=== PATIENT | female | born 1940 | race Caucasian/White ===

== ENCOUNTER → 2017-04-19 15:36 | Outpatient (CLI) | payer MEDICARE, SELFPAY ==
--- NOTE | 2017-04-19 15:46 | CT_ITS ---
STUDY: CTA CHEST REASON FOR EXAM: Female, 76 years old. Shortness of breath. Elevated d-dimer. RADIATION DOSAGE (If Supplied By Facility): CTDIvol = ( 9.40 ) mGy, DLP = ( 391.91 ) mGycm TECHNIQUE: The examination was performed with the intravenous administration of 100ML ml of Isovue 370 contrast material. Post-processing of the angiographic images was performed, with multiplanar reformation and 3D reconstruction. Individualized dose optimization techniques were used for this CT. COMPARISON: None. FINDINGS: Normal enhancement of the main pulmonary artery and right and left pulmonary arteries. Normal enhancement of the bilateral peripheral pulmonary arteries. There is no demonstrated pulmonary embolism. There is atherosclerotic tortuosity of the thoracic aorta without aneurysm. There is no demonstrated aortic dissection. Normal heart and pericardium. Sternal cerclage wires and vascular clips are present from a prior sternotomy and coronary artery bypass graft procedure (CABG). Normal mediastinum. Normal hilar regions. Normal visualized trachea and bronchi. The lungs are well expanded. There is minimal infiltrate versus scarring in the right lung apex. There is a small right pleural effusion and atelectasis. There are bilateral breast implants without evidence of leakage. There is evidence of median sternotomy. There are degenerative changes of thoracic spine. There is a large cyst in the upper pole the left kidney measuring approximately 7.[address]/CTA Chest W/WO Contrast IMPRESSION: 1. No evidence of pulmonary embolus. 2. No aortic dissection or aneurysm. 3. Status post CABG procedure. 4. Right pleural effusion and atelectasis. 5. Bilateral breast implants. 6. Left renal cyst. Electronically Signed: Lul Almanza DO at 17:12 EST Tel [phone], Service support ,
[2017-04-19 16:11] LABS: CREATININE FINGERSTICK 0.7 mg/dL (0.55-1.02)
== END ==
PROVIDERS: Family Provider Internal Medicine; PCP Internal Medicine; Visit Provider Nurse Practitioner
DX: R07.9 Chest pain, unspecified (principal); R06.02 Shortness of breath; R79.89 Other specified abnormal findings of blood chemistry
CPT/HCPCS: 71275; Q9967

== ENCOUNTER → 2017-10-26 17:35 | Outpatient (CLI) | payer MEDICARE, SELFPAY | PROVIDERS: Visit Provider Urology | DX: R82.99 Other abnormal findings in urine (principal) | CPT/HCPCS: 87086; 87088 ==

== ENCOUNTER → 2019-03-29 | Outpatient (CLI) | payer MEDICARE, SELFPAY ==
[2019-03-15 09:02] VITALS: BMI 29.7
== END | disposition home or self-care (01) ==
LOC: CVS 10:50
PROVIDERS: PCP Internal Medicine; Referring Provider Internal Medicine Cardiovascular Disease; Visit Provider Internal Medicine Cardiovascular Disease
DX: I25.10 Atherosclerotic heart disease of native coronary artery without angina pectoris (principal); Z95.2 Presence of prosthetic heart valve
CPT/HCPCS: 93306

== ENCOUNTER → 2019-04-01 | Outpatient (CLI) | payer MEDICARE, SELFPAY ==
[2019-03-15 09:02] VITALS: BMI 29.7
--- NOTE | 2019-04-01 10:33 | RAD_ITS ---
HISTORY: SOB PATIENT STATES STATED HE SAW FLUID IN HER CHEST ON THE ECHO. EXAM: XR Chest 2 Views: COMPARISON: CT scan of the chest from April 19, 2017 FINDINGS: # of images incl. paperwork: 2 Calcific plaque within the aortic arch persists. Sternal wires persists. Hyperdense capsules around the patient's breast implants are again demonstrated. Heart is not enlarged. No acute osseous pathology perceived. Pulmonary vascularity is distinct. No effusions. RAD/Chest PA and Lateral IMPRESSION: No acute cardiopulmonary disease perceived. at 0603 Reported and signed by: Michel Nolasco MD Electronically Signed: Michel Nolasco MD at 6:02 EST Tel , Service support ,
[2019-04-01 11:43] LABS: Anion Gap 3 (5-15); BUN 16 mg/dL (7-18); BUN/Creat Ratio 18.7 RATIO (10-20); Calcium,Total 10.1 mg/dL (8.5-10.1); Chloride 102 mmol/L (98-107); Creatinine, Serum 0.86 mg/dL (0.55-1.02); EST Glomerular Filtration Rate 68 mL/min (>60); Est Glom Filt Rate - Afr Amer 82 mL/min (>60); Glucose 89 mg/dL (74-106); Potassium 4.1 mmol/L (3.5-5.1); Sodium Level 138 mmol/L (136-145)
[2019-04-01 11:52] LABS: BNP,B-Type NATRIURETIC PEPTIDE 262.7 pg/mL (0-100)
== END | disposition home or self-care (01) ==
PROVIDERS: PCP Internal Medicine; Referring Provider Internal Medicine Cardiovascular Disease; Visit Provider Internal Medicine Cardiovascular Disease
DX: I25.10 Atherosclerotic heart disease of native coronary artery without angina pectoris (principal); I35.0 Nonrheumatic aortic (valve) stenosis; I36.1 Nonrheumatic tricuspid (valve) insufficiency; J90 Pleural effusion, not elsewhere classified; Z95.3 Presence of xenogenic heart valve
CPT/HCPCS: 36415; 71046; 80048; 83880

== ENCOUNTER → 2019-09-30 10:46 | Outpatient (CLI) | payer MEDICARE, SELFPAY ==
[2019-03-15 09:02] VITALS: BMI 29.7
[2019-09-30 11:56] LABS: AST(SGOT) 20 U/L (15-37); Alanine Aminotransfer ALT/SGPT 25 U/L (13-56); Albumin, Serum 3.6 g/dL (3.2-5.0); Alkaline Phosphatase 104 U/L (45-117); Bilirubin, Direct 0.21 mg/dL (0.00-0.30); Cholesterol 175 mg/dL (200); Globulin 4.3 g/dL (2.2-4.2); High Density Lipoprotein 61 mg/dL; Protein, Total 7.9 g/dL (6.4-8.2); Triglycerides 95 mg/dL; Very Low Density Lipoprotein 19 mg/dL (5-40)
== END ==
PROVIDERS: PCP Internal Medicine; Referring Provider Nurse Practitioner Family; Visit Provider Nurse Practitioner Family
DX: I25.10 Atherosclerotic heart disease of native coronary artery without angina pectoris (principal); E78.00 Pure hypercholesterolemia, unspecified; I10 Essential (primary) hypertension
CPT/HCPCS: 36415; 80061; 80076

== ENCOUNTER → 2019-11-26 | Outpatient (CLI) | payer MEDICARE, SELFPAY ==
[2019-10-04 11:10] VITALS: BMI 26.9
== END | disposition home or self-care (01) ==
LOC: CVS 10:45
PROVIDERS: PCP Internal Medicine; Referring Provider Internal Medicine Cardiovascular Disease; Visit Provider Internal Medicine Cardiovascular Disease
DX: I25.10 Atherosclerotic heart disease of native coronary artery without angina pectoris (principal)

== ENCOUNTER → 2020-08-14 11:18 | Outpatient (CLI) | payer MEDICARE, SELFPAY ==
[2019-10-04 11:10] VITALS: BMI 26.9
[2020-08-14 13:48] LABS: AST(SGOT) 17 U/L (15-37); Alanine Aminotransfer ALT/SGPT 20 U/L (13-56); Albumin, Serum 3.6 g/dL (3.2-5.0); Alkaline Phosphatase 104 U/L (45-117); Bilirubin, Direct 0.16 mg/dL (0.00-0.30); Cholesterol 170 mg/dL (200); Globulin 4.1 g/dL (2.2-4.2); High Density Lipoprotein 72 mg/dL; Protein, Total 7.7 g/dL (6.4-8.2); Triglycerides 75 mg/dL; Very Low Density Lipoprotein 15 mg/dL (5-40)
== END ==
PROVIDERS: PCP Internal Medicine; Visit Provider Internal Medicine Cardiovascular Disease
DX: E78.00 Pure hypercholesterolemia, unspecified (principal)
CPT/HCPCS: 36415; 80061; 80076

== ENCOUNTER → 2020-09-09 09:46 | Outpatient (CLI) | payer MEDICARE, SELFPAY ==
[2019-10-04 11:10] VITALS: BMI 26.9
[2020-08-21 14:44] VITALS: BMI 26.4
--- NOTE | 2020-09-09 09:50 | ECHOCS_ITS ---
Reason For Study: VALVE REPLACEMENT EVAL Procedure This was a 2D Doppler, Color Flow transthoracic echocardiogram. Strain analysis not performed due to suboptimal images. The study was technically difficult. Contrast injection was performed. Exam performed in department. Left Ventricle Normal LV size. Left ventricular systolic function is normal. The estimated ejection fraction is 65 %. No regional wall motion abnormalities noted. Right Ventricle Normal RV size. Normal systolic function. Atria The left atrium is mildly enlarged. Normal right atrium. No doppler evidence for ASD. Mitral Valve There is severe mitral annular calcification. Extension of the mitral annular calcification onto the mitral valve leaflets. Mild-Moderate mitral valve stenosis. Trivial mitral valve insufficiency. Tricuspid Valve Normal tricuspid valve. Mild tricuspid valve insufficiency. Right ventricular systolic pressure estimated to be 34 mmHg. Aortic Valve Stable appearing bioprosthetic aortic valve apparatus. Trivial transvalvular insufficiency of the aortic valve. Pulmonic Valve Mild (1+) pulmonic valve insufficiency. Great Vessels Normal sized aortic root. Pericardium/Pleural No pericardial effusion. Medication 22 gauge I.V. with prn adaptor inserted into left arm. Diluted definity 3ml given slow IV push to enhance endocardial definition. MMode/2D Measurements & Calculations LVIDd: 3.3 cm IVSd: 1.0 cm LVOT diam: 1.9 cm LVIDs: 2.1 cm LVPWd: 1.00 cm RVDd: 3.1 cm FS: 36.8 % LVOT area: 2.8 cm2 Ao root diam: 3.4 cm LAV(MOD-bp): 42.8 ml LVAd ap4: 22.9 cm2 LAV(MOD-bp) Indexed: 24.2 ml/m2 LVLd ap4: 6.7 cm LAV(MOD-sp2): 40.8 ml EDV(MOD-sp4): 63.0 ml LAV(MOD-sp4): 44.3 ml EDV(sp4-el): 66.5 ml LVAs ap4: 12.8 cm2 LVLs ap4: 5.6 cm ESV(MOD-sp4): 24.1 ml ESV(sp4-el): 24.6 ml EF(MOD-sp4): 61.8 % EF(sp4-el): 63.1 % SV(MOD-sp4): 38.9 ml SV(sp4-el): 42.0 ml LA A4 area: 17.2 cm2 LA dimension(2D): 3.9 cm RA A4 area: 12.9 cm2 Time Measurements MV dec time: 0.38 sec Doppler Measurements & Calculations MV E max lencho: 164.0 cm/sec Lat Peak E' Lencho: 10.3 cm/sec Med Peak E' Lencho: 4.3 cm/sec MV A max lencho: 94.5 cm/sec E/E' lat: 16.0 E/E' med: 38.4 MV E/A: 1.7 MV V2 max: 183.1 cm/sec MV P1/2t max lencho: 187.0 cm/sec Ao V2 max: 189.4 cm/sec MV max P.4 mmHg MV P1/2t: 123.5 msec Ao max P.3 mmHg MV V2 mean: 102.2 cm/sec MV dec slope: 443.4 cm/sec2 Ao V2 mean: 121.0 cm/sec MV mean P.8 mmHg MVA(P1/2t): 1.8 cm2 Ao mean P.0 mmHg MV V2 VTI: 55.3 cm Ao V2 VTI: 43.0 cm MVA(VTI): 1.2 cm2 SOLOMON(I,D): 1.6 cm2 SOLOMON(V,D): 1.4 cm2 LV V1 max: 91.3 cm/sec SV(LVOT): 68.5 ml PA V2 max: 90.9 cm/sec LV V1 max P.3 mmHg LV V1 mean P.9 mmHg LV V1 mean: 66.3 cm/sec LV V1 VTI: 24.4 cm PI end-d lencho: 87.6 cm/sec TR max lencho: 278.7 cm/sec MV P1/2t-pr_phl: 121.8 msec TR max P.1 mmHg ECHO/Echo Complete W/ Contrast Interpretation Summary The study was technically difficult. Contrast injection was performed. Left ventricular systolic function is normal. The estimated ejection fraction is 65 %. The left atrium is mildly enlarged. There is severe mitral annular calcification. Extension of the mitral annular calcification onto the mitral valve leaflets. Mild-Moderate mitral valve stenosis. Trivial mitral valve insufficiency. Mild tricuspid valve insufficiency. Stable appearing bioprosthetic aortic valve apparatus. Trivial transvalvular insufficiency of the aortic valve. Mild (1+) pulmonic valve insufficiency. Right ventricular systolic pressure estimated to be 34 mmHg. Transmitral diastolic flow velocities suggest diastolic dysfunction (pseudonorm al pattern). Ordering Physician: Nixon Waldron Referring Physician: SHARRI RIVERA Performed By: Enedina Onofre RDCS
== END ==
PROVIDERS: PCP Internal Medicine; Referring Provider Internal Medicine Cardiovascular Disease; Visit Provider Internal Medicine Cardiovascular Disease
DX: I25.10 Atherosclerotic heart disease of native coronary artery without angina pectoris (principal)
CPT/HCPCS: 93306; Q9957; A4216; C8929; J3490

== ENCOUNTER 2020-11-29 13:45 | Emergency (ER) | payer MEDICARE, SELFPAY ==
[2020-11-29 13:46] VITALS: BP 130/63; PULSE 75; RESP 18; TEMP 36.6; O2SAT 95; BMI 27.6
--- NOTE | 2020-11-29 15:22 | EDS_ITS ---
HPI History of Present Illness Chief Complaint: Ear Problem Informant: patient Onset/Context/Timing Onset: Yesterday Context: Sudden Onset Timing: Continuous Quality: Essentially total hearing loss left side Location: Left ear Current Severity: Severe Maximum Severity: Severe Worsened by: Nothing Relieved by: Nothing Associated Symptoms Associated Symptoms: Tinnitus Narrative Narrative: Patient is an elderly woman who presents with 24-hour history of abrupt hearing loss left ear. She has history of tenderness, hypothyroidism, hypercholesterolemia, essential hypertension, GERD and rheumatic heart disease. There is no history of diabetes. Patient states she has 2% hearing on the left side. She rubs her fingers by her ear and cannot hear anything. She denies headache. Denies visual symptoms. She denies trouble with speech or swallowing. She denies paresthesia, anesthesia motors. Denies problems with balance. She has no other complaints or symptoms. 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 Breast cancer Endometrial cancer Essential hypertension GERD (gastroesophageal reflux disease) Hypothyroidism Non-rheumatic mitral valve stenosis Nonrheumatic aortic (valve) stenosis Nonrheumatic tricuspid valve regurgitation Pleural effusion Pure hypercholesterolemia Renal cell carcinoma Tachycardia Home Medications multivitamin with iron 1 ea PO DAILY 06/25/16 [History Last Taken 06/25/16 08:00] ascorbic acid (vitamin C) 500 mg tablet 500 mg PO DAILY 10/04/19 [History Last Taken Unknown] atenolol 25 mg tablet 25 mg PO BID #180 tab 08/21/20 [Rx Last Taken Unknown] levothyroxine 75 mcg tablet 75 mcg PO DAILY 08/21/20 [History Last Taken Unknown] methenamine mandelate 1 gram tablet 1 g PO DAILY tab 08/21/20 [History Last Taken Unknown] rosuvastatin 10 mg tablet 10 mg PO DAILY 08/21/20 [History Last Taken Unknown] spironolactone 25 mg tablet 25 mg PO DAILY #90 tab 10/15/20 [Rx Last Taken Unknown] prednisone 10 mg PO UD #60 tab 11/29/20 [Rx Last Taken Unknown] Allergy/AdvReac Type Severity Reaction Status Date / Time adhesive tape Allergy Severe rash Verified 11/29/20 14:31 levofloxacin Allergy Hives Verified 11/29/20 14:31 nitrofurantoin Allergy Hives, Verified 11/29/20 14:31 Fever Sulfa (Sulfonamide Allergy Hives Verified 11/29/20 14:31 Antibiotics) ampicillin AdvReac Diarrhea Verified 11/29/20 14:31 cortisone AdvReac Increased Verified 11/29/20 15:32 BP, Flushed face (From Intraarticular Injection) Family History Father CAD (coronary artery disease) Diabetes Uncle Myocardial infarction CAD (coronary artery disease) Brother Diabetes Brother Cancer Surgical History History of aortic valve replacement with bioprosthetic valve (~12/28/12) History of appendectomy (~06/25/16) History of bilateral mastectomy History of bilateral oophorectomy History of dilatation and curettage (~2012) History of hysterectomy History of left heart catheterization (LHC) (~11/23/12) History of myomectomy (~2012) History of tonsillectomy Status post hysteroscopic polypectomy (~2012) Social History (Updated 11/29/20 @ 15:[address] Jovanny Dao MD) household members: none Smoking Status: Never smoker alcohol intake: current details: Rare substance use type: does not use caffeine: No ROS ROS ED Constitutional Constitutional ED: Denies chills, fever(s), subjective or sweats Eyes Eyes: Denies blurry vision, change in vision or diplopia ENT ENT ED: Reports other Details: Significant loss of hearing left ear. She denies drainage from her ear. She denies rash. Denies numbness of her face. ; Denies ear pain, rhinorrhea or sore throat Cardiovascular Cardiovascular: Denies chest pain or palpitations Respiratory/Chest Respiratory/Chest: Denies dyspnea Gastrointestinal Gastrointestinal: Denies nausea or vomiting Integumentary Denies Abrasions or rash Neurologic Neurologic: Denies headache(s), paresthesias or weakness Allergic/Immunologic Allergic/Immunologic ED: Denies mouth swelling, tongue swelling or urticaria EXAM Physical Exam Const Vital Signs: 11/29/20 13:46 Temperature 98 F Temperature Source Temporal Pulse Rate 75 Respiratory Rate 18 Blood Pressure 130/63 H Blood Pressure Mean 85 Pulse Ox 95 Oxygen Delivery Method Room Air Positive well nourished and well developed General Appearance ED: well developed and NAD; Negative for pallor HEENT Reports TM's clear, moist mucous membranes and dry mucous membranes HEENT Narrative: Macario test lateralizes to the right. Sonja test indicates problems with bone and air conduction. The TM appears normal with normal landma rks. There is no obvious or significant effusion noted. There is no pain with pressure on the tragus plan auricle. There is no lesions in the auditory canal. There is no tenderness over the mastoid region. There is no preauricular lymphadenopathy. Tympanic Membrane ED: Yes TM's clear Mouth ED: Yes dry mucous membranes Mouth: dry mucous membranes Eyes PERRL and EOMs intact bilaterally General Eye ED: Negative for pale conjunctiva or scleral icterus Neck no lymphadenopathy, supple and no JVD General: Negative for tenderness Chest Wall Negative for inspection of chest normal or palpation of chest normal Neuro oriented x3 and CN's II-XII intact bilaterally Sensorium / Orientation: alert Psych mental status grossly normal Skin no rashes or lesions noted and no wounds General Skin Exam: Negative for jaundice or pallor MDM MDM MDM Narrative Medical decision making narrative: Patient has evidence of of hearing loss due to neuro and conduction hearing loss based on patient's answers to the Sonja test. Case discussed with Dr. Robert Graff who is on-call for ENT. He requested high-dose prednisone. Patient is to call the office tomorrow to be seen later this coming week. Patient received 60 mg of prednisone in the department. She was written for 50 mg daily. Discharge Plan Triage Chief Complaint: Ear Problem ED Provider: Jovanny Dao Dx/Rx/DC Orders Clinical Impression: Hearing loss in left ear Instructions: Understanding Hearing Loss Prescriptions: New prednisone 10 mg tablet 10 mg PO UD Qty: 60 RF: 0 No Action ascorbic acid (vitamin C) 500 mg tablet 500 mg PO DAILY RF: 0 levothyroxine 75 mcg tablet 75 mcg PO DAILY RF: 0 rosuvastatin 10 mg tablet 10 mg PO DAILY RF: 0 atenolol 25 mg tablet 25 mg PO BID Qty: 180 RF: 4 methenamine mandelate 1 gram tablet 1 g PO DAILY RF: 0 multivitamin with iron 1 EACH tablet 1 ea PO DAILY RF: 0 spironolactone 25 mg tablet 25 mg PO DAILY Qty: 90 RF: 3 Primary Care Provider: Heaven Nelson Referrals: Heaven Nelson MD [Primary Care Provider] - Robert Graff MD [STAFF PHYSICIAN] - 3-5 Days Activity Restrictions/Additional Instructions: Call Dr. Robert Graff's office tomorrow morning for appointment to be seen later this week Disposition Disposition: Home, Self Care
[2020-11-29] MEDS: predniSONE 20 MG Tablet 60 MG PO (15:34)
[2020-11-29 15:47] VITALS: BP 129/78; PULSE 80; RESP 15; O2SAT 98
== END 2020-11-29 15:50 | disposition home or self-care (01) ==
PROVIDERS: Emergency Provider Emergency Medicine; PCP Internal Medicine
DX: H91.92 Unspecified hearing loss, left ear (principal); E03.9 Hypothyroidism, unspecified; E78.00 Pure hypercholesterolemia, unspecified; I10 Essential (primary) hypertension; K21.9 Gastro-esophageal reflux disease without esophagitis; I25.10 Atherosclerotic heart disease of native coronary artery without angina pectoris; Z79.899 Other long term (current) drug therapy
CPT/HCPCS: 99282

== ENCOUNTER → 2021-01-04 07:12 | Outpatient (CLI) | payer MEDICARE, SELFPAY ==
--- NOTE | 2021-01-04 07:37 | MRI_ITS ---
EXAM: MR HEAD WITHOUT AND WITH INTRAVENOUS CONTRAST, INTERNAL AUDITORY CANAL PROTOCOL : 1940 CLINICAL INDICATION: HEARING LOSS TECHNIQUE: Multiplanar and multisequence MR images of the internal auditory canal were obtained without and with intravenous contrast. This report was created using [employer] report [employer] technology. CONTRAST: IV 15cc dotarem COMPARISON: None. FINDINGS: CRANIAL NERVES: Unremarkable. No mass. No abnormal enhancement. COCHLEA AND SEMICIRCULAR CANALS: Unremarkable. CEREBELLOPONTINE ANGLES: Unremarkable. No mass. BRAIN AND EXTRA-AXIAL SPACES: Multiple foci of increased T2 signal intensity within the cerebral white matter consistent with gliosis/chronic microvascular disease. No intra- or extra-axial hemorrhage. No intracranial mass or mass effect. There is preservation of the adams/white matter interface. Posterior fossa structures are unremarkable. Ventricles are appropriate for age. No hydrocephalus. Basal cisterns are patent. No abnormal contrast enhancement BONES/JOINTS: Unremarkable. No discrete lytic or blastic abnormalities. SINUSES: 15 mm mucous retention cyst noted within the left maxillary sinus. MASTOID AIR CELLS: Unremarkable as visualized. Clear. ORBITS: Unremarkable as visualized. Both globes, extraocular muscles, optic nerves and retrobulbar fat appear unremarkable. MRI/Brain W/WO Contrast IMPRESSION: 1. No acute intracranial abnormality. 2. Chronic microvascular changes. 3. Normal examination of the IACs and temporal bones. at 1043 Reported and signed by: Foster Vargas MD Electronically Signed: Foster Vargas MD at 10:42 EST Tel , Service support ,
[2021-01-04 08:10] LABS: CREATININE FINGERSTICK < 0.6 mg/dL (0.55-1.02); EGFR FINGERSTICK > 60.0000 mL/min (>60)
== END ==
PROVIDERS: PCP Internal Medicine; Referring Provider Otolaryngology; Visit Provider Otolaryngology
DX: H91.22 Sudden idiopathic hearing loss, left ear (principal)
CPT/HCPCS: 70553; A9585

== ENCOUNTER → 2021-07-09 | Outpatient (CLI) | payer MEDICARE, SELFPAY ==
--- NOTE | 2021-07-09 13:52 | ECHOD_ITS ---
Reason For Study: valve replacement Procedure This was a 2D Doppler, Color Flow transthoracic echocardiogram. The study was technically difficult. Contrast injection was performed. Exam performed in department. Left Ventricle Based upon the 2D echocardiographic and contrast enhanced images obtained there appears to be grossly normal left ventricular size, wall motion, and systolic function. The estimated ejection fraction is 65 %. Right Ventricle Based upon the 2D echocardiographic images obtained there appears to be grossly normal right ventricular size and systolic function. Atria The left atrium is mildly enlarged. Normal right atrium. No doppler evidence for ASD. Mitral Valve There is severe mitral annular calcification. Extension of the mitral annular calcification on the base of the posterior mitral valve leaflet. Anterior leaflet diffuse mitral valve thickening. Mild focal mitral valve calcification of the anterior leaflet. Based upon the mitral valve gradients obtained there appears to be mild to moderate mitral valve stenosis. Trivial mitral valve insufficiency. Tricuspid Valve Normal tricuspid valve. Mild to moderate (1-2+) tricuspid valve insufficiency. Right ventricular systolic pressure estimated to be 38 mmHg. Aortic Valve Stable appearing bioprosthetic aortic valve apparatus. Trivial transvalvular insufficiency of the aortic valve. Pulmonic Valve The pulmonic valve is not well visualized. Mild (1+) pulmonic valve insufficiency. Great Vessels Normal sized aortic root. Pericardium/Pleural No pericardial effusion. Medication 22 gauge I.V. with prn adaptor inserted into left arm. Diluted definity 4ml given slow IV push to enhance endocardial definition. MMode/2D Measurements & Calculations LVIDd: 3.5 cm IVSd: 1.2 cm Ao root diam: 2.1 cm LVIDs: 2.1 cm LVPWd: 0.92 cm FS: 39.4 % Doppler Measurements & Calculations MV E max lencho: 134.3 cm/sec Lat Peak E' Lencho: 8.8 cm/sec Med Peak E' Lencho: 5.4 cm/sec MV A max lencho: 103.5 cm/sec E/E' lat: 15.3 E/E' med: 24.8 MV E/A: 1.3 MV V2 max: 155.4 cm/sec MV P1/2t max lencho: 145.1 cm/sec Ao V2 max: 178.1 cm/sec MV max P.7 mmHg MV P1/2t: 85.2 msec Ao max P.8 mmHg MV V2 mean: 96.5 cm/sec Ao V2 mean: 124.6 cm/sec MV mean P.0 mmHg MV dec slope: 499.0 cm/sec2 Ao mean P.8 mmHg MV V2 VTI: 40.5 cm MVA(P1/2t): 2.6 cm2 Ao V2 VTI: 38.1 cm LV V1 max: 105.7 cm/sec PA V2 max: 114.5 cm/sec TR max lencho: 295.9 cm/sec LV V1 max P.5 mmHg TR max P.0 mmHg LV V1 mean P.5 mmHg LV V1 mean: 75.9 cm/sec LV V1 VTI: 23.3 cm ECHO/Echo Complete W/ Contrast Interpretation Summary The study was technically difficult. Contrast injection was performed. Based upon the 2D echocardiographic and contrast enhanced images obtained there appears to be grossly normal left ventricular size, wall motion, and systolic function. The estimated ejection fraction is 65 %. The left atrium is mildly enlarged. There is severe mitral annular calcification. Extension of the mitral annular calcification on the base of the posterior mitr al valve leaflet. Anterior leaflet diffuse mitral valve thickening. Mild focal mitral valve calcification of the anterior leaflet. Based upon the mitral valve gradients obtained there appears to be mild to mode rate mitral valve stenosis. Trivial mitral valve insufficiency. Mild to moderate (1-2+) tricuspid valve insufficiency. Stable appearing bioprosthetic aortic valve apparatus. Trivial transvalvular insufficiency of the aortic valve. Mild (1+) pulmonic valve insufficiency. Right ventricular systolic pressure estimated to be 38 mmHg. Transmitral diastolic flow velocities suggest diastolic dysfunction (pseudonorm al pattern). Ordering Physician: Nixon Waldron Performed By: Nicki Butler RCS
== END | disposition home or self-care (01) ==
LOC: CVS 13:50
PROVIDERS: PCP Internal Medicine; Visit Provider Internal Medicine Cardiovascular Disease
DX: I25.10 Atherosclerotic heart disease of native coronary artery without angina pectoris (principal)
CPT/HCPCS: 93306; Q9957; A4216; C8929

== ENCOUNTER 2022-06-21 07:57 | Emergency (ER) | payer MEDICARE, SELFPAY ==
[2022-06-21 07:58] VITALS: BP 143/91; PULSE 121; RESP 16; TEMP 36.4; O2SAT 98; BMI 27.1
[2022-06-21 08:16] VITALS: BP 111/68; PULSE 112; RESP 24; O2SAT 96
--- NOTE | 2022-06-21 08:17 | RAD_ITS ---
STUDY: X-RAY CHEST REASON FOR EXAM: Female, 81 years old. Palpitations TECHNIQUE: Single AP portable view of the chest. COMPARISON: Comparison is made with prior study dated April 01, 2019. FINDINGS: EKG electrodes are seen. Stable mild increased linear markings at the right lung base suggestive of scarring. There is no demonstrated pleural abnormality. Sternal cerclage wires and vascular clips are present from a prior sternotomy and coronary artery bypass graft procedure (CABG). A loop recorder device is seen overlying the left cardiac border. Normal mediastinum and ting. Normal visualized pulmonary arteries. There is atherosclerotic calcification of the aortic arch with tortuosity. There are degenerative changes of the visualized thoracic spine. Normal visualized ribs, clavicles, and shoulders. There is no demonstrated abnormality of the visualized soft tissue structures of the upper abdomen. RAD/Chest 1 View (Portable) IMPRESSION: Minimal increased markings at the right lung base suggestive of scarring. Electronically Signed: Ben Nguyen MD at 9:00 EDT ,
--- NOTE | 2022-06-21 08:19 | EDS_ITS ---
HPI History of Present Illness Chief Complaint: Palpitations Informant: patient Onset/Context/Timing Onset: Yesterday Narrative Narrative: Patient presents secondary to palpitations. She states she feels that her h earts been racing since 1130 last night. Heart rate has been up in the 140s much of the overnight hours. She has a history of A-fib. 3 days ago her rate control medication was switched from atenolol to metoprolol. Since then she had 2 separate episodes of heart racing. The initial episode occurred when she had forgot to take her medicine and once taking it the symptoms subsided. Last evening she states she took her medicine as directed and still had heart racing and palpitations. She denies chest pain. She states she was started on Eliquis 3 days ago as well. 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 Breast cancer Endometrial cancer Essential hypertension GERD (gastroesophageal reflux disease) Hypothyroidism Non-rheumatic mitral valve stenosis Nonrheumatic aortic (valve) stenosis Nonrheumatic tricuspid valve regurgitation Pleural effusion Pure hypercholesterolemia Renal cell carcinoma Tachycardia Home Medications multivitamin with iron 1 ea PO DAILY 06/25/16 [History Last Taken 06/25/16 08:00] ascorbic acid (vitamin C) 500 mg tablet 500 mg PO DAILY 10/04/19 [History Last Taken Unknown] atenolol 25 mg tablet 25 mg PO BID #180 tabs 08/21/20 [Rx Last Taken Unknown] methenamine mandelate 1 gram tablet 1 g PO DAILY 08/21/20 [History Last Taken Unknown] rosuvastatin 10 mg tablet 10 mg PO DAILY 08/21/20 [History Last Taken Unknown] cholecalciferol (vitamin D3) 25 mcg (1,000 unit) tablet 25 mcg PO DAILY 06/16/21 [History Last Taken Unknown] spironolactone 25 mg tablet 25 mg PO BID #180 tabs 06/16/21 [Rx Last Taken Unknown] levothyroxine 100 mcg tablet 100 mcg PO 5XW 02/04/22 [History Last Taken Unknown] levothyroxine 50 mcg tablet 50 mcg PO .COMPLEX 02/04/22 [History Last Taken Unknown] Allergy/AdvReac Type Severity Reaction Status Date / Time adhesive tape Allergy Severe rash Verified 06/21/22 08:00 levofloxacin Allergy Hives Verified 06/21/22 08:00 nitrofurantoin Allergy Hives, Verified 06/21/22 08:00 Fever Sulfa (Sulfonamide Allergy Hives Verified 06/21/22 08:00 Antibiotics) ampicillin AdvReac Diarrhea Verified 06/21/22 08:00 cortisone AdvReac Increased Verified 06/21/22 08:00 BP, Flushed face (From Intraarticular Injection) Family History Father CAD (coronary artery disease) Diabetes Uncle Myocardial infarction CAD (coronary artery disease) Brother Diabetes Brother Cancer Surgical History History of aortic valve replacement with bioprosthetic valve (~12/28/12) History of appendectomy (~06/25/16) History of bilateral mastectomy History of bilateral oophorectomy History of dilatation and curettage (~2012) History of hysterectomy History of left heart catheterization (LHC) (~11/23/12) History of myomectomy (~2012) History of tonsillectomy Status post hysteroscopic polypectomy (~2012) Social History household members: none Smoking Status: Never smoker alcohol intake: current details: Rare substance use type: does not use caffeine: No ROS ROS ED Constitutional Constitutional ED: Denies chills or fever(s) Eyes Eyes: Denies change in vision or discharge from eye(s) ENT ENT ED: Denies discharge from eye(s), rhinorrhea or sore throat Cardiovascular Cardiovascular: Reports palpitations and racing heartbeat; Denies chest pain Respiratory/Chest Respiratory/Chest: Reports dyspnea; Denies cough Gastrointestinal Gastrointestinal: Denies abdominal pain, nausea or vomiting Genitourinary Genitourinary ED: Denies dysuria Musculoskeletal Musculoskeletal: Denies back pain or extremity pain Integumentary Denies Abrasions or rash Neurologic Neurologic: Denies headache(s) or weakness Psychiatric Psychiatric: Denies anxiety or depression Endocrine Endocrinology: Denies polydipsia or polyuria Allergic/Immunologic Allergic/Immunologic ED: Denies lip swelling or urticaria EXAM Physical Exam Const Vital Signs: 06/21/22 07:58 06/21/22 08:16 06/21/22 08:16 Temperature 97.6 F L Temperature Source Temporal Pulse Rate 121 H 112 H Respiratory Rate 16 24 H Respiratory Effort Normal Non-Labored Blood Pressure 143/91 H 111/68 Blood Pressure Mean 108 82 Pulse Ox 98 96 Oxygen Delivery Method Room Air Room Air 06/21/22 10:20 Temperature Temperature Source Pulse Rate 73 Respiratory Rate 16 Respiratory Effort Blood Pressure 108/61 Blood Pressure Mean 76 Pulse Ox 97 Oxygen Delivery Method Room Air Positive well nourished and well developed General Appearance ED: well developed HEENT Reports normocephalic and head/scalp atraumatic Eyes PERRL and EOMs intact bilaterally Neck supple Chest Wall inspection of chest normal and palpation of chest normal Resp normal respiratory effort and clear to auscultation bilaterally Cardio Rate: tachycardic Rhythm: abnormal rhythm irregularly irregular GI normal to inspection, nondistended, normoactive bowel sounds Palpation: soft Extremity normal to inspection Neuro oriented x3 and no sensory deficits noted Sensorium / Orientation: alert Motor Exam: strength 5/5 throughout Psych mental status grossly normal Skin no rashes or lesions noted MDM MDM MDM Narrative Medical decision making narrative: Patient placed on court recording monitor. EKG obtained to evaluate for cardiac arrhythmia/ischemia. Labwork obtained to evaluate for leukocytosis, anemia, and electrolyte derangement. Lab Data Attestation: I reviewed the patient's lab results. Labs: Laboratory Results - last 24 hr 06/21/22 06/21/22 08:30 08:30 WBC 8.1 RBC 4.70 Hgb 14.1 Hct 43.9 MCV 93.4 MCH 30.0 MCHC 32.1 RDW Std Deviation 46.5 H RDW Coeff of Jeaneth 13.5 Plt Count 241 MPV 9.6 Immature Gran % (Auto) 0.200 Neut % (Auto) 59.5 Lymph % (Auto) 33.9 [place] % (Auto) 5.5 Eos % (Auto) 0.7 Baso % (Auto) 0.2 Absolute Neuts (auto) 4.8 Absolute Lymphs (auto) 2.75 Nucleated RBC % 0 Sodium 136 Potassium 4.3 Chloride 101 Carbon Dioxide 28.0 Anion Gap 7 BUN 21 H Creatinine 1.01 Estim Creat Clear Calc 36.44 Est GFR (MDRD) Af Amer 67 Est GFR (MDRD) Non-Af 56 L BUN/Creatinine Ratio 20.8 H Glucose 123 H Calcium 9.9 TSH 3.06 Radiography Chest X-Ray - ED: 1 View, Read by ED Physician and Chronic Changes Diagnostic Testing: Clinical Impression(s) from Imaging Studies Chest X-Ray 06/21/22 08:17 IMPRESSION: Minimal increased markings at the right lung base suggestive of scarring. Electronically Signed: Ben Nguyen MD at 9:00 EDT , EKG Initial EKG: Attestation: I personally reviewed and interpreted this EKG as follows: Interpretation: Atrial Flutter (Atrial flutter with variable block. Ventricular rate of 110.) Follow-up EKG: Attestation: I personally reviewed and interpreted this EKG as follows: Interpretation: Sinus Rhythm (Sinus at 87 bpm with no acute ischemia.) Treatment and Re-Evaluation :: When nursing staff was starting the patient's IV line, she stated that she did not feel well. Nurse states she looked up at the monitor and she had a 5 or 6- second pause followed by sinus rhythm was initially bradycardic and then increased to a heart rate in the 80s. Repeat EKG confirms patient has converted to sinus rhythm. CBC and chemistry studies unremarkable. TSH unremarkable. I have paged the patient's senior database engineer as patient states he was already considering changing her medication dosing. He is in a procedure at this time but family does not want to wait. I advised that I would talk with him when he calls and let them know if he wants to make any medication changes. While I was doing discharge paperwork Dr. Villagomez called back. He stated the patient does not have underlying hypertension he does not want to change her medications at this time. He states they will arrange to have her seen by EP. Discharge Plan Triage Chief Complaint: Palpitations ED Provider: Jerrica Liu Dx/Rx/DC Orders Clinical Impression: Atrial flutter Instructions: ED Atrial Flutter Prescriptions: No Action ascorbic acid (vitamin C) 500 mg tablet 500 mg PO DAILY rosuvastatin 10 mg tablet 10 mg PO DAILY atenolol 25 mg tablet 25 mg PO BID Qty: 180 4RF methenamine mandelate 1 gram tablet 1 g PO DAILY Rx Instructions: administer after meals and at bedtime cholecalciferol (vitamin D3) 25 mcg (1,000 unit) tablet 25 mcg PO DAILY spironolactone 25 mg tablet 25 mg PO BID Qty: 180 3RF levothyroxine 50 mcg tablet 50 mcg PO .COMPLEX Rx Instructions: 50 mcg orally 1 tab on Monday and Monday; levothyroxine 100 mcg tablet 100 mcg PO 5XW multivitamin with iron 1 EACH tablet 1 ea PO DAILY Label Comments: SUPPLEMENT Primary Care Provider: Heaven Nelson Referrals: Heaven Nelson MD [Primary Care Provider] - Abran Villagomez MD [Non-Staff] - 1 Week Disposition Disposition: Home, Self Care
[2022-06-21] MEDS: 0.9% Normal Saline 1,000 ML 150 ML IV (08:37)
[2022-06-21 08:45] LABS: Absolute Lymphocyte Count 2.75 X10^3/uL (0.83-4.51); Absolute Neutrophil Count 4.8 X10^3/uL (2.0-7.7); Basophil# 0.02 X10^3/uL; Basophil% 0.2 % (0-1); Eosinophil# 0.06 X10^3/uL; Eosinophils% 0.7 % (0-5); Hematocrit 43.9 % (37-47); Hemoglobin 14.1 g/dL (12.0-15.0); Lymphocyte # 2.75 X10^3/ul (0.83-4.51); Lymphocyte % 33.9 % (19-41); Mean Corp Hgb Conc 32.1 g/dL (32-36); Mean Corpuscular Volume 93.4 fL (81-99); Mean Platelet Vol. 9.6 fl (6.2-12.0); Monocyte# 0.45 X10^3/uL; Monocyte% 5.5 % (0-10); NRBC Flagged by Analyzer 0 % (0-5); Neutrophil # 4.82 X10^3/uL (2.7-7.7); Neutrophil % 59.5 % (47-70); Platelet Count 241 K/mm3 (150-450); RBC Distribution Width CV 13.5 % (11.6-14.6); RBC Distribution Width SD 46.5 fl (35.1-43.9); White Blood Count 8.1 K/mm3 (4.4-11.0)
[2022-06-21 09:09] LABS: Anion Gap 7 (5-15); BUN 21 mg/dL (7-18); BUN/Creat Ratio 20.8 RATIO (10-20); Calcium,Total 9.9 mg/dL (8.5-10.1); Chloride 101 mmol/L (98-107); Creatinine, Serum 1.01 mg/dL (0.55-1.02); EST Glomerular Filtration Rate 56 mL/min (>60); Est Glom Filt Rate - Afr Amer 67 mL/min (>60); Estimated Creatinine Clearance 36.44 ml/min; Glucose 123 mg/dL (74-106); Potassium 4.3 mmol/L (3.5-5.1); Sodium Level 136 mmol/L (136-145); Thyroid Stim Hormone (TSH) 3.06 uIU/mL (0.358-3.74)
[2022-06-21 10:20] VITALS: BP 108/61; PULSE 73; RESP 16; O2SAT 97
--- NOTE | 2022-06-21 10:20 | CM.ED ---
Social Work Note SW was stopped by patient's inquiring about discharge. SW to inquire. ZHENG met with MD Liu and DEIDRE Gilbert explaining patient's was inquiring about discharge. explained they are waiting on a return phone call from another medical professional but can contact patient later if they need to leave. ZHENG met with patient and patient's and introduced herself and role as [facility] Telesales Manager. ZHENG reviewed conversation with MD Liu. Patient reports she wants to discharge and is fine with a follow up call. MD updated and will further assist with discharge. Isabel Prieto HOSIERY REPAIRER, LAUREL
[2022-06-21 10:38] VITALS: BP 112/58; PULSE 89; RESP 16; O2SAT 100
== END 2022-06-21 10:38 | disposition home or self-care (01) ==
PROVIDERS: Emergency Provider Emergency Medicine; PCP Internal Medicine; Visit Provider Emergency Medicine
DX: I48.92 Unspecified atrial flutter (principal); I48.91 Unspecified atrial fibrillation; I25.10 Atherosclerotic heart disease of native coronary artery without angina pectoris; E78.00 Pure hypercholesterolemia, unspecified; I10 Essential (primary) hypertension; Z79.899 Other long term (current) drug therapy
CPT/HCPCS: 71045; 80048; 84443; 85025; 93005; 96360; 96361; 99284; A4216

== ENCOUNTER 2022-11-21 14:33 | Emergency (ER) | payer MEDICARE, SELFPAY ==
[2022-11-21 14:41] VITALS: BP 158/100; PULSE 72; RESP 16; TEMP 36.4; O2SAT 97
--- NOTE | 2022-11-21 14:42 | EKG12_ITS ---
Test Reason : Blood Pressure : / mmHG Vent. Rate : 069 BPM Atrial Rate : 069 BPM P-R Int : 140 ms QRS Dur : 074 ms QT Int : 394 ms P-R-T Axes : 071 026 046 degrees QTc Int : 422 ms Normal sinus rhythm Left atrial enlargement Nonspecific ST abnormality Abnormal ECG Confirmed by BENTLEY MIXON, RODDY ([id number]), purchasing expeditor HIMANSHU ORTEGA ([id number]) on 11/25/2022 2:30:19 PM Referred By: Confirmed By:RODDY HAGAN MD
[2022-11-21 15:03] LABS: Absolute Lymphocyte Count 1.43 X10^3/uL (0.83-4.51); Absolute Neutrophil Count 4.5 X10^3/uL (2.0-7.7); Basophil# 0.02 X10^3/uL; Basophil% 0.3 % (0-1); Eosinophil# 0.04 X10^3/uL; Eosinophils% 0.6 % (0-5); Hematocrit 40.7 % (37-47); Hemoglobin 12.7 g/dL (12.0-15.0); Lymphocyte # 1.43 X10^3/ul (0.83-4.51); Lymphocyte % 22.4 % (19-41); Mean Corp Hgb Conc 31.2 g/dL (32-36); Mean Corpuscular Hgb 29.8 pg (27.0-32.0); Mean Corpuscular Volume 95.5 fL (81-99); Mean Platelet Vol. 9.8 fl (6.2-12.0); Monocyte# 0.38 X10^3/uL; Monocyte% 5.9 % (0-10); NRBC Flagged by Analyzer 0 % (0-5); Neutrophil % 70.5 % (47-70); Platelet Count 212 K/mm3 (150-450); RBC Distribution Width SD 48.7 fl (35.1-43.9); Red Blood Count 4.26 M/mm3 (4.2-5.4); White Blood Count 6.4 K/mm3 (4.4-11.0)
--- NOTE | 2022-11-21 15:26 | EDS_ITS ---
HPI History of Present Illness Chief Complaint: Shortness of Breath Detail of Chief Complaint: Exertional dyspnea. Dyspnea supine. Informant: patient Onset/Context/Timing Onset: Days Context: gradual Timing: Intermittent Quality: Positive for Dyspnea on exertion Current Severity: Mild Maximum Severity: Mild Worsened by: Exertion and Lying flat Relieved by: Nothing Associated Symptoms sore throat; Negative for cough, rhinorrhea, post nasal drip, ear pain, fever, subjective, chills, sweats, clear sputum, white sputum, yellow sputum or green sputum Chest Pain: Positive for None Narrative Narrative: 82-year-old female history of prior pleural effusion, hypertension, replaced aortic valve, breast cancer, renal cancer and endometrial cancer although her prior stage I. Said she has been short of breath or weak with exertion. Also when lying supine. Denies fever. Denies chills. Denies cough. Denies hemoptysis. Denies chest pain. Denies any melena. No history of DVT or PE. No hemoptysis. No recent travel, surgery or immobilization. No recent hospitalization. 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 Breast cancer Endometrial cancer Essential hypertension GERD (gastroesophageal reflux disease) Hypothyroidism Non-rheumatic mitral valve stenosis Nonrheumatic aortic (valve) stenosis Nonrheumatic tricuspid valve regurgitation Pleural effusion Pure hypercholesterolemia Renal cell carcinoma Tachycardia Home Medications multivitamin with iron 1 ea PO DAILY 06/25/16 [History Last Taken 06/25/16 08:00] ascorbic acid (vitamin C) 500 mg tablet 500 mg PO DAILY 10/04/19 [History Last Taken Unknown] atenolol 25 mg tablet 25 mg PO BID #180 tabs 08/21/20 [Rx Last Taken Unknown] methenamine mandelate 1 gram tablet 1 g PO DAILY 08/21/20 [History Last Taken Unknown] rosuvastatin 10 mg tablet 10 mg PO DAILY 08/21/20 [History Last Taken Unknown] cholecalciferol (vitamin D3) 25 mcg (1,000 unit) tablet 25 mcg PO DAILY 06/16/21 [History Last Taken Unknown] spironolactone 25 mg tablet 25 mg PO BID #180 tabs 06/16/21 [Rx Last Taken Unknown] levothyroxine 100 mcg tablet 100 mcg PO 5XW 02/04/22 [History Last Taken Unknown] levothyroxine 50 mcg tablet 50 mcg PO .COMPLEX 02/04/22 [History Last Taken Unknown] Allergy/AdvReac Type Severity Reaction Status Date / Time adhesive tape Allergy Severe rash Verified 11/21/22 14:34 levofloxacin Allergy Hives Verified 11/21/22 14:34 nitrofurantoin Allergy Hives, Verified 11/21/22 14:34 Fever Sulfa (Sulfonamide Allergy Hives Verified 11/21/22 14:34 Antibiotics) ampicillin AdvReac Diarrhea Verified 11/21/22 14:34 cortisone AdvReac Increased Verified 11/21/22 14:34 BP, Flushed face (From Intraarticular Injection) Family History Father CAD (coronary artery disease) Diabetes Uncle Myocardial infarction CAD (coronary artery disease) Brother Diabetes Brother Cancer Surgical History History of aortic valve replacement with bioprosthetic valve (~12/28/12) History of appendectomy (~06/25/16) History of bilateral mastectomy History of bilateral oophorectomy History of dilatation and curettage (~2012) History of hysterectomy History of left heart catheterization (LHC) (~11/23/12) History of myomectomy (~2012) History of tonsillectomy Status post hysteroscopic polypectomy (~2012) Social History household members: none Smoking Status: Never smoker alcohol intake: current details: Rare substance use type: does not use caffeine: No ROS ROS ED ROS Narrative Shortness of breath with exertion and supine. Review of Systems ROS Unobtainable: Denies due to encephalopathy Constitutional Constitutional ED: Denies chills or fever(s) Eyes Eyes: Denies blurry vision ENT ENT ED: Denies ear pain Cardiovascular Cardiovascular: Reports orthopnea; Denies chest pain, palpitations or racing heartbeat Respiratory/Chest Respiratory/Chest: Reports dyspnea, dyspnea on exertion and orthopnea; Denies cough or sputum Gastrointestinal Gastrointestinal: Denies abdominal pain, diarrhea, melena, nausea or vomiting Genitourinary Genitourinary ED: Denies dysuria or hematuria Integumentary Denies abscess Neurologic Neurologic: Denies headache(s) Psychiatric Psychiatric: Denies anxiety Endocrine Endocrinology: Denies cold intolerance Hematologic/Lymphatic Hematologic/Lymphatic: Denies easy bleeding, easy bruising or lymphadenopathy Allergic/Immunologic Allergic/Immunologic ED: Denies mouth swelling, tongue swelling or urticaria EXAM Physical Exam Narrative Exam Narrative: 82-year-old female no acute distress. Vital signs stable afebrile. Pulse ox 97% on room air no signs hypoxia. H EENT exam unremarkable. Neck nontender. Lungs clear to auscultation bilaterally. Heart regular rhythm no murmur. Rate is 70. Chest wall nontender. Abdomen soft nontender. Moving all 4 extremities. Calves are nontender. No cords. Trace ankle edema bilaterally which is chronic. Neurologically she is awake and alert with no focal motor deficits. Const Vital Signs: 11/21/22 14:41 11/21/22 16:53 11/21/22 16:54 Temperature 97.5 F L Temperature Source Temporal Pulse Rate 72 Respiratory Rate 16 Respiratory Effort Short of Breath Respiratory Depth Normal Blood Pressure 158/100 H Blood Pressure Mean 119 Pulse Ox 97 98 Oxygen Delivery Method Room Air Room Air Positive well nourished and well developed; Negative for cachectic, contractures or unkempt General Appearance ED: well developed and NAD; Negative for unkempt, cachectic, contractures or pallor Nutritional Appearance: Negative for cachectic HEENT Reports moist mucous membranes; Denies dry mucous membranes atraumatic; Negative for trauma or tenderness Mouth ED: No dry mucous membranes Mouth: No dry mucous membranes Eyes PERRL and EOMs intact bilaterally General Eye ED: Negative for pale conjunctiva or scleral icterus Neck no lymphadenopathy, supple, no meningeal signs and no JVD General: Negative for tenderness Lymph Lymphatic: Negative for other Chest Wall Chest: Negative for other Resp normal respiratory effort and clear to auscultation bilaterally Effort and Inspection: Negative for pain with movement Auscultation: Negative for rales, rhonchi or wheezes Cardio regular rate, regular rhythm, S1 normal heart sound, S2 normal heart sound and no murmurs Rate: Negative for bradycardia or tachycardic Rhythm: Negative for abnormal rhythm GI non-tender, non-distended and no masses Inspection: Negative for other Auscultation: normoactive bowel sounds Palpation: soft; Negative for tender or guarding Bladder / Kidney Exam: No other Back/Spine no CVA tenderness and normal to inspection General Back: Negative for CVA tenderness Extremity Negative for normal to inspection Extremity Narrative: Trace ankle edema. Chronic. General Extremety ED: Yes edema; Negative for tenderness General Extremity: edema Neuro oriented x3 and CN's II-XII intact bilaterally Sensorium / Orientation: alert, oriented to person, oriented to place and oriented to time; Negative for orientation impaired, confused, lethargic or stuporous Motor Exam: strength 5/5 throughout Psych mental status grossly normal Appearance: Negative for unkempt Attitude: No agitated Mood & Affect: Negative for depressed or anxious Thought Process: normal thought process Skin no wounds and skin turgor normal General Skin Exam: Negative for jaundice or pallor Lesions: no lesions Rashes: no rashes Trauma: Negative for abrasion or laceration MDM MDM MDM Narrative Medical decision making narrative: 82-year-old female with dyspnea on exertion and supine. History of prior pleural effusions. Very well may be the cause versus cardiac etiology versus pneumonia versus other. She has no prior history of DVT or PE or risk factors. Repeat exam patient doing well at 6:40 PM. We went over her test results her chest x-ray and EKG. I do not have a specific cause for her positional shortness of breath. I did discuss with her doing a CTA of her chest looking for a PE or pleural effusion has not shown up on the chest x-ray she did not want have any further test done and want to be discharged home and follow-up with her primary care provider as an outpatient. History & Record Review Discussion w/independent historian: Patient Additional record(s) reviewed:: Prior outpatient record, Prior ED visit and Prior labs Lab Data Attestation: I reviewed the patient's lab results. Lab results narrative: CBC unremarkable. White count 6.4. H&H 12.7 and 40. Platelets of 212. Chemistries show gap of 4 BUN and creatinine 21 and 0.8. Glucose 105. Troponin is 9. 2-hour troponin normal at 10. Chest x-ray portable single view shows no acute abnormality. Chronic changes. BNP is 165. Labs: Laboratory Results - last 24 hr 11/21/22 11/21/22 14:52 17:14 WBC 6.4 RBC 4.26 Hgb 12.7 Hct 40.7 MCV 95.5 MCH 29.8 MCHC 31.2 L RDW Std Deviation 48.7 H RDW Coeff of Jeaneth 14.0 Plt Count 212 MPV 9.8 Immature Gran % (Auto) 0.300 Neut % (Auto) 70.5 H Lymph % (Auto) 22.4 [place] % (Auto) 5.9 Eos % (Auto) 0.6 Baso % (Auto) 0.3 Absolute Neuts (auto) 4.5 Absolute Lymphs (auto) 1.43 Nucleated RBC % 0 Sodium 137 Potassium 4.4 Chloride 104 Carbon Dioxide 29.0 Anion Gap 4 L BUN 21 H Creatinine 0.88 Est GFR (MDRD) Af Amer 79 Est GFR (MDRD) Non-Af 65 BUN/Creatinine Ratio 23.9 H Glucose 105 Calcium 9.5 Troponin I High Sens 9 10 B-Natriuretic Peptide 165.0 H Radiography Chest X-Ray - ED: 1 View, Read by ED Physician, Read by Radiologist, Heart, Lungs, Mediastinum, Bony Structures, No Acute Disease and Chronic Changes Diagnostic Testing: Clinical Impression(s) from Imaging Studies Chest X-Ray 11/21/22 15:28 IMPRESSION: Stable chest with no acute or active cardiopulmonary disease. Electronically Signed: Brad Cerrato MD at 15:42 EDT , Chest x-ray, portable, single view, interpreted both by myself and the radiologist shows no acute abnormality. Left-sided pacemaker. Prior sternotomy with sternal wires. No significant effusion. No pneumonia normal silhouette. Discharge Plan Triage Chief Complaint: Shortness of Breath ED Provider: Say Morfin Dx/Rx/DC Orders Clinical Impression: History of pleural effusion, Acute dyspnea, History of hypertension Instructions: ED Dyspnea Prescriptions: No Action ascorbic acid (vitamin C) 500 mg tablet 500 mg PO DAILY rosuvastatin 10 mg tablet 10 mg PO DAILY atenolol 25 mg tablet 25 mg PO BID Qty: 180 4RF methenamine mandelate 1 gram tablet 1 g PO DAILY Rx Instructions: administer after meals and at bedtime cholecalciferol (vitamin D3) 25 mcg (1,000 unit) tablet 25 mcg PO DAILY spironolactone 25 mg tablet 25 mg PO BID Qty: 180 3RF levothyroxine 50 mcg tablet 50 mcg PO .COMPLEX Rx Instructions: 50 mcg orally 1 tab on Monday and Monday; levothyroxine 100 mcg tablet 100 mcg PO 5XW multivitamin with iron 1 EACH tablet 1 ea PO DAILY Patient Comments: SUPPLEMENT Primary Care Provider: Heaven Nelson Referrals: Heaven Nelson MD [Primary Care Provider] - As soon as possible (Call the [facility] and thry will get you into see another provider there.) Activity Restrictions/Additional Instructions: Your labs, EKG and chest x-ray today were unremarkable. We do not have a specific cause for your shortness of breath. Call and follow-up with the [facility] and they will get you in to see another one of their physicians or physician assistants for further evaluation. Disposition Disposition: Home, Self Care
--- NOTE | 2022-11-21 15:28 | RAD_ITS ---
STUDY: X-RAY CHEST REASON FOR EXAM: Female, 82 years old. Chest pain. TECHNIQUE: Single frontal view of the chest. COMPARISON: Chest dated June 2022. FINDINGS: Cardiomegaly, sternotomy wires, dual lead cardiac pacer, aortic tortuosity with calcification, prominent central pulmonary arteries, mild diffuse interstitial prominence, right greater than left and blunting of the right costophrenic angle, all unchanged. No new or emergent finding. No abnormality of the visualized soft tissue structures of the upper abdomen. RAD/Chest 1 View (Portable) IMPRESSION: Stable chest with no acute or active cardiopulmonary disease. Electronically Signed: Brad Cerrato MD at 15:42 EDT ,
[2022-11-21 15:29] LABS: Anion Gap 4 (5-15); BUN 21 mg/dL (7-18); BUN/Creat Ratio 23.9 RATIO (10-20); Calcium,Total 9.5 mg/dL (8.5-10.1); Chloride 104 mmol/L (98-107); Creatinine, Serum 0.88 mg/dL (0.55-1.02); EST Glomerular Filtration Rate 65 mL/min (>60); Est Glom Filt Rate - Afr Amer 79 mL/min (>60); Glucose 105 mg/dL (74-106); Potassium 4.4 mmol/L (3.5-5.1); Sodium Level 137 mmol/L (136-145); Troponin-I HS (w/2H Reflex) 9 pg/mL (3.0-54.0)
[2022-11-21 16:53] VITALS: O2SAT 98
[2022-11-21 17:01] LABS: Reflex Troponin-HS? (from REC) Y
[2022-11-21 17:40] LABS: Troponin-I HS 10 pg/mL (3.0-54.0)
--- NOTE | 2022-11-21 18:32 | ED.RN ---
PATIENT CALLED OUT AND REQUESTED RN. THIS RN WENT TO ROOM AND PATIENT ANGRY STATING I WAS TOLD THIS WOULD TAKE 1 HOUR AND I HAVE BEEN HERE SINCE 215; ATTEMPTS TO EXPLAIN THE ACUITY AND INCREASED CENSUS OF THE DEPARTMENT AND THE TIME TESTS TAKE TO COMPLETE, PATIENT FOLLOWED UP WITH I NEED UNHOOKED FROM ALL OF THIS STUFF, I WILL NEVER COME TO AN ER AGAIN EVEN IF I AM DYING. AT TIME PATIENT WAS TAKING OFF MONITORING EQUIPMENT. THIS NURSE SPOKE WITH HER PRIMARY AND DR. SHAVER REGARDING THIS EVENT.
--- NOTE | 2022-11-21 18:39 | ED.RN ---
THIS NURSE DISCUSSED WITH PATIENT AFTER SPEAKING WITH PHYSICIAN AND PRIMARY, THAT DR. SHAVER WILL BE COMING TO GO OVER TEST RESULTS WITH HERE. SHE ASKS WELL HOW LONG UNTIL HE COMES, ALONG WITH DID HE TAKE A LUNCH TODAY, I FEEL LIKE SINCE I HAVE BEEN HERE I SHOULD KNOW IF HE TOOK A BREAK, SHE THEN ASKS WHAT TIME DOES HE GET OFF SHIFT. I AGAIN ACKNOWLEDGED PATIENT CONCERNS REGARDING TIME SPENT IN ED, EXPLAINED TO THE PATIENT THE INCREASED CENSUS AND THAT DR. SHAVER WOULD BE COMING BACK; HOWEVER I WOULD NOT DISCLOSE INFORMATION REGARDING HIS TIME.
== END 2022-11-21 18:46 | disposition home or self-care (01) ==
PROVIDERS: Emergency Provider Emergency Medicine; PCP Internal Medicine; Visit Provider Emergency Medicine
DX: R06.02 Shortness of breath (principal); J02.9 Acute pharyngitis, unspecified; I25.10 Atherosclerotic heart disease of native coronary artery without angina pectoris; I10 Essential (primary) hypertension; E78.00 Pure hypercholesterolemia, unspecified; Z87.09 Personal history of other diseases of the respiratory system
CPT/HCPCS: 36415; 71045; 80048; 83880; 84484; 85025; 93005; 99283

== ENCOUNTER 2023-05-27 16:26 | Emergency (ER) | payer MEDICARE, SELFPAY ==
[2023-05-27 16:27] VITALS: BP 149/53; PULSE 81; RESP 16; TEMP 36.6; O2SAT 96; BMI 26.6
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
[2023-05-27 17:17] LABS: Absolute Lymphocyte Count 2.16 X10^3/uL (0.83-4.51); Basophil# 0.02 X10^3/uL; Basophil% 0.2 % (0-1); Eosinophil# 0.05 X10^3/uL; Eosinophils% 0.5 % (0-5); Hematocrit 36.4 % (37-47); Hemoglobin 11.9 g/dL (12.0-15.0); Lymphocyte # 2.16 X10^3/ul (0.83-4.51); Lymphocyte % 19.9 % (19-41); Mean Corp Hgb Conc 32.7 g/dL (32-36); Mean Corpuscular Hgb 29.9 pg (27.0-32.0); Mean Corpuscular Volume 91.5 fL (81-99); Mean Platelet Vol. 10.1 fl (6.2-12.0); Monocyte# 0.56 X10^3/uL; Monocyte% 5.2 % (0-10); NRBC Flagged by Analyzer 0 % (0-5); Neutrophil # 7.99 X10^3/uL (2.7-7.7); Neutrophil % 73.5 % (47-70); Platelet Count 215 K/mm3 (150-450); RBC Distribution Width CV 14.2 % (11.6-14.6); Red Blood Count 3.98 M/mm3 (4.2-5.4); White Blood Count 10.9 K/mm3 (4.4-11.0)
[2023-05-27] MEDS: Morphine 4 MG/ML Syringe IV (17:34)
[2023-05-27] MEDS: Ondansetron 4 MG/2 ML Vial IV ×2 (17:35→20:14)
[2023-05-27 17:36] LABS: ALB/GLOB Ratio 0.9 RATIO (0.9-2.4); AST(SGOT) 43 U/L (15-37); Alanine Aminotransfer ALT/SGPT 37 U/L (13-56); Albumin, Serum 3.4 g/dL (3.2-5.0); Alkaline Phosphatase 91 U/L (45-117); Anion Gap 5 (5-15); BUN 30 mg/dL (7-18); BUN/Creat Ratio 33.4 RATIO (10-20); Calcium,Total 9.2 mg/dL (8.5-10.1); Chloride 100 mmol/L (98-107); EST Glomerular Filtration Rate 64 mL/min (>60); Est Glom Filt Rate - Afr Amer 77 mL/min (>60); Estimated Creatinine Clearance 44.76 ml/min; Globulin 3.9 g/dL (2.2-4.2); Glucose 162 mg/dL (74-106); Lipase 94 U/L (13-75); Potassium 4.2 mmol/L (3.5-5.1); Protein, Total 7.3 g/dL (6.4-8.2); Sodium Level 134 mmol/L (136-145); Troponin-I HS 45 pg/mL (3.0-54.0)
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
[2023-05-27 18:25] VITALS: BP 123/42; PULSE 62; RESP 16; O2SAT 98
[2023-05-27 18:58] LABS: Bacteria 0 SEEN /hpf (None Seen); Mucous, Urine 0 SEEN /hpf (<or=2+); Squamous Epithelial Cells - UA 0 SEEN /hpf (5-10)
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
[2023-05-27 19:04] LABS: Color, Urine Yellow (Yellow); Glucose, Dipstick Normal (Normal); Ketone-Dipstick Negative (Negative); Leukocyte Esterase-Dipstick 25 /ul (Negative); Nitrite-Dipstick Negative (Negative); Occult Blood-Urine 25 /ul (Negative); Protein-Dipstick 30 mg/dl (Negative); Specific Gravity, Urine 1.015 (1.002-1.030); Urine Bilirubin Dipstick Negative (Negative); Urine Clarity Clear (Clear); Urine Urobilinogen Normal (Normal)
[2023-05-27 19:12] LABS: Red Blood Cells-Urine 0-5 SEEN /hpf (0-5); White Blood Cells 0-5 SEEN /hpf (0-5)
[2023-05-27 20:00] VITALS: BP 123/37; PULSE 94; RESP 16; O2SAT 96
--- NOTE | 2023-05-27 20:11 | EKG12_ITS ---
Test Reason : DYSRHYTHMIA Blood Pressure : / mmHG Vent. Rate : 093 BPM Atrial Rate : 093 BPM P-R Int : 116 ms QRS Dur : 072 ms QT Int : 372 ms P-R-T Axes : 028 054 074 degrees QTc Int : 462 ms Normal sinus rhythm Nonspecific ST abnormality Abnormal ECG Confirmed by Kervin Soriano ([id number]), scientific editor SHERLEY RILEY ([id number]) on 05/29/2023 10:51:42 AM Referred By: Confirmed By:Kervin Soriano
[2023-05-27 20:46] VITALS: BP 109/40; PULSE 89; RESP 18; O2SAT 97
[2023-05-27] MEDS: 0.9% Normal Saline (1000mL) 1,000 ML 999 ML IV (21:00)
[2023-05-27 21:09] VITALS: BP 125/52; PULSE 92; RESP 16; TEMP 36.7; O2SAT 97
== END 2023-05-27 21:48 | disposition short-term general hospital (02) ==
LOC: ED 17:05
PROVIDERS: Emergency Provider Emergency Medicine; PCP Internal Medicine; Visit Provider Emergency Medicine
DX: S22.42XA Multiple fractures of ribs, left side, initial encounter for closed fracture (principal); I48.91 Unspecified atrial fibrillation; J90 Pleural effusion, not elsewhere classified; M25.571 Pain in right ankle and joints of right foot; S16.1XXA Strain of muscle, fascia and tendon at neck level, initial encounter; S20.20XA Contusion of thorax, unspecified, initial encounter; Z79.01 Long term (current) use of anticoagulants; S70.11XA Contusion of right thigh, initial encounter; I25.10 Atherosclerotic heart disease of native coronary artery without angina pectoris; K21.9 Gastro-esophageal reflux disease without esophagitis; I10 Essential (primary) hypertension; E78.00 Pure hypercholesterolemia, unspecified; Z79.899 Other long term (current) drug therapy; S60.222A Contusion of left hand, initial encounter; S80.211A Abrasion, right knee, initial encounter; S80.212A Abrasion, left knee, initial encounter; V44.5XXA Car driver injured in collision with heavy transport vehicle or bus in traffic accident, initial encounter
CPT/HCPCS: 70450; 71260; 72125; 73110; 73130; 73552; 73560; 73610; 74177; 80053; 81001; 83690; 84484; 85025; 93005; 96361; 96374; 96375; 96376; 99285; J7030; Q9967; A4216; J2405

== ENCOUNTER 2023-06-23 18:21 | Inpatient (IN) | payer MEDICARE, SELFPAY ==
[2023-06-23 18:08] VITALS: BP 130/49; PULSE 89; RESP 18; TEMP 37; O2SAT 97; BMI 25.7
[2023-06-23 18:21] VITALS: BMI 25.6
[2023-06-23 20:45] VITALS: PULSE 89; RESP 12; O2SAT 98
[2023-06-23] MEDS: Methenamine Hippurate 1 GM Tablet PO (21:39)
[2023-06-23] MEDS: traZODone 50 MG Tablet PO (21:40)
[2023-06-23] MEDS: Atenolol 50 MG Tablet PO (21:40)
[2023-06-23] MEDS: Atorvastatin Calcium 20 MG Tablet PO (21:40)
[2023-06-23] MEDS: APIXABAN 5 MG TABLET PO (21:40)
[2023-06-23 21:46] VITALS: BP 114/44; PULSE 86; RESP 18; TEMP 36.9; O2SAT 99
[2023-06-23 22:13] VITALS: RESP 12
--- NOTE | 2023-06-23 22:24 | CPS ---
Patient placed on sleep lab PAP machine with medium FFM. Autopap settings, Max pressure-18, min pressure 5 and 2L bleed.
[2023-06-24] VITALS (7 sets, daily range): BP systolic 117–124; BP diastolic 41–46; PULSE 72–82; RESP 12–18; TEMP 36.9; O2SAT 94–99
[2023-06-24] MEDS: Pantoprazole Sodium 40 MG Tablet PO (05:51)
[2023-06-24] MEDS: Levothyroxine 100 MCG Tablet PO (05:51)
[2023-06-24] MEDS: Ipratropium/Albuterol Sulfate 3 ML AMPUL.NEB INHALATION ×3 (06:48→19:39)
[2023-06-24] MEDS: APIXABAN 5 MG TABLET PO ×2 (08:28→20:43)
[2023-06-24] MEDS: Spironolactone 50 MG Tablet PO (08:28)
[2023-06-24] MEDS: Multivitamins,Ther W-Minerals Tablet 1 TABLET PO (08:28)
[2023-06-24] MEDS: Furosemide 20 MG Tablet PO (08:29)
[2023-06-24] MEDS: Methenamine Hippurate 1 GM Tablet PO ×2 (08:29→20:43)
[2023-06-24] MEDS: Lidocaine 5% Patch 1 PATCH TOPICAL (08:29)
[2023-06-24] MEDS: Atenolol 25 MG Tablet PO (08:31)
[2023-06-24] MEDS: Cholecalciferol (VIT D3) 25 MCG TABLET (1,000 UNITS) PO (08:32)
[2023-06-24 08:36] LABS: Hematocrit 30.3 % (37-47); Hemoglobin 9.2 g/dL (12.0-15.0); Mean Corp Hgb Conc 30.4 g/dL (32-36); Mean Corpuscular Hgb 32.4 pg (27.0-32.0); Mean Corpuscular Volume 106.7 fL (81-99); Mean Platelet Vol. 9.6 fl (6.2-12.0); POSITIVE MORPHOLOGY YES; Platelet Count 235 K/mm3 (150-450); RBC Distribution Width CV 23.6 % (11.6-14.6); RBC Distribution Width SD 87.3 fl (35.1-43.9); Red Blood Count 2.84 M/mm3 (4.2-5.4); White Blood Count 5.8 K/mm3 (4.4-11.0)
[2023-06-24 09:16] LABS: ALB/GLOB Ratio 0.8 RATIO (0.9-2.4); AST(SGOT) 19 U/L (15-37); Alanine Aminotransfer ALT/SGPT 27 U/L (13-56); Alkaline Phosphatase 122 U/L (45-117); Anion Gap 3 (5-15); BUN 26 mg/dL (7-18); BUN/Creat Ratio 43.8 RATIO (10-20); Calcium,Total 9.7 mg/dL (8.5-10.1); Chloride 102 mmol/L (98-107); Creatinine, Serum 0.59 mg/dL (0.55-1.02); EST Glomerular Filtration Rate 103 mL/min (>60); Est Glom Filt Rate - Afr Amer 124 mL/min (>60); Estimated Creatinine Clearance 49.62 ml/min; Globulin 3.8 g/dL (2.2-4.2); Glucose 109 mg/dL (74-106); Magnesium 2.5 mg/dL (1.6-2.6); Phosphorus 2.4 mg/dL (2.5-4.9); Potassium 4.4 mmol/L (3.5-5.1); Protein, Total 6.8 g/dL (6.4-8.2); Sodium Level 136 mmol/L (136-145)
[2023-06-24 09:28] LABS: Scan Indicated on CBC? Y/N YES- FLAGS NOTED
[2023-06-24 10:07] LABS: Differential Comment SCANNED
[2023-06-24] MEDS: Menthol/Lanolin/Calamine/Znox 113 GM Tube 1 APPLIC TOPICAL (20:34)
[2023-06-24] MEDS: Polyethylene Glycol 3350 17 GM PACKET PO (20:43)
[2023-06-24] MEDS: Atorvastatin Calcium 20 MG Tablet PO (20:43)
[2023-06-24] MEDS: traZODone 50 MG Tablet PO (20:43)
[2023-06-24] MEDS: Atenolol 50 MG Tablet PO (21:42)
[2023-06-25] VITALS (8 sets, daily range): BP systolic 118–119; BP diastolic 48–49; PULSE 76–81; RESP 16–18; TEMP 36.7–36.8; O2SAT 97–98
[2023-06-25] MEDS: Levothyroxine 100 MCG Tablet PO (05:14)
[2023-06-25] MEDS: Pantoprazole Sodium 40 MG Tablet PO (05:14)
[2023-06-25] MEDS: Menthol/Lanolin/Calamine/Znox 113 GM Tube 1 APPLIC TOPICAL ×2 (05:15→21:25)
[2023-06-25] MEDS: Ipratropium/Albuterol Sulfate 3 ML AMPUL.NEB INHALATION ×3 (07:22→21:23)
[2023-06-25] MEDS: Spironolactone 50 MG Tablet PO (08:26)
[2023-06-25] MEDS: APIXABAN 5 MG TABLET PO ×2 (08:26→21:23)
[2023-06-25] MEDS: Multivitamins,Ther W-Minerals Tablet 1 TABLET PO (08:26)
[2023-06-25] MEDS: Cholecalciferol (VIT D3) 25 MCG TABLET (1,000 UNITS) PO (08:27)
[2023-06-25] MEDS: Furosemide 20 MG Tablet PO (08:27)
[2023-06-25] MEDS: Methenamine Hippurate 1 GM Tablet PO ×2 (08:27→21:24)
[2023-06-25] MEDS: Atenolol 25 MG Tablet PO (08:27)
[2023-06-25] MEDS: Lidocaine 5% Patch 1 PATCH TOPICAL (08:28)
[2023-06-25] MEDS: Atorvastatin Calcium 20 MG Tablet PO (21:24)
[2023-06-25] MEDS: Atenolol 50 MG Tablet PO (21:24)
[2023-06-25] MEDS: traZODone 50 MG Tablet PO (21:24)
[2023-06-25] MEDS: Polyethylene Glycol 3350 17 GM PACKET PO (21:24)
--- NOTE | 2023-06-25 23:21 | CPS ---
[2308] Pt.'s BiPAP settings titrated to 14/7 at this time. Pt. not able to get comfortable with wearing BiPAP for second consecutive night. Pt. states 14/7 pressures are much more comfortable at this time. RN made aware of BiPAP changes.
[2023-06-26] VITALS (8 sets, daily range): BP systolic 106–129; BP diastolic 42; PULSE 76–81; RESP 15–26; TEMP 36.2–36.4; O2SAT 95–97
[2023-06-26] MEDS: Pantoprazole Sodium 40 MG Tablet PO (05:07)
[2023-06-26] MEDS: Levothyroxine 100 MCG Tablet PO (05:07)
[2023-06-26] MEDS: Menthol/Lanolin/Calamine/Znox 113 GM Tube 1 APPLIC TOPICAL ×2 (05:08→21:00)
[2023-06-26] MEDS: Ipratropium/Albuterol Sulfate 3 ML AMPUL.NEB INHALATION ×3 (07:03→23:05)
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
[2023-06-26] MEDS: APIXABAN 5 MG TABLET PO ×2 (09:13→21:00)
[2023-06-26] MEDS: Furosemide 20 MG Tablet PO (09:13)
[2023-06-26] MEDS: Spironolactone 50 MG Tablet PO (09:13)
[2023-06-26] MEDS: Cholecalciferol (VIT D3) 25 MCG TABLET (1,000 UNITS) PO (09:14)
[2023-06-26] MEDS: Multivitamins,Ther W-Minerals Tablet 1 TABLET PO (09:14)
[2023-06-26] MEDS: Methenamine Hippurate 1 GM Tablet PO ×2 (09:14→21:00)
[2023-06-26] MEDS: Lidocaine 5% Patch 1 PATCH TOPICAL (09:14)
[2023-06-26] MEDS: Atenolol 25 MG Tablet PO (09:14)
[2023-06-26] MEDS: traMADol 50 MG Tablet PO (20:56)
[2023-06-26] MEDS: Atenolol 50 MG Tablet PO (21:00)
[2023-06-26] MEDS: Zolpidem Tartrate 5 MG Tablet PO (21:00)
[2023-06-26] MEDS: Atorvastatin Calcium 20 MG Tablet PO (21:00)
[2023-06-26] MEDS: Polyethylene Glycol 3350 17 GM PACKET PO (21:01)
[2023-06-26] MEDS: Na Biphos/Potassium Phosphate PACKET 1 PACKET PO (22:44)
[2023-06-27] VITALS (9 sets, daily range): BP systolic 118–148; BP diastolic 44–53; PULSE 75–84; RESP 17–20; TEMP 36.4–36.5; O2SAT 96–99; BMI 25.9
--- NOTE | 2023-06-27 03:39 | CPS ---
[0331] Pt. awake and asked if she could remove BiPAP for the time being. Pt. states she slept well, and she needs help with toileting. Pt. agreeable to wear 2L NC for comfort at this time; pt. may end up going back to sleep before morning/breakfast time.
[2023-06-27] MEDS: Menthol/Lanolin/Calamine/Znox 113 GM Tube 1 APPLIC TOPICAL ×2 (05:47→22:25)
[2023-06-27] MEDS: Pantoprazole Sodium 40 MG Tablet PO (05:48)
[2023-06-27] MEDS: Levothyroxine 100 MCG Tablet PO (05:48)
[2023-06-27] MEDS: Na Biphos/Potassium Phosphate PACKET 1 PACKET PO ×3 (05:48→21:55)
[2023-06-27] MEDS: Acetaminophen 500 MG Tablet 1000 MG PO (06:18)
[2023-06-27] MEDS: Furosemide 20 MG Tablet PO (08:15)
[2023-06-27] MEDS: Methenamine Hippurate 1 GM Tablet PO ×2 (08:16→21:56)
[2023-06-27] MEDS: Spironolactone 50 MG Tablet PO (08:16)
[2023-06-27] MEDS: Cholecalciferol (VIT D3) 25 MCG TABLET (1,000 UNITS) PO (08:16)
[2023-06-27] MEDS: APIXABAN 5 MG TABLET PO ×2 (08:16→21:56)
[2023-06-27] MEDS: Multivitamins,Ther W-Minerals Tablet 1 TABLET PO (08:16)
[2023-06-27] MEDS: Atenolol 25 MG Tablet PO (08:16)
[2023-06-27] MEDS: Lidocaine 5% Patch 1 PATCH TOPICAL (08:17)
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
--- NOTE | 2023-06-27 11:33 | VDLE_ITS ---
Reason For Study: pain and swelling RIGHT LEFT CFV is compressible, spontaneous, competent CFV is compressible, spontaneous, competent, and demonstrates pulsatile venous flow. and demonstrates pulsatile venous flow. FV is compressible, spontaneous, competent and demonstrates pulsatile venous flow. POP V is compressible, spontaneous, competent and demonstrates pulsatile venous flow. T/P Trunk is compressible. PTV is compressible. RT PerV is compressible. GSV is normal. Heterogeneous area in the mid thigh. Area is nonvascular. Area is too large to measure. Procedure This is a venous duplex using B-mode, color flow and spectral Doppler. Exam performed portable in patient room. The exam was diagnostic. A preliminary report was called and/or faxed to the pt's nurse. VL/Venous Duplex US, Unilateral Interpretation Summary Deep veins of the right lower extremity are patent and compressible segmentally . There is no evidence of right lower extremity deep vein thrombosis. The right great sapheno us vein appears patent and compressible segmentally. Heterogeneous non-vascular structure in the mid thigh. Ordering Physician: Dalila Lou Referring Physician: Dalila Lou Performed By: Ernie Ma RVT
--- NOTE | 2023-06-27 14:45 | RAD_ITS ---
STUDY: X-RAY CHEST REASON FOR EXAM: Female, 82 years old. Dyspnea TECHNIQUE: PA and lateral views of the chest. COMPARISON: None. FINDINGS: Left subclavian pacemaker. Status post median sternotomy. The lungs are clear and expanded. Small bilateral pleural effusions with bibasilar atelectasis. There is moderate cardiac enlargement. Normal mediastinum and ting. There is prominence of the pulmonary hilar arteries and peripheral pulmonary arteries, consistent with congestive heart failure (CHF). Normal visualized aortic arch and descending thoracic aorta. Normal visualized thoracic spine. Normal visualized ribs, clavicles, and shoulders. There is no demonstrated abnormality of the visualized soft tissue structures of the upper abdomen. RAD/Chest PA and Lateral IMPRESSION: Mild congestive heart failure with small bilateral pleural effusions. Electronically Signed: Bhavin Cabrera MD at 19:48 EDT ,
[2023-06-27] MEDS: Ipratropium/Albuterol Sulfate 3 ML AMPUL.NEB INHALATION (15:41)
[2023-06-27] MEDS: Bumetanide 2 MG Tablet PO (15:58)
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
[2023-06-27 17:08] LABS: Bacteria 0 SEEN /hpf (None Seen); Mucous, Urine 0 SEEN /hpf (<or=2+); Red Blood Cells-Urine 0 SEEN /hpf (0-5)
[2023-06-27 17:46] LABS: Color, Urine Yellow (Yellow); Glucose, Dipstick Normal (Normal); Ketone-Dipstick Negative (Negative); Leukocyte Esterase-Dipstick Negative /ul (Negative); Nitrite-Dipstick Negative (Negative); Occult Blood-Urine Negative /ul (Negative); Protein-Dipstick Negative (Negative); Urine Bilirubin Dipstick Negative (Negative); Urine Clarity Clear (Clear); Urine Urobilinogen Normal (Normal)
[2023-06-27 18:10] LABS: Squamous Epithelial Cells - UA 5-10 SEEN /hpf (5-10); Transitional Epithelial - Ur 0-5 SEEN /hpf (0-5); White Blood Cells 0-5 SEEN /hpf (0-5)
[2023-06-27] MEDS: Polyethylene Glycol 3350 17 GM PACKET PO (21:55)
[2023-06-27] MEDS: Atorvastatin Calcium 20 MG Tablet PO (21:56)
[2023-06-27] MEDS: Atenolol 50 MG Tablet PO (21:57)
[2023-06-28] VITALS (7 sets, daily range): BP systolic 112–113; BP diastolic 40–50; PULSE 71–85; RESP 16–24; TEMP 36.3–36.8; O2SAT 96–99; BMI 25.6
[2023-06-28] MEDS: Pantoprazole Sodium 40 MG Tablet PO (05:21)
[2023-06-28] MEDS: Na Biphos/Potassium Phosphate PACKET 1 PACKET PO ×3 (05:21→20:53)
[2023-06-28] MEDS: Levothyroxine 100 MCG Tablet PO (05:21)
[2023-06-28] MEDS: Menthol/Lanolin/Calamine/Znox 113 GM Tube 1 APPLIC TOPICAL ×2 (05:50→20:57)
[2023-06-28 05:51] LABS: Hematocrit 32.2 % (37-47); Hemoglobin 9.8 g/dL (12.0-15.0); Mean Corp Hgb Conc 30.4 g/dL (32-36); Mean Corpuscular Hgb 31.8 pg (27.0-32.0); Mean Corpuscular Volume 104.5 fL (81-99); Mean Platelet Vol. 9.3 fl (6.2-12.0); POSITIVE MORPHOLOGY YES; Platelet Count 221 K/mm3 (150-450); Red Blood Count 3.08 M/mm3 (4.2-5.4); White Blood Count 6.1 K/mm3 (4.4-11.0)
[2023-06-28 06:17] LABS: Anion Gap 4 (5-15); BUN 24 mg/dL (7-18); BUN/Creat Ratio 35.5 RATIO (10-20); Calcium,Total 9.1 mg/dL (8.5-10.1); Chloride 97 mmol/L (98-107); Creatinine, Serum 0.68 mg/dL (0.55-1.02); EST Glomerular Filtration Rate 88 mL/min (>60); Est Glom Filt Rate - Afr Amer 107 mL/min (>60); Glucose 114 mg/dL (74-106); Phosphorus 3.8 mg/dL (2.5-4.9); Potassium 4.3 mmol/L (3.5-5.1); Sodium Level 136 mmol/L (136-145)
[2023-06-28 07:15] LABS: Scan Indicated on CBC? Y/N YES- FLAGS NOTED
[2023-06-28 08:13] LABS: BNP,B-Type NATRIURETIC PEPTIDE 324.4 pg/mL (0-100)
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
[2023-06-28 08:40] LABS: Hemoglobin A1c 4.7 % (3.8-5.6)
[2023-06-28] MEDS: Methenamine Hippurate 1 GM Tablet PO ×2 (09:39→20:54)
[2023-06-28] MEDS: APIXABAN 5 MG TABLET PO ×2 (09:39→20:54)
[2023-06-28] MEDS: Lidocaine 5% Patch 1 PATCH TOPICAL (09:39)
[2023-06-28] MEDS: Cholecalciferol (VIT D3) 25 MCG TABLET (1,000 UNITS) PO (09:39)
[2023-06-28] MEDS: Multivitamins,Ther W-Minerals Tablet 1 TABLET PO (09:39)
[2023-06-28] MEDS: Atenolol 25 MG Tablet PO (09:40)
[2023-06-28 10:01] LABS: Allen Test Positive; Base Excess 7 mmol/L (-2 to +2); Bicarbonate 32.1 mmol/L (22-26); Blood Gas Specimen Type ART; Mode Not entered; O2 Delivery Device Cannula; PO2 104 mmHG (75-100); SITE R Radial; SO2 98 % (95-99); Total Carbon Dioxide 34 mmol/L; pCO2 50.9 mmHg (35-45); pH 7.41 (7.35-7.45)
[2023-06-28] MEDS: Spironolactone 50 MG Tablet PO (10:51)
[2023-06-28] MEDS: Ipratropium/Albuterol Sulfate 3 ML AMPUL.NEB INHALATION ×3 (15:18→23:32)
[2023-06-28] MEDS: Polyethylene Glycol 3350 17 GM PACKET PO (20:53)
[2023-06-28] MEDS: Atenolol 50 MG Tablet PO (20:54)
[2023-06-28] MEDS: Atorvastatin Calcium 20 MG Tablet PO (20:54)
[2023-06-28] MEDS: Zolpidem Tartrate 5 MG Tablet PO (21:13)
[2023-06-29 06:00] VITALS: BMI 25.9
[2023-06-29] MEDS: Na Biphos/Potassium Phosphate PACKET 1 PACKET PO ×2 (06:10→14:36)
[2023-06-29] MEDS: Pantoprazole Sodium 40 MG Tablet PO (06:10)
[2023-06-29] MEDS: Levothyroxine 100 MCG Tablet PO (06:10)
[2023-06-29] MEDS: Menthol/Lanolin/Calamine/Znox 113 GM Tube 1 APPLIC TOPICAL ×2 (06:11→21:44)
[2023-06-29 07:00] VITALS: PULSE 81; RESP 17
[2023-06-29 07:13] VITALS: O2SAT 98
[2023-06-29] MEDS: Ipratropium/Albuterol Sulfate 3 ML AMPUL.NEB INHALATION ×3 (07:15→22:22)
[2023-06-29] MEDS: Lidocaine 5% Patch 1 PATCH TOPICAL (08:17)
[2023-06-29] MEDS: Spironolactone 50 MG Tablet PO (08:18)
[2023-06-29] MEDS: Multivitamins,Ther W-Minerals Tablet 1 TABLET PO (08:19)
[2023-06-29] MEDS: Atenolol 25 MG Tablet PO (08:19)
[2023-06-29] MEDS: APIXABAN 5 MG TABLET PO ×2 (08:19→21:29)
[2023-06-29] MEDS: Methenamine Hippurate 1 GM Tablet PO ×2 (08:19→21:29)
[2023-06-29] MEDS: Cholecalciferol (VIT D3) 25 MCG TABLET (1,000 UNITS) PO (08:19)
[2023-06-29 09:04] VITALS: BP 114/45; PULSE 77; RESP 19; TEMP 36.1; O2SAT 98
[2023-06-29 10:00] VITALS: O2SAT 98
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
--- NOTE | 2023-06-29 12:54 | CASEMGMT ---
Social Work IDT met with patient and daughter, Param at bedside. Son, Donald on the phone to attend care plan meeting. Discussed patient progress with therapy (PT/OT/ST) and nursing support. Patient continues to require assistance with therapy(OT) for max A for clothing/hygiene; shower transfer mod A. OT recommends hip kit for mobility. Patient progress with therapy min A for bed mobility; ambulating 40ft [address]. ST patient remains minced; bite sized diet; diet is being monitored for advancements. B-Cat (); self correction when prompted for cognition. SW educated patient and daughter [employer] Insurance coverage and next review date 07/04. Patient has concerns for insurance. Patient and family was notified that continued stay is not guaranteed pending insurance review. Patient reports that goal is to return home with home health care services. Physician is recommending continued rehab. SW will continue to monitor to provide assistance with discharge planning. LAUREL Baez
[2023-06-29 20:00] VITALS: BP 116/44; PULSE 82; RESP 16; TEMP 36.8; O2SAT 96
[2023-06-29] MEDS: Atorvastatin Calcium 20 MG Tablet PO (21:28)
[2023-06-29] MEDS: Atenolol 50 MG Tablet PO (21:28)
[2023-06-29 22:22] VITALS: PULSE 88; RESP 18; O2SAT 99
[2023-06-29] MEDS: Zolpidem Tartrate 5 MG Tablet 2.5 MG PO (22:31)
[2023-06-30 06:00] VITALS: BMI 26.0
[2023-06-30] MEDS: Pantoprazole Sodium 40 MG Tablet PO (06:15)
[2023-06-30] MEDS: Levothyroxine 100 MCG Tablet PO (06:15)
[2023-06-30] MEDS: Menthol/Lanolin/Calamine/Znox 113 GM Tube 1 APPLIC TOPICAL ×2 (06:19→22:29)
[2023-06-30] MEDS: Ipratropium/Albuterol Sulfate 3 ML AMPUL.NEB INHALATION ×3 (07:25→15:54)
[2023-06-30 07:35] VITALS: PULSE 84; RESP 20
[2023-06-30 07:42] VITALS: BP 117/40; PULSE 74; RESP 17; TEMP 36.2; O2SAT 98
[2023-06-30 08:08] VITALS: O2SAT 98
[2023-06-30] MEDS: Lidocaine 5% Patch 1 PATCH TOPICAL (08:34)
[2023-06-30] MEDS: Spironolactone 50 MG Tablet PO (08:34)
[2023-06-30] MEDS: Methenamine Hippurate 1 GM Tablet PO ×2 (08:35→22:24)
[2023-06-30] MEDS: Cholecalciferol (VIT D3) 25 MCG TABLET (1,000 UNITS) PO (08:35)
[2023-06-30] MEDS: Atenolol 25 MG Tablet PO (08:35)
[2023-06-30] MEDS: Multivitamins,Ther W-Minerals Tablet 1 TABLET PO (08:35)
[2023-06-30] MEDS: APIXABAN 5 MG TABLET PO ×2 (08:35→22:24)
[2023-06-30 09:03] LABS: Hematocrit 32.3 % (37-47)
[2023-06-30 09:20] LABS: Anion Gap 3 (5-15); BUN 18 mg/dL (7-18); BUN/Creat Ratio 29.1 RATIO (10-20); Chloride 98 mmol/L (98-107); Creatinine, Serum 0.62 mg/dL (0.55-1.02); EST Glomerular Filtration Rate 98 mL/min (>60); Est Glom Filt Rate - Afr Amer 118 mL/min (>60); Estimated Creatinine Clearance 49.99 ml/min; Glucose 161 mg/dL (74-106); Sodium Level 136 mmol/L (136-145)
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
[2023-06-30 15:53] VITALS: PULSE 88; RESP 21
[2023-06-30 20:00] VITALS: BP 140/47; PULSE 80; RESP 18; TEMP 37; O2SAT 99
[2023-06-30] MEDS: Atenolol 50 MG Tablet PO (22:24)
[2023-06-30] MEDS: Atorvastatin Calcium 20 MG Tablet PO (22:24)
[2023-06-30] MEDS: Zolpidem Tartrate 5 MG Tablet 2.5 MG PO (22:28)
[2023-07-01] MEDS: Menthol/Lanolin/Calamine/Znox 113 GM Tube 1 APPLIC TOPICAL ×2 (06:54→21:07)
[2023-07-01] MEDS: Levothyroxine 100 MCG Tablet PO (06:54)
[2023-07-01] MEDS: Pantoprazole Sodium 40 MG Tablet PO (06:54)
[2023-07-01] MEDS: Acetaminophen 500 MG Tablet 1000 MG PO (07:02)
[2023-07-01 08:00] VITALS: BMI 25.9
[2023-07-01] MEDS: Lidocaine 5% Patch 1 PATCH TOPICAL (09:10)
[2023-07-01] MEDS: APIXABAN 5 MG TABLET PO ×2 (09:14→21:07)
[2023-07-01] MEDS: Multivitamins,Ther W-Minerals Tablet 1 TABLET PO (09:14)
[2023-07-01] MEDS: Spironolactone 50 MG Tablet PO (09:15)
[2023-07-01] MEDS: Cholecalciferol (VIT D3) 25 MCG TABLET (1,000 UNITS) PO (09:15)
[2023-07-01] MEDS: Methenamine Hippurate 1 GM Tablet PO ×2 (09:19→21:07)
[2023-07-01] MEDS: Atenolol 25 MG Tablet PO (09:20)
[2023-07-01 10:00] VITALS: BP 166/57; PULSE 75; RESP 20; TEMP 37.1; O2SAT 100
[2023-07-01 12:31] VITALS: PULSE 76; RESP 16
[2023-07-01 19:21] VITALS: BP 130/52; PULSE 81; RESP 20; TEMP 36.7; O2SAT 100
[2023-07-01] MEDS: Ipratropium/Albuterol Sulfate 3 ML AMPUL.NEB INHALATION (20:47)
[2023-07-01 20:49] VITALS: PULSE 80; RESP 16
[2023-07-01] MEDS: Atenolol 50 MG Tablet PO (21:06)
[2023-07-01] MEDS: Atorvastatin Calcium 20 MG Tablet PO (21:07)
[2023-07-01] MEDS: Zolpidem Tartrate 5 MG Tablet 2.5 MG PO (21:07)
[2023-07-01 22:00] VITALS: PULSE 72; RESP 20
[2023-07-02] MEDS: Acetaminophen 500 MG Tablet 1000 MG PO ×2 (02:05→21:35)
[2023-07-02 04:05] VITALS: PULSE 72; RESP 32
[2023-07-02] MEDS: Ipratropium/Albuterol Sulfate 3 ML AMPUL.NEB INHALATION ×3 (04:05→20:00)
[2023-07-02] MEDS: Levothyroxine 100 MCG Tablet PO (05:48)
[2023-07-02] MEDS: Pantoprazole Sodium 40 MG Tablet PO (05:48)
[2023-07-02] MEDS: Menthol/Lanolin/Calamine/Znox 113 GM Tube 1 APPLIC TOPICAL ×2 (05:49→21:26)
[2023-07-02 06:00] VITALS: BMI 26.1
[2023-07-02 08:00] VITALS: BP 125/46; PULSE 70; RESP 20; TEMP 36.6; O2SAT 100
[2023-07-02] MEDS: Lidocaine 5% Patch 1 PATCH TOPICAL (08:07)
[2023-07-02] MEDS: Multivitamins,Ther W-Minerals Tablet 1 TABLET PO (08:08)
[2023-07-02] MEDS: Spironolactone 50 MG Tablet PO (08:08)
[2023-07-02] MEDS: Polyethylene Glycol 3350 17 GM PACKET PO ×2 (08:09→21:26)
[2023-07-02] MEDS: APIXABAN 5 MG TABLET PO ×2 (08:09→21:26)
[2023-07-02] MEDS: Methenamine Hippurate 1 GM Tablet PO ×2 (08:10→21:26)
[2023-07-02] MEDS: Cholecalciferol (VIT D3) 25 MCG TABLET (1,000 UNITS) PO (08:10)
[2023-07-02] MEDS: Atenolol 25 MG Tablet PO (08:11)
[2023-07-02] MEDS: busPIRone 5 MG Tablet PO ×2 (10:54→21:26)
--- NOTE | 2023-07-02 10:59 | NURSING ---
Patient c/o burning with urination this morning and new order per Dr. Lou for UA C&S to be sent. Patient reported at times she gets SOB and oxygen sats are stable above 90% with 2 L oxygen. Patient is anxious and requires some 1:1. At times, patient is visibly SOB with exertion. Lungs are diminished with poor air exchange per her baseline since admission and IS is encouraged. New order for Buspar and patient agreed to take it. Labs ordered for the AM.
[2023-07-02 11:04] LABS: Color, Urine Yellow (Yellow); Glucose, Dipstick Normal (Normal); Ketone-Dipstick Negative (Negative); Leukocyte Esterase-Dipstick 25 /ul (Negative); Nitrite-Dipstick Negative (Negative); Occult Blood-Urine 10 /ul (Negative); Protein-Dipstick 30 mg/dl (Negative); Specific Gravity, Urine 1.015 (1.002-1.030); Urine Bilirubin Dipstick Negative (Negative); Urine Clarity Sl. Cloudy (Clear); Urine Urobilinogen Normal (Normal)
[2023-07-02 11:26] LABS: Bacteria 1+ /hpf (None Seen); Mucous, Urine 1+ /hpf (<or=2+); Red Blood Cells-Urine 0-5 SEEN /hpf (0-5); Squamous Epithelial Cells - UA 0-5 SEEN /hpf (5-10); White Blood Cells 0-5 SEEN /hpf (0-5)
[2023-07-02 13:48] VITALS: PULSE 83; RESP 16
[2023-07-02 20:00] VITALS: PULSE 80; RESP 32; O2SAT 98
[2023-07-02 21:20] VITALS: PULSE 76; RESP 22
[2023-07-02] MEDS: Atenolol 50 MG Tablet PO (21:25)
[2023-07-02] MEDS: Atorvastatin Calcium 20 MG Tablet PO (21:26)
[2023-07-02] MEDS: Zolpidem Tartrate 5 MG Tablet 2.5 MG PO (21:31)
[2023-07-02 21:42] VITALS: BP 122/48; PULSE 76; RESP 22; TEMP 37; O2SAT 98
[2023-07-03 06:00] VITALS: BP 153/55; PULSE 82; RESP 34; TEMP 37; O2SAT 99
[2023-07-03] MEDS: Menthol/Lanolin/Calamine/Znox 113 GM Tube 1 APPLIC TOPICAL (06:04)
[2023-07-03] MEDS: Levothyroxine 100 MCG Tablet PO (06:04)
[2023-07-03 06:10] VITALS: PULSE 80; RESP 12; RESP 28; O2SAT 99
--- NOTE | 2023-07-03 06:27 | RAD_ITS ---
INDICATION: possible pulminary edema EXAMINATION/TECHNIQUE: X-RAY - XR Chest 2 Views COMPARISON: 06/27/2023 FINDINGS: LINES/DEVICES: Pacemaker leads unchanged. LUNGS: Opacities at the lung bases combination of moderate pleural effusions and airspace disease, increased compared to prior. No pneumothorax. MEDIASTINUM: Unremarkable. CARDIAC SILHOUETTE: Partially obscured. Stable size. Sternal wires. BONES AND SOFT TISSUES: No acute abnormalities. RAD/Chest PA and Lateral IMPRESSION: Increased bilateral pleural effusions and bibasilar atelectasis and/or pneumonia. Electronically Signed: Mary Tony MD at 7:52 EDT ,
--- NOTE | 2023-07-03 06:35 | NURSING ---
RT called for breathing tx for pt. Pt observed with shallow breathing. RT reports concern for pt breathing pattern and added BIPAP to pt for improved breathing. RT alerted RN to request chest XRAY for possible pulmonary edema. RR= 34. BP- 153/55, T- 98.6, P-86, 99% on BIPAP. Hospitalist called and alerted to pt needs. STAT chest XRAY ordered. Labs for CBC, CMP, MG, & Phos were ordered STAT. ABG ordered. Solumedrol 125mg IV ordered now and Solumedrol 60mg ordered BID. RT reports improvement with pt at this time.
[2023-07-03 06:36] LABS: Allen Test Positive; Base Excess 8 mmol/L (-2 to +2); Bicarbonate 35.5 mmol/L (22-26); Blood Gas Specimen Type ART; Mode BiLevel; O2 Delivery Device BiPAP; PEEP 16; PO2 139 mmHG (75-100); RR 12; SITE L Radial; SO2 98 % (95-99); Total Carbon Dioxide 38 mmol/L; pCO2 85.9 mmHg (35-45); pH 7.23 (7.35-7.45)
[2023-07-03 06:52] LABS: Absolute Lymphocyte Count 0.83 X10^3/uL (0.83-4.51); Basophil# 0.01 X10^3/uL; Basophil% 0.1 % (0-1); Hematocrit 36.4 % (37-47); Lymphocyte # 0.83 X10^3/ul (0.83-4.51); Lymphocyte % 8.2 % (19-41); Mean Corp Hgb Conc 30.2 g/dL (32-36); Mean Corpuscular Hgb 32.7 pg (27.0-32.0); Mean Corpuscular Volume 108.3 fL (81-99); Mean Platelet Vol. 9.6 fl (6.2-12.0); Monocyte# 0.23 X10^3/uL; Monocyte% 2.3 % (0-10); NRBC Flagged by Analyzer 0 % (0-5); Neutrophil # 9.01 X10^3/uL (2.7-7.7); Neutrophil % 88.8 % (47-70); POSITIVE MORPHOLOGY YES; Platelet Count 214 K/mm3 (150-450); RBC Distribution Width CV 20.3 % (11.6-14.6); RBC Distribution Width SD 80.7 fl (35.1-43.9); Red Blood Count 3.36 M/mm3 (4.2-5.4); White Blood Count 10.1 K/mm3 (4.4-11.0)
[2023-07-03 07:00] LABS: Differential Indicated SCAN CRITERIA MET
[2023-07-03 07:13] LABS: Anion Gap 2 (5-15); BUN 31 mg/dL (7-18); BUN/Creat Ratio 44.2 RATIO (10-20); Calcium,Total 9.8 mg/dL (8.5-10.1); Chloride 99 mmol/L (98-107); EST Glomerular Filtration Rate 84 mL/min (>60); Est Glom Filt Rate - Afr Amer 102 mL/min (>60); Estimated Creatinine Clearance 50.03 ml/min; Glucose 144 mg/dL (74-106); Potassium 5.5 mmol/L (3.5-5.1); Sodium Level 133 mmol/L (136-145)
[2023-07-03 07:25] VITALS: PULSE 88; RESP 22
[2023-07-03] MEDS: Ipratropium/Albuterol Sulfate 3 ML AMPUL.NEB INHALATION (07:25)
[2023-07-03 07:30] LABS: Troponin-I HS 12 pg/mL (3.0-54.0)
[2023-07-03 07:45] LABS: AST(SGOT) 19 U/L (15-37); Alanine Aminotransfer ALT/SGPT 21 U/L (13-56); Albumin, Serum 3.2 g/dL (3.2-5.0); Alkaline Phosphatase 122 U/L (45-117); Bilirubin, Direct 0.26 mg/dL (0.00-0.30); Globulin 4.4 g/dL (2.2-4.2); Magnesium 2.8 mg/dL (1.6-2.6); Phosphorus 3.2 mg/dL (2.5-4.9); Protein, Total 7.6 g/dL (6.4-8.2)
[2023-07-03] MEDS: MethylPREDNISolone 125 MG/2 ML Vial IV (07:45)
[2023-07-03 07:46] VITALS: PULSE 87; RESP 24
[2023-07-03] MEDS: [UNRECOGNIZED DRUG - REMARK] IV (07:55)
[2023-07-03 08:10] LABS: Anisocytosis 1+
--- NOTE | 2023-07-03 08:13 | NURSING ---
Dr Warren administered Mag IV push
== END 2023-07-03 08:08 | disposition short-term general hospital (02) | DRG 559 ==
PROVIDERS: Internal Medicine; Admitting Provider Internal Medicine; PCP Internal Medicine; Referring Provider Internal Medicine; Visit Provider Internal Medicine
DX: S22.42XD Multiple fractures of ribs, left side, subsequent encounter for fracture with routine healing (principal); J96.01 Acute respiratory failure with hypoxia; I50.33 Acute on chronic diastolic (congestive) heart failure; J96.02 Acute respiratory failure with hypercapnia; D62 Acute posthemorrhagic anemia; I48.20 Chronic atrial fibrillation, unspecified; I27.20 Pulmonary hypertension, unspecified; I11.0 Hypertensive heart disease with heart failure; E03.9 Hypothyroidism, unspecified; I35.1 Nonrheumatic aortic (valve) insufficiency; I25.10 Atherosclerotic heart disease of native coronary artery without angina pectoris; E78.00 Pure hypercholesterolemia, unspecified; M41.9 Scoliosis, unspecified; K29.60 Other gastritis without bleeding; K21.9 Gastro-esophageal reflux disease without esophagitis; T82.9XXD Unspecified complication of cardiac and vascular prosthetic device, implant and graft, subsequent encounter; S12.600D Unspecified displaced fracture of seventh cervical vertebra, subsequent encounter for fracture with routine healing; S22.20XD Unspecified fracture of sternum, subsequent encounter for fracture with routine healing; Z79.01 Long term (current) use of anticoagulants; I49.3 Ventricular premature depolarization; Z79.899 Other long term (current) drug therapy; Z79.890 Hormone replacement therapy; V99.XXXD Unspecified transport accident, subsequent encounter; S80.01XD Contusion of right knee, subsequent encounter
CPT/HCPCS: 36415; 36600; 71046; 80048; 80053; 80076; 81001; 82803; 83036; 83735; 83880; 84100; 84484; 85014; 85018; 85025; 85027; 87077; 87086; 87088; 87186; 92507; 92526; 92610; 93005; 93971; 94002; 94003; 94640; 94660; 94668; 94762; 96125; 97110; 97116; 97129; 97130; 97163; 97166; 97530; 97535; 97802; 99252; G0463; J3475; J3490

== ENCOUNTER 2023-07-03 08:33 | Inpatient (IN) | payer MEDICARE, SELFPAY ==
[2023-07-03] VITALS (22 sets, daily range): BP systolic 95–143; BP diastolic 41–70; PULSE 74–91; RESP 11–31; TEMP 36.1–36.6; O2SAT 93–100; BMI 27.4
--- NOTE | 2023-07-03 08:28 | NURSING ---
Notified [place]o RN in ICU that patient received Magnesium shortly before transfer to ICU. Notified [place]o RN of most recent Magnesium level prior to transfer being 2.8. Reno stated that Dr Perez is still present on the nursing unit and will notify him of the magnesium lab value in relation to the recent administration of magnesium and will continue to monitor.
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
[2023-07-03] MEDS: 0.9% Saline Lock 10 ML Syringe IV ×2 (08:49→17:33)
[2023-07-03] MEDS: Furosemide 40 MG/4 ML Vial IV ×2 (08:49→17:33)
--- NOTE | 2023-07-03 08:49 | ECHOD_ITS ---
Reason For Study: Dyspnea/SOB Procedure This was a 2D Doppler, Color Flow transthoracic echocardiogram. Technically difficult study due to patient condition and breast reconstruction. Limited views were obtained. Two Techs attempted. Exam performed portable in ICU/CCU. Left Ventricle Normal LV size. Mild assymetric septal hypertrophy. The estimated ejection fraction is 65-70 %. Stage 2 diastolic dysfunction. No regional wall motion abnormalities noted. Right Ventricle ICD or pacer leads identified within the right ventricle. Normal RV size. Normal systolic function. Atria The left atrium is severely enlarged. ICD or pacer leads identified within the right atrium. The right atrium is not well visualized. Mitral Valve Severe mitral annular calcification. Moderate diffuse mitral valve thickening. Mean transmitral valve gradient 5.7 mmHg. Mild-Moderate mitral valve stenosis. Mild (1+) mitral valve insufficiency. Tricuspid Valve Normal tricuspid valve. Moderate (2+) tricuspid valve insufficiency. Right ventricular systolic pressure estimated to be 62 mmHg. Aortic Valve Mild diffuse aortic valve thickening. Peak aortic valve gradient 19 mmHg. Mean aortic valve gradient 9 mmHg. Mild-Moderate (1-2+) eccentric aortic valve insufficiency. Stable appearing bioprosthetic aortic valve apparatus. Pulmonic Valve Normal pulmonic valve. Mild (1+) pulmonic valve insufficiency. Great Vessels Mildly dilated aortic root. Pericardium/Pleural No pericardial effusion. MMode/2D Measurements & Calculations LVIDd: 3.8 cm IVSd: 1.2 cm LVOT diam: 1.9 cm LVIDs: 2.1 cm LVPWd: 0.90 cm LVOT area: 2.7 cm2 FS: 44.5 % Ao root diam: 4.0 cm LA dimension: 4.6 cm Time Measurements MV dec time: 0.28 sec Doppler Measurements & Calculations MV E max lencho: 166.9 cm/sec Lat Peak E' Lencho: 8.2 cm/sec Med Peak E' Lencho: 4.0 cm/sec MV A max lencho: 92.1 cm/sec E/E' lat: 20.4 E/E' med: 42.1 MV E/A: 1.8 MV V2 max: 223.5 cm/sec MV P1/2t max lencho: 225.7 cm/sec Ao V2 max: 216.6 cm/sec MV max P.2 mmHg MV P1/2t: 80.8 msec Ao max P.0 mmHg MV V2 mean: 105.6 cm/sec Ao V2 mean: 132.5 cm/sec MV mean P.7 mmHg MV dec slope: 818.7 cm/sec2 Ao mean P.5 mmHg MV V2 VTI: 54.4 cm MVA(P1/2t): 2.7 cm2 Ao V2 VTI: 46.0 cm AV (velocity ratio): 0.59 MVA(VTI): 1.4 cm2 SOLOMON(I,D): 1.6 cm2 SOLOMON(V,D): 1.5 cm2 LV V1 max: 116.4 cm/sec SV(LVOT): 73.9 ml PA V2 max: 86.4 cm/sec LV V1 max P.4 mmHg PA V2 mean: 62.0 cm/sec LV V1 mean P.8 mmHg LV V1 mean: 78.1 cm/sec LV V1 VTI: 27.2 cm PI dec slope: 567.7 cm/sec2 TR max lencho: 344.9 cm/sec TR max P.6 mmHg ECHO/Echo Complete Interpretation Summary The estimated ejection fraction is 65-70 %. Stage 2 diastolic dysfunction. The left atrium is markedly enlarged. Mild toMild (1+) mitral valve insufficiency. Moderate ricuspid valve insufficiency. Pulmonary artery systolic pressure estim ated at 62 mmHg. Stable appearing bioprosthetic aortic valve apparatus. Mild to moderate eccentric aortic valve insufficiency. Mildly dilated aortic root. Ordering Physician: Jim Urban Performed By: Erasmo Sánchez RCS
[2023-07-03 09:17] LABS: Allen Test Positive; Base Excess 9 mmol/L (-2 to +2); Bicarbonate 34.7 mmol/L (22-26); Blood Gas Specimen Type ART; Comment AVAPS; Mode Not entered; O2 Delivery Device BiPAP; PEEP 8; PO2 90 mmHG (75-100); RR 12; SITE L Radial; SO2 96 % (95-99); Total Carbon Dioxide 37 mmol/L; pCO2 66.6 mmHg (35-45); pH 7.33 (7.35-7.45)
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
[2023-07-03 10:19] LABS: Mucous, Urine 0 SEEN /hpf (<or=2+); Red Blood Cells-Urine 0 SEEN /hpf (0-5)
[2023-07-03 10:28] LABS: Color, Urine Yellow (Yellow); Glucose, Dipstick Normal (Normal); Ketone-Dipstick Negative (Negative); Leukocyte Esterase-Dipstick 25 /ul (Negative); Nitrite-Dipstick Negative (Negative); Occult Blood-Urine 10 /ul (Negative); Protein-Dipstick 30 mg/dl (Negative); Specific Gravity, Urine 1.015 (1.002-1.030); Urine Bilirubin Dipstick Negative (Negative); Urine Clarity Sl. Cloudy (Clear); Urine Urobilinogen Normal (Normal)
[2023-07-03 10:37] LABS: Bacteria 2+ /hpf (None Seen); Squamous Epithelial Cells - UA 5-10 SEEN /hpf (5-10); White Blood Cells 0-5 SEEN /hpf (0-5); Yeast-Urine RARE /hpf (None Seen)
[2023-07-03] MEDS: Ipratropium/Albuterol Sulfate 3 ML AMPUL.NEB INHALATION ×3 (12:45→19:05)
[2023-07-03] MEDS: Acetaminophen 500 MG Tablet 1000 MG PO ×2 (13:47→20:43)
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
[2023-07-03 15:41] LABS: Anion Gap 4 (5-15); BUN 31 mg/dL (7-18); BUN/Creat Ratio 46.1 RATIO (10-20); Calcium,Total 9.2 mg/dL (8.5-10.1); Chloride 98 mmol/L (98-107); Creatinine, Serum 0.67 mg/dL (0.55-1.02); EST Glomerular Filtration Rate 89 mL/min (>60); Est Glom Filt Rate - Afr Amer 107 mL/min (>60); Estimated Creatinine Clearance 49.21 ml/min; Glucose 130 mg/dL (74-106); Potassium 4.9 mmol/L (3.5-5.1); Sodium Level 136 mmol/L (136-145)
[2023-07-03] MEDS: guaiFENesin 1,200 MG Tablet 1200 MG PO (20:44)
[2023-07-03] MEDS: Menthol/Lanolin/Calamine/Znox 113 GM Tube 1 APPLIC TOPICAL (20:44)
[2023-07-04] VITALS (16 sets, daily range): BP systolic 101–129; BP diastolic 42–52; PULSE 72–89; RESP 10–30; TEMP 36.4–36.7; O2SAT 94–100; BMI 27.8
[2023-07-04 06:37] LABS: Absolute Lymphocyte Count 0.64 X10^3/uL (0.83-4.51); Absolute Neutrophil Count 7.4 X10^3/uL (2.0-7.7); Basophil# 0.01 X10^3/uL; Basophil% 0.1 % (0-1); Hematocrit 31.2 % (37-47); Hemoglobin 9.6 g/dL (12.0-15.0); Lymphocyte # 0.64 X10^3/ul (0.83-4.51); Lymphocyte % 7.5 % (19-41); Mean Corp Hgb Conc 30.8 g/dL (32-36); Mean Corpuscular Hgb 32.2 pg (27.0-32.0); Mean Corpuscular Volume 104.7 fL (81-99); Mean Platelet Vol. 9.4 fl (6.2-12.0); Monocyte# 0.43 X10^3/uL; NRBC Flagged by Analyzer 0 % (0-5); Neutrophil # 7.43 X10^3/uL (2.7-7.7); Neutrophil % 86.9 % (47-70); POSITIVE MORPHOLOGY YES; Platelet Count 179 K/mm3 (150-450); RBC Distribution Width CV 20.5 % (11.6-14.6); RBC Distribution Width SD 78.6 fl (35.1-43.9); Red Blood Count 2.98 M/mm3 (4.2-5.4); White Blood Count 8.6 K/mm3 (4.4-11.0)
[2023-07-04] MEDS: 0.9% Saline Lock 10 ML Syringe IV ×2 (06:42→17:57)
[2023-07-04] MEDS: Acetaminophen 500 MG Tablet 1000 MG PO ×3 (06:42→20:13)
[2023-07-04] MEDS: Ipratropium/Albuterol Sulfate 3 ML AMPUL.NEB INHALATION (07:02)
[2023-07-04 07:03] LABS: Anion Gap 2 (5-15); BUN 40 mg/dL (7-18); BUN/Creat Ratio 48.8 RATIO (10-20); Calcium,Total 9.5 mg/dL (8.5-10.1); Chloride 97 mmol/L (98-107); Creatinine, Serum 0.82 mg/dL (0.55-1.02); EST Glomerular Filtration Rate 71 mL/min (>60); Est Glom Filt Rate - Afr Amer 85 mL/min (>60); Estimated Creatinine Clearance 48.37 ml/min; Glucose 116 mg/dL (74-106); Potassium 4.8 mmol/L (3.5-5.1); Sodium Level 134 mmol/L (136-145); T4 Free Direct 1.03 ng/dL (0.76-1.46); Thyroid Stim Hormone (TSH) 3.51 uIU/mL (0.358-3.74)
[2023-07-04 07:05] LABS: Differential Indicated SCAN CRITERIA MET
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
[2023-07-04] MEDS: Menthol/Lanolin/Calamine/Znox 113 GM Tube 1 APPLIC TOPICAL ×2 (07:42→20:15)
[2023-07-04] MEDS: Furosemide 40 MG/4 ML Vial IV ×2 (07:42→17:57)
[2023-07-04] MEDS: Pantoprazole Sodium 40 MG Tablet PO (07:42)
[2023-07-04] MEDS: guaiFENesin 1,200 MG Tablet 1200 MG PO ×2 (07:42→20:13)
[2023-07-04 07:49] LABS: Anisocytosis 1+
--- NOTE | 2023-07-04 09:27 | PN.HOSP_ITS ---
Reason for Visit Reason for Visit: Diagnoses Pulmonary hypertension, unspecified (07/03/23) Nonrheumatic mitral (valve) stenosis (07/03/23) Paroxysmal atrial fibrillation (07/03/23) Acute on chronic diastolic (congestive) heart failure (07/03/23) Heart failure, unspecified (07/03/23) Acute respiratory failure with hypoxia (07/03/23) Acute respiratory failure with hypercapnia (07/03/23) Presence of cardiac pacemaker (07/03/23) Objective Data Objective Data Vital Signs: Vital Signs Temp Pulse Resp BP Pulse Ox O2 Del Method O2 Flow Rate 98.0 F 87 14 118/47 L 97 Room Air 2 07/04/23 08:00 07/04/23 08:00 07/04/23 08:00 07/04/23 08:00 07/04/23 08:00 07/04/23 08:00 07/04/23 07:00 FiO2 30 07/04/23 03:00 Oxygen Flow Rate (L/min) 2 Oxygen Delivery Method Room Air Weight: 157 lb 6.561 oz Body Mass Index (BMI) 27.8 Intake & Output: Intake and Output for Last 24 Hours 07/02/23 07/03/23 07/04/23 23:59 23:59 23:59 Intake Total 120 / 120 Output Total 240 / 240 250 / 250 Balance -240 / -240 -130 / -130 Lab / Micro Data 07/04/23 06:30 07/04/23 06:30 Labs: Laboratory Results - last 24 hr 07/03/23 10:10: Urine Color Yellow, Urine Clarity Sl. Cloudy, Urine pH 6.0, Ur Specific [place] 1.015, Urine Protein 30 H, Urine Glucose (UA) Normal, Urine Ketones Negative, Urine Occult Blood 10 H, Urine Nitrite Negative, Urine Bilirubin Negative, Urine Urobilinogen Normal, Ur Leukocyte Esterase 25 H, Urine RBC 0 SEEN, Urine WBC 0-5 SEEN, Ur Squamous Epith Cells 5-10 SEEN, Urine Bacteria 2+, Urine Mucus 0 SEEN, Urine Yeast RARE 07/03/23 15:00: Sodium 136, Potassium 4.9, Chloride 98, Carbon Dioxide 34.0 H, A nion Gap 4 L, BUN 31 H, Creatinine 0.67, Estim Creat Clear Calc 49.21, Est GFR (MDRD) Af Amer 107, Est GFR (MDRD) Non-Af 89, BUN/Creatinine Ratio 46.1 H, G lucose 130 H, Calcium 9.2 07/04/23 06:30: WBC 8.6, RBC 2.98 L, Hgb 9.6 L, Hct 31.2 L, MCV 104.7 H, MCH 32.2 H, MCHC 30.8 L, RDW Std Deviation 78.6 H, RDW Coeff of Jeaneth 20.5 H, Plt Count 179, MPV 9.4, Immature Gran % (Auto) 0.500, Neut % (Auto) 86.9 H, Lymph % (Auto) 7.5 L, [place] % (Auto) 5.0, Eos % (Auto) 0.0, Baso % (Auto) 0.1, Absolute Neuts (auto) 7.4, Absolute Lymphs (auto) 0.64 L, Nucleated RBC % 0, Anisocytosis 1+, Sodium 134 L, Potassium 4.8, Chloride 97 L, Carbon Dioxide 35.0 H, Anion Gap 2 L , BUN 40 H, Creatinine 0.82, Estim Creat Clear Calc 48.37, Est GFR (MDRD) Af Amer 85, Est GFR (MDRD) Non-Af 71, BUN/Creatinine Ratio 48.8 H, Glucose 116 H, Calcium 9.5, TSH 3.51, Free T4 1.03 Micro: Microbiology 07/03/23 10:10 Urine, Clean Catch Urine Culture - Final Mixed Gram Pos & Gram Neg Org 07/03/23 10:10 Urine, Clean Catch Legionella Antigen - Final 07/03/23 10:10 Urine, Clean Catch Streptococcus pneumoniae Antigen (M - Final 07/03/23 09:30 Mucosa - Nasopharyngeal SARS-CoV-2, Influenza & RSV (PCR) - Final Radiography Diagnostic Testing: Radiology Impression Echocardiogram 07/03/23 08:49 Interpretation Summary The estimated ejection fraction is 65-70 %. Stage 2 diastolic dysfunction. The left atrium is markedly enlarged. Mild toMild (1+) mitral valve insufficiency. Moderate ricuspid valve insufficiency. Pulmonary artery systolic pressure estimated at 62 mmHg. Stable appearing bioprosthetic aortic valve apparatus. Mild to moderate eccentric aortic valve insufficiency. Mildly dilated aortic root. Ordering Physician: Jim Urban Performed By: Erasmo Sánchez RCS Physical Exam Narrative Physical exam General: Alert, Oriented x3, Cooperative HEENT: Atraumatic, PERRLA, EOMI, Normocephalic Oral: Oral mucosa moist. Neck: Supple, No JVD, Negative Carotid Bruits Chest wall/Lungs: Air entry severely diminished in posterior half of both lungs. Bilateral pleural effusion. On room air Cardiovascular: Paced rhythm. Systolic and diastolic murmur present over right second ICS, bioprosthetic AVR Abdomen: Bowel Sounds Present, Soft, Non Tender, Non-Distended : No dysuria. No renal angle tenderness. No suprapubic tenderness. Extremities: Mild bilateral feet edema, Capillary Refill Less than 3 Seconds Skin: No rashes, No breakdown Musculoskeletal: Mild tenderness present in both knees. Has bruise. ROM restricted at knees and hip joints Neurological: Cranial nerves II-XII grossly intact, DTR 2+/4. No acute focal neurological deficit. Psych/Mental Status: Flat affect Assessment & Plan Assessment/Plan (1) Acute on chronic diastolic (congestive) heart failure: (2) Pleural effusion due to CHF (congestive heart failure): (3) Acute respiratory failure with hypoxia and hypercapnia: PLAN: Plan This is a 82-year-old female being admitted directly from acute rehab because of respiratory distress and acute hypoxic and hypercarbic respiratory failure 1. Acute combined hypoxic and hypercarbic respiratory failure probably due to bilateral pleural effusion and atelectasis: Patient is being admitted in ICU on BiPAP. First ABG shows severe respiratory acidosis, pH 7.23, pCO2 86/bicarb 36 on 60% FiO2. Repeat ABG ordered after 1 hour. Concession Worker consulted for further management.Patient clinical status and chest x-ray does not seem clinical deterioration due to respiratory infection but pneumonia workup ordered. 07/03: Repeat ABG shows improvement in acid-base status. 7.33/66/90 on 30% FiO2. Patient was on BiPAP for 3 to 4 hours last night currently on room air. 2. Bilateral pleural effusion with atelectasis due to acute on chronic HFpEF, valvular heart disease, mild to moderate mitral stenosis, 1-2+ TR,Trivial AI RVSP 38 mmHg. Stable appearing bioprosthetic aortic valve apparatus, [place] tissue valve 2012. On auscultation, seems patient has systolic and diastolic murmur and echo mentioned above is from June 2021: Complete 2D echo ordered. Twelve-lead EKG ordered. 07/03: Repeat echo reviewed. EF 65 to 70%, stage II diastolic dysfunction. Mean transit mitral valve gradient 5.7 mmHg, mild to moderate MS, mild MR, moderate TR, PASP 60 mmHg. Mild to moderate eccentric AI. Patient was evaluated by inventory control planner for decompensated heart failure due to valvular heart disease with bilateral pleural effusion.Thoracocentesis ordered. 3. 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 Repeat UA and urine culture ordered. Atherosclerotic heart disease without angina, paroxysmal A-fib on Eliquis: On monitor patient has paced rhythm 4. Hypertension, dyslipidemia: Blood pressure is in normal range. 5. GERD and hypothyroidism: Pantoprazole ordered. 6. Hypothyroidism: TSH and free T4 tomorrow a.m. Living will/advanced directive/end of life care: Patient does have living will or advanced directive. Her son is power of deputy attorney general for health. After discussion of benefits/risks procedures involved with full code, DNR CC arrest and DNR CC, the patient opted for full code. Patient does want artificial life support including intubation, tube feed, ventilator and/chest compression, central venous catheter, vasopressor and DC shock if needed Total time spent in [id number] encounter in discussion of advanced directive 17 minutes. Clinical Impression(s) from Imaging Studies Echocardiogram 07/03/23 08:49 Interpretation Summary The estimated ejection fraction is 65-70 %. Stage 2 diastolic dysfunction. The left atrium is markedly enlarged. Mild toMild (1+) mitral valve insufficiency. Moderate ricuspid valve insufficiency. Pulmonary artery systolic pressure estimated at 62 mmHg. Stable appearing bioprosthetic aortic valve apparatus. Mild to moderate eccentric aortic valve insufficiency. Mildly dilated aortic root. Charges/Coding Visit Charges Inpatient E&M: 80657 Subs Hosp L3
--- NOTE | 2023-07-04 09:48 | CASEMGMT ---
DEIDRE HERNANDEZ Assessment Face to Face with patient for initial transition planning/care coordination assessment. DEIDRE HERNANDEZ introduced self and role at [facility], pt voices understanding. Pt is A&Ox4 and is resting comfortably in the chair. Care providers, pharmacy, and demographics verified. Admitting dx: Acute RF LACE Strata: 2 PCP: Omar Specialists: Cardio at [facility] (Donald Rueda) Preferred Pharmacy: [facility] Insurance: AETNA [facility] Prescription Benefit: Yes - pt states that she has MCR Part D LNOK: Joby Renteria ( - currently at [facility]) Living Arrangements: Pt lives with her in a single story home with 2 steps to enter ADLs/IADLs: Pt states that she was ind but is starting to require more help. Pt states that she has a lunchroom aide that comes 4x/week for mainly the pt . Transportation: Pt states that she does not plan to continue to drive after this admission. Pt does not drive. DME: Walk in shower with GB and chair. Cane, FWW, Pulse Ox. HHC/SNF: Denies personal skilled HHC history. Pt was in the RU here prior to getting transferred to the ICU Pt?s goal: Return to the RU to be able to return to her PLOF Plan: Pt states that her plan is to return to the RU here once she is medically ready for DC from the ICU. SW updated and aware. Jesi Hameed RN, CM
[2023-07-04 11:52] LABS: ALB/GLOB Ratio 0.8 RATIO (0.9-2.4); Globulin 3.7 g/dL (2.2-4.2); LDH 331 U/L (84-246); Protein, Total 6.7 g/dL (6.4-8.2)
--- NOTE | 2023-07-04 13:37 | PN.CARD_ITS ---
Subjective Subjective Sitting up in the chair. Appears comfortable. Still complaining of shortness of breath with activity. Objective Data Vital Signs: Vital Signs Temp Pulse Resp BP Pulse Ox O2 Del Method O2 Flow Rate 97.6 F L 89 19 H 108/44 L 97 Nasal Cannula 2 07/04/23 10:00 07/04/23 10:00 07/04/23 10:00 07/04/23 10:00 07/04/23 10:27 07/04/23 10:27 07/04/23 10:27 FiO2 30 07/04/23 03:00 Oxygen Flow Rate (L/min) 2 Oxygen Delivery Method Nasal Cannula Weight: 157 lb 6.561 oz Body Mass Index (BMI) 27.8 Intake & Output: Intake and Output for Last 24 Hours 07/02/23 07/03/23 07/04/23 23:59 23:59 23:59 Intake Total 340 / 340 Output Total 240 / 240 250 / 250 Balance -240 / -240 90 / 90 Lab / Micro Data 07/04/23 06:30 07/04/23 06:30 Labs: Laboratory Results - last 24 hr 07/03/23 15:00: Sodium 136, Potassium 4.9, Chloride 98, Carbon Dioxide 34.0 H, A nion Gap 4 L, BUN 31 H, Creatinine 0.67, Estim Creat Clear Calc 49.21, Est GFR (MDRD) Af Amer 107, Est GFR (MDRD) Non-Af 89, BUN/Creatinine Ratio 46.1 H, G lucose 130 H, Calcium 9.2 07/04/23 06:30: WBC 8.6, RBC 2.98 L, Hgb 9.6 L, Hct 31.2 L, MCV 104.7 H, MCH 32.2 H, MCHC 30.8 L, RDW Std Deviation 78.6 H, RDW Coeff of Jeaneth 20.5 H, Plt Count 179, MPV 9.4, Immature Gran % (Auto) 0.500, Neut % (Auto) 86.9 H, Lymph % (Auto) 7.5 L, [place] % (Auto) 5.0, Eos % (Auto) 0.0, Baso % (Auto) 0.1, Absolute Neuts (auto) 7.4, Absolute Lymphs (auto) 0.64 L, Nucleated RBC % 0, Anisocytosis 1+, Sodium 134 L, Potassium 4.8, Chloride 97 L, Carbon Dioxide 35.0 H, Anion Gap 2 L, BUN 40 H, Creatinine 0.82, Estim Creat Clear Calc 48.37, Est GFR (MDRD) Af Amer 85, Est GFR (MDRD) Non-Af 71, BUN/Creatinine Ratio 48.8 H, Glucose 116 H, Calcium 9.5, TSH 3.51, Free T4 1.03 07/04/23 06:32: Lactate Dehydrogenase 331 H, Total Protein 6.7, Globulin 3.7, A lbumin/Globulin Ratio 0.8 L Micro: Microbiology 07/03/23 10:10 Urine, Clean Catch Urine Culture - Final Mixed Gram Pos & Gram Neg Org 07/03/23 10:10 Urine, Clean Catch Legionella Antigen - Final 07/03/23 10:10 Urine, Clean Catch Streptococcus pneumoniae Antigen (M - Final 07/03/23 09:30 Mucosa - Nasopharyngeal SARS-CoV-2, Influenza & RSV (PCR) - Final Cardiology Labs/Tests 07/03/23 15:00: Sodium 136, Potassium 4.9, Chloride 98, Carbon Dioxide 34.0 H, A nion Gap 4 L, BUN 31 H, Creatinine 0.67, Est GFR (MDRD) Af Amer 107, Est GFR (MDRD) Non-Af 89, BUN/Creatinine Ratio 46.1 H, Glucose 130 H, Calcium 9.2 07/04/23 06:30: WBC 8.6, RBC 2.98 L, Hgb 9.6 L, Hct 31.2 L, MCV 104.7 H, MCH 32.2 H, MCHC 30.8 L, Plt Count 179, MPV 9.4, Immature Gran % (Auto) 0.500, Neut % (Auto) 86.9 H, Lymph % (Auto) 7.5 L, [place] % (Auto) 5.0, Eos % (Auto) 0.0, Baso % (Auto) 0.1, Absolute Neuts (auto) 7.4, Nucleated RBC % 0, Sodium 134 L, Potassium 4.8, Chloride 97 L, Carbon Dioxide 35.0 H, Anion Gap 2 L, BUN 40 H, Creatinine 0.82, Est GFR (MDRD) Af Amer 85, Est GFR (MDRD) Non-Af 71, B UN/Creatinine Ratio 48.8 H, Glucose 116 H, Calcium 9.5 Rhythm: EKG: ECHO: Stress Test: Cardiac Cath: PCI: CT Surgery: Holter monitor: EPS: PPM: CXR: Chest CT Scan: Radiography Diagnostic Testing: Radiology Impression Echocardiogram 07/03/23 08:49 Interpretation Summary The estimated ejection fraction is 65-70 %. Stage 2 diastolic dysfunction. The left atrium is markedly enlarged. Mild toMild (1+) mitral valve insufficiency. Moderate ricuspid valve insufficiency. Pulmonary artery systolic pressure estimated at 62 mmHg. Stable appearing bioprosthetic aortic valve apparatus. Mild to moderate eccentric aortic valve insufficiency. Mildly dilated aortic root. Ordering Physician: Jim Urban Performed By: Erasmo Sánchez RCS Physical Exam Narrative Appears comfortable. No apparent distress. Sitting up in the bed. Mild jugular venous distention. 3/6 systolic murmur at apex. 2/6 systolic murmur at base. Chest examination shows markedly decreased breath sounds at both bases. Alert oriented x 3. 1+ bilateral ankle edema noted. Assessment & Plan Assessment/Plan (1) Acute on chronic diastolic (congestive) heart failure: PLAN: Normal LV systolic function. Stage II diastolic dysfunction. Continue diuretics. Started on beta-blockers. Start on SGLT2 inhibitors. (2) Pleural effusion due to CHF (congestive heart failure): PLAN: Pleurx catheter being considered. (3) Paroxysmal atrial fibrillation: PLAN: Presently in sinus rhythm. On apixaban. (4) Non-rheumatic mitral valve stenosis: PLAN: Mild to moderate mitral valve stenosis on echocardiogram. Continue diuretics. (5) Presence of permanent cardiac pacemaker: (6) History of aortic valve replacement with bioprosthetic valve: PLAN: Surface echocardiogram showed mild to moderate aortic valve regurgitation. Per patient, she had a LESLEY done recently at [facility]. Will try getting results of that. Follows with cardiology at [facility]. According to her, TAVR being contemplated for her.
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
[2023-07-04] MEDS: Carvedilol 3.125 MG TABLET PO (20:13)
[2023-07-05] VITALS (12 sets, daily range): BP systolic 118–132; BP diastolic 46–55; PULSE 74–93; RESP 14–24; TEMP 36.3–36.8; O2SAT 97–100; BMI 26.9
[2023-07-05] MEDS: Acetaminophen 500 MG Tablet 1000 MG PO ×2 (06:22→20:56)
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
[2023-07-05 07:54] LABS: Absolute Lymphocyte Count 0.53 X10^3/uL (0.83-4.51); Absolute Neutrophil Count 6.4 X10^3/uL (2.0-7.7); Basophil# 0.02 X10^3/uL; Basophil% 0.3 % (0-1); Eosinophil# 0.03 X10^3/uL; Eosinophils% 0.4 % (0-5); Hematocrit 29.4 % (37-47); Hemoglobin 9.2 g/dL (12.0-15.0); Lymphocyte # 0.53 X10^3/ul (0.83-4.51); Lymphocyte % 7.2 % (19-41); Mean Corp Hgb Conc 31.3 g/dL (32-36); Mean Corpuscular Hgb 32.6 pg (27.0-32.0); Mean Corpuscular Volume 104.3 fL (81-99); Mean Platelet Vol. 9.7 fl (6.2-12.0); Monocyte# 0.33 X10^3/uL; Monocyte% 4.5 % (0-10); NRBC Flagged by Analyzer 0 % (0-5); Neutrophil # 6.39 X10^3/uL (2.7-7.7); Neutrophil % 87.3 % (47-70); POSITIVE DIFFERENTIAL YES; POSITIVE MORPHOLOGY YES; Platelet Count 167 K/mm3 (150-450); RBC Distribution Width SD 76.6 fl (35.1-43.9); Red Blood Count 2.82 M/mm3 (4.2-5.4); White Blood Count 7.3 K/mm3 (4.4-11.0)
[2023-07-05 07:57] LABS: Differential Indicated SCAN CRITERIA MET
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
[2023-07-05 08:30] LABS: Anion Gap 2 (5-15); BUN 35 mg/dL (7-18); BUN/Creat Ratio 50.4 RATIO (10-20); Calcium,Total 8.7 mg/dL (8.5-10.1); Chloride 98 mmol/L (98-107); EST Glomerular Filtration Rate 85 mL/min (>60); Est Glom Filt Rate - Afr Amer 103 mL/min (>60); Estimated Creatinine Clearance 48.82 ml/min; Glucose 104 mg/dL (74-106); LDH 309 U/L (84-246); Potassium 3.7 mmol/L (3.5-5.1); Protein, Total 5.9 g/dL (6.4-8.2); Sodium Level 138 mmol/L (136-145)
--- NOTE | 2023-07-05 08:38 | PN.HOSP_ITS ---
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) Objective Data Objective Data Vital Signs: Vital Signs Temp Pulse Resp BP Pulse Ox O2 Del Method O2 Flow Rate 98.2 F 80 14 118/49 L 98 Nasal Cannula 2.5 07/05/23 02:00 07/05/23 02:00 07/05/23 02:00 07/05/23 02:00 07/05/23 03:15 07/05/23 03:15 07/05/23 03:15 FiO2 30 07/05/23 00:05 Oxygen Flow Rate (L/min) 2.5 Oxygen Delivery Method Nasal Cannula Weight: 152 lb 5.431 oz Body Mass Index (BMI) 26.9 Intake & Output: Intake and Output for Last 24 Hours 07/03/23 07/04/23 07/05/23 23:59 23:59 23:59 Intake Total 340 / 340 Output Total 240 / 240 550 / 550 500 / 500 Balance -240 / -240 -210 / -210 -500 / -500 Lab / Micro Data 07/05/23 07:35 07/05/23 07:35 Labs: Laboratory Results - last 24 hr 07/04/23 06:32: Lactate Dehydrogenase 331 H, Total Protein 6.7, Globulin 3.7, A lbumin/Globulin Ratio 0.8 L 07/05/23 07:35: WBC 7.3, RBC 2.82 L, Hgb 9.2 L, Hct 29.4 L, MCV 104.3 H, MCH 32.6 H, MCHC 31.3 L, RDW Std Deviation 76.6 H, RDW Coeff of Jeaneth 20.0 H, Plt Count 167, MPV 9.7, Immature Gran % (Auto) 0.300, Neut % (Auto) 87.3 H, Lymph % (Auto) 7.2 L, [place] % (Auto) 4.5, Eos % (Auto) 0.4, Baso % (Auto) 0.3, Absolute Neuts (auto) 6.4, Absolute Lymphs (auto) 0.53 L, Nucleated RBC % 0, Sodium 138, Potassium 3.7, Chloride 98, Carbon Dioxide 38.0 H, Anion Gap 2 L, BUN 35 H, Creatinine 0.70, Estim Creat Clear Calc 48.82, Est GFR (MDRD) Af Amer 103, Est GFR (MDRD) Non-Af 85, BUN/Creatinine Ratio 50.4 H, Glucose 104, Calcium 8.7, L actate Dehydrogenase 309 H, Total Protein 5.9 L, Globulin 3.0, Albumin/Globulin Ratio 1.0 Micro: Microbiology 07/03/23 10:10 Urine, Clean Catch Urine Culture - Final Mixed Gram Pos & Gram Neg Org 07/03/23 10:10 Urine, Clean Catch Legionella Antigen - Final 07/03/23 10:10 Urine, Clean Catch Streptococcus pneumoniae Antigen (M - Final 07/03/23 09:30 Mucosa - Nasopharyngeal SARS-CoV-2, Influenza & RSV (PCR) - Final Physical Exam Narrative Physical exam General: Alert, Oriented x3, Cooperative HEENT: Atraumatic, PERRLA, EOMI, Normocephalic Oral: Oral mucosa moist. Neck: Supple, No JVD, Negative Carotid Bruits Chest wall/Lungs: Air entry severely diminished in posterior half of both lungs. Bilateral pleural effusion. 98% on 1 L of oxygen Cardiovascular: Paced rhythm. Systolic and diastolic murmur present over right second ICS, bioprosthetic AVR Abdomen: Bowel Sounds Present, Soft, Non Tender, Non-Distended : No dysuria. No renal angle tenderness. No suprapubic tenderness. Extremities: Mild bilateral feet edema, Capillary Refill Less than 3 Seconds Skin: No rashes, No breakdown Musculoskeletal: Mild tenderness present in both knees. Has bruise. ROM restricted at knees and hip joints Neurological: Cranial nerves II-XII grossly intact, DTR 2+/4. No acute focal neurological deficit. Psych/Mental Status: Flat affect Assessment & Plan Assessment/Plan (1) Acute on chronic diastolic (congestive) heart failure: (2) Pleural effusion due to CHF (congestive heart failure): (3) Acute respiratory failure with hypoxia and hypercapnia: PLAN: Plan This is a 82-year-old female being admitted directly from acute rehab because of respiratory distress and acute hypoxic and hypercarbic respiratory failure 1. Acute combined hypoxic and hypercarbic respiratory failure probably due to bilateral pleural effusion and atelectasis: Patient is being admitted in ICU on BiPAP. First ABG shows severe respiratory acidosis, pH 7.23, pCO2 86/bicarb 36 on 60% FiO2. Repeat ABG ordered after 1 hour. Real Property Evaluator consulted for further management.Patient clinical status and chest x-ray does not seem clinical deterioration due to respiratory infection but pneumonia workup ordered. 07/03: Repeat ABG shows improvement in acid-base status. 7.33/66/90 on 30% FiO2. Patient was on BiPAP for 3 to 4 hours last night currently on room air. 2. Bilateral pleural effusion with atelectasis due to acute on chronic HFpEF, valvular heart disease, mild to moderate mitral stenosis, 1-2+ TR,Trivial AI RVSP 38 mmHg. Stable appearing bioprosthetic aortic valve apparatus, [place] tissue valve 2012. On auscultation, seems patient has systolic and diastolic murmur and echo mentioned above is from June 2021: Complete 2D echo ordered. Twelve-lead EKG ordered. 07/03: Repeat echo reviewed. EF 65 to 70%, stage II diastolic dysfunction. Mean transit mitral valve gradient 5.7 mmHg, mild to moderate MS, mild MR, moderate TR, PASP 60 mmHg. Mild to moderate eccentric AI. Patient was evaluated by museum or zoo director for decompensated heart failure due to valvular heart disease with bilateral pleural effusion.Thoracocentesis ordered. 07/04: Patient on room air to 1 L of oxygen. Yesterday thoracocentesis was canceled as there was proposed plan for Pleurx catheter as told by Dr. Maryuri Lou. Surgeon was consulted. As per the patient, patient had last echo centesis in [facility] about 3 weeks ago. She said that it might cause scarring and there is risk for infection therefore she does not want it. Ultrasound-guided thoracocentesis ordered. She also has Zoom meeting with [facility] cardiology for TAVR procedure. Pneumonia workup negative. 3. 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 Repeat UA and urine culture ordered. 07/04: Urine culture shows mixed gram-positive and gram-negative organisms. UTI ruled out. Atherosclerotic heart disease without angina, paroxysmal A-fib on Eliquis: On monitor patient has paced rhythm 4. Hypertension, dyslipidemia: Blood pressure is in normal range. 5. GERD and hypothyroidism: Pantoprazole ordered. 6. Hypothyroidism: TSH and free T4 tomorrow a.m. Living will/advanced directive/end of life care: Patient does have living will or advanced directive. Her son is power of assistant attorney general for health. After discussion of benefits/risks procedures involved with full code, DNR CC arrest and DNR CC, the patient opted for full code. Patient does want artificial life support including intubation, tube feed, ventilator and/chest compression, central venous catheter, vasopressor and DC shock if needed Total time spent in [id number] encounter in discussion of advanced directive 17 minutes. Clinical Impression(s) from Imaging Studies Echocardiogram 07/03/23 08:49 Interpretation Summary The estimated ejection fraction is 65-70 %. Stage 2 diastolic dysfunction. The left atrium is markedly enlarged. Mild toMild (1+) mitral valve insufficiency. Moderate ricuspid valve insufficiency. Pulmonary artery systolic pressure estimated at 62 mmHg. Stable appearing bioprosthetic aortic valve apparatus. Mild to moderate eccentric aortic valve insufficiency. Mildly dilated aortic root. Charges/Coding Visit Charges Inpatient E&M: 11913 Subs Hosp L3
[2023-07-05] MEDS: Menthol/Lanolin/Calamine/Znox 113 GM Tube 1 APPLIC TOPICAL ×2 (08:43→20:57)
[2023-07-05] MEDS: Carvedilol 3.125 MG TABLET PO ×2 (08:43→20:58)
[2023-07-05] MEDS: Empagliflozin 10 MG Tablet PO (08:44)
[2023-07-05] MEDS: guaiFENesin 1,200 MG Tablet 1200 MG PO ×2 (08:44→20:58)
[2023-07-05] MEDS: 0.9% Saline Lock 10 ML Syringe IV ×2 (08:44→17:40)
[2023-07-05] MEDS: Furosemide 40 MG/4 ML Vial IV ×2 (08:44→17:39)
[2023-07-05] MEDS: Pantoprazole Sodium 40 MG Tablet PO (08:44)
[2023-07-05 08:57] LABS: Anisocytosis 1+
--- NOTE | 2023-07-05 09:18 | CASEMGMT ---
Per Melyssa if patient is ready for discharge today she would not need a pre-cert to return. Desirae García MAINTENANCE EQUIPMENT OPERATOR LAUREL
[2023-07-05] MEDS: Lidocaine 2% (20 ml mdv) 20 ML Vial INFILT (13:34)
--- NOTE | 2023-07-05 13:35 | FLU_PTH ---
PATIENT: MIRTHA VALLE LOC: [facility] U#:[id number] AGE/SX: 82/F ROOM: [facility] RE07/03/[address]: Dr. Orquidea Blake DO : 1940 BED: 1 DIS: 07/12/2023 SPEC #: [id number] RECD: 07/05/23 13:52 STATUS: DASH REQ #: [id number] KENNETH: 07/05/23 13:[address]: Jim Urban DEPT: CYTOLOGY RECD BY: Jeannine Montalvo ENTERED: 07/06/23 08:36 SP TYPE: Fluid OTHR DR: MD Dr. Horace Fletcher MD Dr. Adan Mora, MD Dr. Arshad Rehan, MD Dr. Chitra Ganta, MD Dr. Derek Brown, DO Dr. David de Lorenzo, DO Dr. Edward Matheis, MD Dr. Gautam Baskaran, MD Dr. Yordanos Habtegebriel, MD Dr. Hemant Dand, MD Dr. Kimber Foust, MD Dr. Lamia Aljundi, MD Dr. Pritam Ghosh, MD Dr. Pavan Irukulla, MD Dr. Saad Farooqi, MD Dr. Vikram Anand, MD Dr. William Haden, MD Tissues: Pleural fluid, NOS Procedures: Special Stain Group II Surgery Specimen Level IV Cytospin Fluid HEADER OPERATION: Ultrasound guided thoracentesis PRE-OP DIAGNOSIS: Pleural effusion, right TISSUE SUBMITTED: Thoracentesis fluid for cytology DIAGNOSIS CYTOLOGY Thoracentesis fluid for cytology (cytospin and cellblock): Negative for malignant cells. See comment. FERMIN/ 07/07/2023 COMMENT Immunohistochemistry ([id number]) supports the above diagnosis. CYTOLOGY STUDY Slides are reviewed. CYTOLOGY GROSS Received is 70 ml of yellow cloudy fluid labeled with the patient's name and and designated per the requisition as Thoracentesis fluid. Submitted for cytology preparation including cell block. Mr 07/06/2023 TC:5 CPT: 03066 , 41017
--- NOTE | 2023-07-05 13:50 | RAD_ITS ---
STUDY: X-RAY CHEST REASON FOR EXAM: Female, 82 years old. B/L pleural effusion TECHNIQUE: AP inspiration and expiration views. COMPARISON: Comparison is made with prior study dated July 03, 2023. FINDINGS: The patient is status post right thoracentesis. There is no evidence of pneumothorax. Persistent pleural-parenchymal changes at the left lung base. RAD/Chest Insp/Exp 2 View IMPRESSION: No evidence of pneumothorax following the right thoracentesis. Electronically Signed: Ben Nguyen MD at 14:09 EDT ,
[2023-07-05 14:00] LABS: Cytology, Body Fluid / CSF SEE PATHOLOGY REPORT
[2023-07-05 14:14] LABS: Specific Gravity, Body Fluid 1.018
--- NOTE | 2023-07-05 14:18 | PRO.PCM_ITS ---
Procedure Report Date of Procedure: 07/05/23 Assessment & Plan Assessment/Plan (1) Pleural effusion: PLAN: PROCEDURE: Ultrasound Guided Thoracentesis ORDERING PROVIDER: Dr. Urban INDICATION: Female, 82 years old. Bilateral pleural effusion. PROVIDER: JANE Howell PROCEDURE: The risks, benefits, and alternatives to the procedure were explained to the patient. The specific risks of bleeding, infection, and pneumothorax requiring chest tube insertion were discussed and accepted. Written informed consent was obtained. The patient was placed in the sitting, upright position. Ultrasonographic evaluation of the bilateral lower pleural spaces was carried out. An adequate pocket was identified in the right lower pleural space.The overlying skin was prepped and draped in sterile fashion. 2% lidocaine was administered subcutaneously for local anesthesia. Under ultrasound guidance, a 5-Singaporean thoracentesis needle/catheter system was advanced into the right posterior lower pleural fluid collection. 590 ml of cloudy keon colored fluid was drained. 100 mL of this fluid was collected and sent to laboratory for analysis. The catheter was removed, and a sterile dressing was applied. The patient tolerated the procedure well. A chest x-ray was ordered. IMPRESSION: Successful ultrasound-guided thoracentesis of right pleural effusion. Procedures Radiology Radiology US Procedures: 61825 Thoracentesis
[2023-07-05 14:21] LABS: Body Fluid Mononuclear WBC # 0.371 10^3/uL; Body Fluid Mononuclear WBC % 87.5 %; Body Fluid Polynuclear WBC # 0.053 10^3/uL; Body Fluid Polynuclear WBC % 12.5 %; Body Fluid Total Cells Counted 0.444 10^3/ul; Red Cell Count/Body Fluid 0.003 10^6/ul; White Blood Count/Body Fluid 0.424 10^3/uL
[2023-07-05 14:44] LABS: Appearance/Body Fluid SL CLDY; Auto B Fluid Analyzer BKGD Ct COUNTS W/IN LIMITS (W/IN LIMITS); Color/Body Fluid YELLOW; Source- Body Fluid THORACENTESIS
[2023-07-05 14:47] LABS: Protein, Body Fluid 2.4 g/dL (Not Establ.)
[2023-07-05 15:21] LABS: Lymphocytes 73 %; Mesothelial Cells 9 %; Monocytes 1 %; Neutrophil (Segs) 17 %
[2023-07-05 15:22] LABS: Body Fluid QC Type(s) BF1Q
[2023-07-05 15:42] LABS: Glucose, Body Fluid 140 mg/dL (40-70); LDH,Body Fluid 90 Units/L (Not Establ.)
[2023-07-05] MEDS: Zolpidem Tartrate 5 MG Tablet 2.5 MG PO (20:57)
[2023-07-06] VITALS (11 sets, daily range): BP systolic 113–125; BP diastolic 42–73; PULSE 75–89; RESP 16–26; TEMP 36.1–36.6; O2SAT 93–100; BMI 25.9
--- NOTE | 2023-07-06 | IMM_PTH ---
PATIENT: MIRTHA VALLE LOC: [facility] U#:[id number] AGE/SX: 82/F ROOM: [facility] RE07/03/[address]: Dr. Orquidea Blake DO : 1940 BED: 1 DIS: 07/12/2023 SPEC #: [id number] RECD: 07/07/23 13:07 STATUS: DASH REQ #: [id number] KENNETH: 07/06/23 00:[address]: Jim Urban DEPT: IMMUNOHISTOCHEMISTRY RECD BY: Gaurav Burgos ENTERED: 07/07/23 13:08 SP TYPE: IMMUNO OTHR DR: MD Dr. Horace Fletcher MD Dr. Adan Mora, MD Dr. Arshad Rehan, MD Dr. Chitra Ganta, MD Dr. Derek Brown, DO Dr. David de Lorenzo, DO Dr. Edward Matheis, MD Dr. Gautam Baskaran, MD Dr. Yordanos Habtegebriel, MD Dr. Hemant Dand, MD Dr. Kimber Foust, MD Dr. Lamia Aljundi, MD Dr. Pritam Ghosh, MD Dr. Pavan Irukulla, MD Dr. Saad Farooqi, MD Dr. Vikram Anand, MD Dr. William Haden, MD Tissues: Pleural fluid, NOS Procedures: Cayden Ret (add) CD45 (add) CK20 (add) CK7 (add) MONY (add) KI-67 (add) P53 (add) Pankeratin (initial) CD68 (ADD) PHYSICIAN & INSTITUTION [address] [address] SPECIMEN INFORMATION: Tissue Source: Thoracentesis fluid Clinical Info: Pleural effusion, right Specimen Number: [id number] CPT code: 73942,[id number] METHODOLOGY: Deparaffinized sections of prefer/formalin-fixed tissue or PAP/DQ stained slides are incubated with monoclonal/polyclonal antibodies/oligonucleotide probes. Localization is made via biotin free immunoperoxidase method. Appropriate controls are performed and reacted as expected. Results on target cell population are indicated in the following table: RESULTS: ANTIBODY / CLONE RESULT AE1-3 (AE1/AE3/PCK26) negative CK7 (OV-TL12/30) positive, rare CK20 (KS20.8) negative CD45 (RP2/18) positive CD68 (KP-1) positive CALRET (polyclonal) positive, rare MONY (E29) negative P53 (DO-7) negative, null pattern Ki-67 (30-9) positive, low These tests were developed and their performance characteristics determined by [facility]. They may not have been cleared or approved by the U.S. Food and Drug Administration. The FDA has determined that such clearance or approval is not necessary. The above immunohistochemical/dualISH markers are ordered and reviewed by the Pathologist. INTERPRETATION: Thoracentesis fluid for cytology: No evidence of malignancy. AM/mr 07/10/2023
[2023-07-06] MEDS: Acetaminophen 500 MG Tablet 1000 MG PO ×3 (06:06→21:19)
--- NOTE | 2023-07-06 07:19 | PCM.DC.SUM ---
Providers Date of Admission: 07/03/23 Date of Discharge: 07/06/23 Primary Care Physician: Dr. Heaven Nelson MD Consultations 07/03/23 08:42 Consult: Logistics Supply Officer / Pulmonary Medicine Routine Consulting Provider: Intensivists/Pulmonary Med Reason for Consult: acute combined resp failure, B/L pleural effusion EMERGENT Consult: No MD Notified: Yes Date Notified: 07/03/23 Time Notified: 08:42 Method of Notification: Text 07/03/23 10:23 Consult: Cardiology Routine Consulting Provider: Oliver Mcneill Reason for Consult: Decompensated valvular heart disease EMERGENT Consult: No Notified: Yes Date Notified: 07/03/23 Time Notified: 10:23 Method of Notification: Text 07/04/23 12:30 Consult: General Surgery Routine Consulting Provider: Isreal Caceres Reason for Consult: recurrent pleual effusion, pleurex catheter EMERGENT Consult: No MD Notified: Yes Date Notified: 07/04/23 Time Notified: 12:30 Method of Notification: Verbal Reason For Visit: ACUTE HYBERCARBIC RESP FAILURE Diagnosis Discharge Diagnosis (1) Pleural effusion: Status: Acute Code(s): J90 - Pleural effusion, not elsewhere classified Plan This is a 82-year-old female being admitted directly from acute rehab because of respiratory distress and acute hypoxic and hypercarbic respiratory failure 1. Acute combined hypoxic and hypercarbic respiratory failure probably due to bilateral pleural effusion and atelectasis: Patient is being admitted in ICU on BiPAP. First ABG shows severe respiratory acidosis, pH 7.23, pCO2 86/bicarb 36 on 60% FiO2. Repeat ABG ordered after 1 hour. Logistics Supply Officer consulted for further management.Patient clinical status and chest x-ray does not seem clinical deterioration due to respiratory infection but pneumonia workup ordered. 07/03: Repeat ABG shows improvement in acid-base status. 7.33/66/90 on 30% FiO2. Patient was on BiPAP for 3 to 4 hours last night currently on room air. 2. Bilateral pleural effusion with atelectasis due to acute on chronic HFpEF, valvular heart disease, mild to moderate mitral stenosis, 1-2+ TR,Trivial AI RVSP 38 mmHg. Stable appearing bioprosthetic aortic valve apparatus, [place] [facility] tissue valve 2012. On auscultation, seems patient has systolic and diastolic murmur and echo mentioned above is from June 2021: Complete 2D echo ordered. Twelve-lead EKG ordered. 07/03: Repeat echo reviewed. EF 65 to 70%, stage II diastolic dysfunction. Mean transit mitral valve gradient 5.7 mmHg, mild to moderate MS, mild MR, moderate TR, PASP 60 mmHg. Mild to moderate eccentric AI. Patient was evaluated by broaching machine operator for decompensated heart failure due to valvular heart disease with bilateral pleural effusion.Thoracocentesis ordered. 07/04: Patient on room air to 1 L of oxygen. Yesterday thoracocentesis was canceled as there was proposed plan for Pleurx catheter as told by Dr. Maryuri Lou. Surgeon was consulted. As per the patient, patient had last echo centesis in [facility] about 3 weeks ago. She said that it might cause scarring and there is risk for infection therefore she does not want it. Ultrasound-guided thoracocentesis ordered. She also has Zoom meeting with [facility] cardiology for TAVR procedure. Pneumonia workup negative. 07/05: Patient had 590 mL cloudy keon-colored fluid drained from right pleural cavity. Fluid total protein 2.4, LDH 90. 12.5% polynuclear cells, mononuclear 87.5%., Mesothelial cells 9%. As per lights criteria, fluid is transudative in nature due to HFpEF and valvular heart disease. Patient had Zoom meeting for which patient talked to PANFILO Hollis for Dr. Donald Rueda and he recommended inpatient evaluation for TAVR. After that given clinic transfer line was called and patient was accepted in cardiology service there. Pending bed evaluated patient will be transferred to [facility] for optimal management of valvular heart disease 3. Dysuria, UTI ruled out: Last urine culture on 07/02/2023 shows GNR lactose dike supervisor less than 1000 colonies. Repeat UA and urine culture ordered. 07/04: Urine culture shows mixed gram-positive and gram-negative organisms. UTI ruled out. Atherosclerotic heart disease without angina, paroxysmal A-fib on Eliquis: On monitor patient has paced rhythm 4. Hypertension, dyslipidemia: Blood pressure is in normal range. 5. GERD and hypothyroidism: Pantoprazole ordered. 6. Hypothyroidism: TSH and free T4 tomorrow a.m. Living will/advanced directive/end of life care: Patient does have living will or advanced directive. Her son is power of assistant city attorney for health. After discussion of benefits/risks procedures involved with full code, DNR CC arrest and DNR CC, the patient opted for full code. Patient does want artificial life support including intubation, tube feed, ventilator and/chest compression, central venous catheter, vasopressor and DC shock if needed Total time spent in [id number] encounter in discussion of advanced directive 17 minutes. Clinical Impression(s) from Imaging Studies Echocardiogram 07/03/23 08:49 Interpretation Summary The estimated ejection fraction is 65-70 %. Stage 2 diastolic dysfunction. The left atrium is markedly enlarged. Mild toMild (1+) mitral valve insufficiency. Moderate ricuspid valve insufficiency. Pulmonary artery systolic pressure estimated at 62 mmHg. Stable appearing bioprosthetic aortic valve apparatus. Mild to moderate eccentric aortic valve insufficiency. Mildly dilated aortic root. Medications at Discharge Home Medications multivitamin with iron 1 ea PO DAILY Supplement 06/25/16 rosuvastatin 10 mg tablet 10 mg PO DAILY Cholestrol 08/21/20 levothyroxine 50 mcg tablet 100 mcg PO DAILY Hypothyroid 02/04/22 apixaban 5 mg tablet (Eliquis) 5 mg PO BID Blood thinner 05/27/23 furosemide 40 mg tablet 20 mg PO DAILY BP 05/27/23 acetaminophen 325 mg capsule (Tylenol) 975 mg PO Q6H PRN pain (scale score 1-10) 06/23/23 bisacodyl 10 mg rectal suppository 10 mg CO DAILY PRN constipation 06/23/23 cholecalciferol (vitamin D3) 25 mcg (1,000 unit) capsule 25 mcg PO DAILY supplement 06/23/23 d-mannose ea PO TID supplement 06/23/23 ipratropium 0.5 mg-albuterol 3 mg (2.5 mg base)/3 mL nebulization soln 3 ml inhalation Q8H Wheezing/SOB 06/23/23 methenamine hippurate 1 gram tablet 1 g PO BID supplement 06/23/23 pantoprazole 40 mg tablet,delayed release 40 mg PO 0600 GI bleed 06/23/23 polyethylene glycol 3350 17 gram/dose oral powder (Miralax) 17 g PO BID Constipation 06/23/23 spironolactone 25 mg tablet 50 mg PO DAILY Fluid retention 06/23/23 atenolol 25 mg tablet 25 mg PO .QAM blood pressure 07/03/23 atenolol 50 mg tablet 50 mg PO QHS blood pressure 07/03/23 buspirone 5 mg tablet 5 mg PO BID anxiety 07/03/23 Physical Exam Narrative Patient on minimal parameter of AVAPS during naps and at night. Currently on room air. Physical exam General: Alert, Oriented x3, Cooperative HEENT: Atraumatic, PERRLA, EOMI, Normocephalic Oral: Oral mucosa moist. Neck: Supple, No JVD, Negative Carotid Bruits Chest wall/Lungs: Air entry severely diminished in posterior half of both lungs. Bilateral pleural effusion status post thoracocentesis. Cardiovascular: Paced rhythm. Systolic and diastolic murmur present over right second ICS, bioprosthetic AVR Abdomen: Bowel Sounds Present, Soft, Non Tender, Non-Distended : No dysuria. No renal angle tenderness. No suprapubic tenderness. Extremities: Mild bilateral feet edema, Capillary Refill Less than 3 Seconds Skin: No rashes, No breakdown Musculoskeletal: Mild tenderness present in both knees. Has bruise. ROM restricted at knees and hip joints Neurological: Cranial nerves II-XII grossly intact, DTR 2+/4. No acute focal neurological deficit. Psych/Mental Status: Flat affect Weight / BMI Weight Weight: 146 lb 2.664 oz Body Mass Index (BMI) 25.9 ABG / Lab / Microbiology Data 07/05/23 07:35 07/05/23 07:35 Laboratory: Laboratory Results - last 24 hr 07/05/23 07:35: WBC 7.3, RBC 2.82 L, Hgb 9.2 L, Hct 29.4 L, MCV 104.3 H, MCH 32.6 H, MCHC 31.3 L, RDW Std Deviation 76.6 H, RDW Coeff of Jeaneth 20.0 H, Plt Count 167, MPV 9.7, Immature Gran % (Auto) 0.300, Neut % (Auto) 87.3 H, Lymph % (Auto) 7.2 L, Ford % (Auto) 4.5, Eos % (Auto) 0.4, Baso % (Auto) 0.3, Absolute Neuts (auto) 6.4, Absolute Lymphs (auto) 0.53 L, Nucleated RBC % 0, Differential Comment COMMENT, Anisocytosis 1+, Sodium 138, Potassium 3.7, Chloride 98, Carbon Dioxide 38.0 H, Anion Gap 2 L, BUN 35 H, Creatinine 0.70, Estim Creat Clear Calc 48.82, Est GFR (MDRD) Af Amer 103, Est GFR (MDRD) Non-Af 85, BUN/Creatinine Ratio 50.4 H, Glucose 104, Calcium 8.7, Lactate Dehydrogenase 309 H, Total Protein 5.9 L, Globulin 3.0, Albumin/Globulin Ratio 1.0, Fluid Total Protein 2.4 07/05/23 07:58: Fluid Glucose 140 H, Fluid LDH 90 07/05/23 13:35: Fluid Source THORACENTESIS, Fluid Color YELLOW, Fluid Appearance SL CLDY, Fluid Specific Grav 1.018, Fluid WBC 0.424, Fluid RBC 0.003, Fluid Tot Cell Count 0.444 H, Fld Polynuclear WBCs # 0.053, Fld Polynuclear WBCs % 12.5, Fluid Mononuclear WBCs 0.371, Fld Mononuclear WBCs % 87.5, Fluid Neutrophils 17, Fluid Lymphocytes 73, Fluid Monocytes 1, Fld Mesothelial Cells 9, Fl Pathologist Comment May follow, Fluid Comment 2 SEE COMMENT Microbiology: Microbiology 07/05/23 07:58 Fluid - Thoracentesis Fluid Gram Stain - Final 07/03/23 09:45 Blood Culture (Wb) - No Site/Description Given Blood Culture - Preliminary No growth in 48 hours. 07/03/23 09:30 Blood Culture (Wb) - No Site/Description Given Blood Culture - Preliminary No growth in 48 hours. 07/03/23 10:10 Urine, Clean Catch Urine Culture - Final Mixed Gram Pos & Gram Neg Org 07/03/23 10:10 Urine, Clean Catch Legionella Antigen - Final 07/03/23 10:10 Urine, Clean Catch Streptococcus pneumoniae Antigen (M - Final 07/03/23 09:30 Mucosa - Nasopharyngeal SARS-CoV-2, Influenza & RSV (PCR) - Final Radiography Diagnostic Testing: Radiology Impression Chest X-Ray 07/05/23 13:50 IMPRESSION: No evidence of pneumothorax following the right thoracentesis. Electronically Signed: Ben Nguyen MD at 14:09 EDT , Meaningful Use Info Ischemic Stroke Statin Dosing Therapy Reference: STATIN DOSE THERAPY REFERENCE: * Patients > 75 years receive moderate or high dose statin therapy. * Patients 75 years or YOUNGER should receive HIGH intensity statin dose unless contraindicated. You will be required to document reason for non-treatment if statin daily dose does not meet guidelines. HIGH DOSE STATIN THERAPY DAILY Atorvastatin > than or = to 40 mg Rosuvastatin > than or = to 20 mg Amlodipine + Atorvastatin > than or = to 2.5/40 mg Ezetimibe + Simvastatin 10/80 mg Simvastatin 80mg Discharge Plan Admission Admit Date/Time: 07/03/23 08:33 Attending Provider: Jim Urban Primary Care Provider: Heaven Nelson Consulting Providers: Abran Perez; Horace Brumfield; Jose Antonio Serra; Emir Munson; Sid Tucker; Blair Rivera; Lisa Barraza; Tj Del Valle; America Gan; Shirley Hudson; Fly Damon; Callum Bowman; Bo Waller; Uziel Walker; Justino Camara; Oliver Mcneill; Isreal Caceres Discharge Orders/Prescriptions Prescriptions: No Action rosuvastatin 10 mg tablet 10 mg PO DAILY levothyroxine 50 mcg tablet 100 mcg PO DAILY multivitamin with iron 1 EACH tablet 1 ea PO DAILY Patient Comments: SUPPLEMENT Eliquis 5 mg tablet 5 mg PO BID furosemide 40 mg tablet 20 mg PO DAILY acetaminophen [Tylenol] 325 mg capsule 975 mg PO Q6H PRN (Reason: pain (scale score 1-10)) bisacodyl 10 mg suppository 10 mg CO DAILY PRN (Reason: constipation) ipratropium-albuterol 0.5 mg-3 mg(2.5 mg base)/3 mL solution for nebulization 3 ml inhalation Q8H pantoprazole 40 mg tablet,delayed release (DR/EC) 40 mg PO 0600 polyethylene glycol 3350 [Miralax] 17 gram/dose powder 17 g PO BID d-mannose Powder PO TID cholecalciferol (vitamin D3) 25 mcg (1,000 unit) capsule 25 mcg PO DAILY methenamine hippurate 1 gram tablet 1 g PO BID spironolactone 25 mg tablet 50 mg PO DAILY buspirone 5 mg tablet 5 mg PO BID atenolol 50 mg tablet 50 mg PO QHS atenolol 25 mg tablet 25 mg PO .QAM Referrals / Follow Up: Heaven Nelson MD [Primary Care Provider] - Disposition Discharge Orders: Discharge Patient (Routine); Ordered 07/05/23 Ordered By: Dr. Jim Urban Charges/Coding Visit Charges Inpatient E&M: 89348 Disch Hosp >30min
--- NOTE | 2023-07-06 07:33 | PN_ITS ---
Progress Note Patient seen and examined briefly this a.m. She is status post thoracentesis with radiology yesterday, 07/05/2023. Her chest x-ray is reviewed and is much improved from preprocedure and I confirm there are no signs of pneumothorax. She reports that she is feeling much improved and denies any difficulty with breathing. However, she is on oxygen this morning. Her vital capacity per inspiratory spirometer is still just above 500 mL today. I have encouraged her to continue working with this device. She shares that after a Zoom call yesterday she and her family have opted to be transferred to [facility] for TAVR evaluation. She is grateful for the recommendation and her care here in [place]. Surgery will now sign off but remains available to patient if needed and is happy to hear that she will be evaluated for valve replacement.
[2023-07-06] MEDS: Empagliflozin 10 MG Tablet PO (08:51)
[2023-07-06] MEDS: Menthol/Lanolin/Calamine/Znox 113 GM Tube 1 APPLIC TOPICAL ×2 (08:51→21:18)
[2023-07-06] MEDS: guaiFENesin 1,200 MG Tablet 1200 MG PO ×2 (08:51→21:20)
[2023-07-06] MEDS: Carvedilol 3.125 MG TABLET PO ×2 (08:51→21:20)
[2023-07-06] MEDS: Pantoprazole Sodium 40 MG Tablet PO (08:51)
[2023-07-06] MEDS: 0.9% Saline Lock 10 ML Syringe IV ×2 (08:52→17:45)
[2023-07-06] MEDS: Furosemide 40 MG/4 ML Vial IV ×2 (08:52→17:45)
--- NOTE | 2023-07-06 12:16 | PN.CC_ITS ---
Objective Data Objective Data Vital Signs: Vital Signs Last response 3 Temperature 36.6 C 07/06/23 08:35 Temperature Source Temporal 07/06/23 08:35 Pulse Rate 86 07/06/23 08:35 Pulse Strength Normal (2+) 07/06/23 09:06 Respiratory Rate 22 H 07/06/23 08:35 Respiratory Effort Normal 07/06/23 08:45 Respiratory Depth Shallow 07/06/23 08:45 Respiratory Pattern Tachypnea 07/06/23 08:45 Blood Pressure 120/73 07/06/23 08:35 Blood Pressure Mean 88 07/06/23 08:35 Blood Pressure Source Monitor 07/06/23 08:35 Blood Pressure Position Semi-Fowlers 07/06/23 08:35 Blood Pressure Location Left Arm 07/06/23 08:35 Pulse Ox 99 07/06/23 08:35 Oxygen Delivery Method Room Air 07/06/23 08:45 Oxygen Flow Rate (L/min) 2 07/06/23 08:35 Fraction of Inspired Oxygen (FIO2) 93 07/06/23 08:45 I&O: I&O Last 24 Hours 3 07/05/23 07/06/23 07/06/23 23:59 11:59 23:59 Intake Total 300 / 420 720 / 720 Output Total 590 / 2240 1400 / 1850 450 / 1850 Balance -290 / -1820 -680 / -1130 -450 / -1130 I&O: Total Stay 3 07/03/23 08:10 thru 07/06/23 12:04 Intake Total 1360 Output Total 4030 Balance -2670 Current Meds Ordered / Administered: Current meds ordered / Administered 3 Generic Name Dose Route Start Last Admin Trade Name Belkys PRN Reason Stop Dose Admin Acetaminophen 1,000 mg 07/03/23 14:00 07/06/23 06:06 Acetaminophen 500 Mg Tablet PO 1,000 mg Q8 [facility] Administration Calamine/Phenol 1 applic 07/03/23 22:00 07/06/23 08:51 Menthol/Lanolin/Calamine/Znox 113 Gm Tube TOPICAL 1 applic BID [facility] Administration Protocol Carvedilol 3.125 mg 07/04/23 22:00 07/06/23 08:51 Carvedilol 3.125 Mg Tablet PO 3.125 mg BID [facility] Administration Protocol Empagliflozin 10 mg 07/04/23 13:40 07/06/23 08:51 Empagliflozin 10 Mg Tablet PO 10 mg DAILY SHARMIN Administration Furosemide 40 mg 07/03/23 18:00 07/06/23 08:52 Furosemide 40 Mg/4 Ml Vial IV 40 mg BIDLX SHARMIN Administration Protocol Guaifenesin 1,200 mg 07/03/23 10:00 07/06/23 08:51 Guaifenesin 1,200 Mg Tablet PO 1,200 mg BID SHARMIN Administration Sodium Chloride 250 mls @ 15 mls/hr 07/03/23 08:26 IV .[id number] PRN Additional IVPB Infusion Sodium Chloride 250 mls @ 15 mls/hr 07/03/23 08:26 IV .[id number] PRN Saline Flush Nitroglycerin 0.4 mg 07/03/23 08:38 Nitroglycerin (Inpatient Use) 0.4 Mg Tab.Subl SL Q5M PRN CARDIAC/CHEST PAIN Ondansetron HCl 4 mg 07/03/23 08:38 Ondansetron 4 Mg/2 Ml Vial IV Q8H PRN PRN NAUSEA/VOMITING Pantoprazole Sodium 40 mg 07/03/23 10:00 07/06/23 08:51 Pantoprazole Sodium 40 Mg Tablet PO 40 mg DAILY SHARMIN Administration Senna/Docusate Sodium 2 tablet 07/03/23 08:38 Senna/Docusate Sodium 1 Tablet PO BID PRN Constipation Sodium Chloride 10 - 40 ml 07/03/23 08:26 07/06/23 08:52 0.9% Saline Lock 10 Ml Syringe IV 20 ml UD PRN Administration SALINE FLUSH Zolpidem Tartrate 2.5 mg 07/05/23 16:15 07/05/23 20:57 Zolpidem Tartrate 5 Mg Tablet PO 2.5 mg QHS PRN PRN Administration INSOMNIA Lab / Micro Data 07/05/23 07:35 07/06/23 13:05 Labs: Laboratory Results - last 24 hr 07/05/23 07:35: Fluid Total Protein 2.4 07/05/23 07:58: Fluid Glucose 140 H, Fluid LDH 90 07/05/23 13:35: Fluid Source THORACENTESIS, Fluid Color YELLOW, Fluid Appearance SL CLDY, Fluid Specific Grav 1.018, Fluid WBC 0.424, Fluid RBC 0.003, Fluid Tot Cell Count 0.444 H, Fld Polynuclear WBCs # 0.053, Fld Polynuclear WBCs % 12.5, Fluid Mononuclear WBCs 0.371, Fld Mononuclear WBCs % 87.5, Fluid Neutrophils 17, Fluid Lymphocytes 73, Fluid Monocytes 1, Fld Mesothelial Cells 9, Fl Pathologist Comment May follow, Fluid Comment 2 SEE COMMENT Micro: Microbiology 07/05/23 07:58 Fluid - Thoracentesis Fluid Gram Stain - Final 07/05/23 07:58 Fluid - Thoracentesis Fluid Body Fluid Culture - Preliminary No growth-Final to follow 07/03/23 09:45 Blood Culture (Wb) - No Site/Description Given Blood Culture - Preliminary No growth in 48 hours. 07/03/23 09:30 Blood Culture (Wb) - No Site/Description Given Blood Culture - Preliminary No growth in 48 hours. Imaging Radiology Impression Chest X-Ray 07/05/23 13:50 IMPRESSION: No evidence of pneumothorax following the right thoracentesis. Electronically Signed: Ben Nguyen MD at 14:09 EDT , Assessment and Plan . Assessment and plan: Patient seen and examined Chart and data reviewed She is awake and alert, NAD Breathing RA comfortably at rest 600 mL removed 07/05/23 w/ thoracentesis on right pCXR reviewed Awaiting transfer to tertiary center EXAM GEN NAD VS as above HEENT o/p clear NECK no JVD COR irreg CHEST coarse ABD soft EXT minimal edema SHRUTI NF ASSESSMENT/REC 1. Acute respiratory failure - improved 2. Decompensated CHF 3. Chronic valve disease 4. Pleural effusions -supplemental O2 as needed -I/O (-) -add LMWH for VTE ppx -awaiting transfer We will be available as needed. The entirety of this encounter was done via Telemedicine
[2023-07-06 13:23] LABS: Anion Gap 3 (5-15); BUN 28 mg/dL (7-18); BUN/Creat Ratio 25.7 RATIO (10-20); Chloride 93 mmol/L (98-107); Creatinine, Serum 1.09 mg/dL (0.55-1.02); EST Glomerular Filtration Rate 51 mL/min (>60); Est Glom Filt Rate - Afr Amer 61 mL/min (>60); Estimated Creatinine Clearance 35.15 ml/min; Glucose 127 mg/dL (74-106); Potassium 3.3 mmol/L (3.5-5.1); Sodium Level 138 mmol/L (136-145)
--- NOTE | 2023-07-06 13:39 | PCM.PN.HOSP ---
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) Objective Data Objective Data Vital Signs: Vital Signs Temp Pulse Resp BP Pulse Ox O2 Del Method O2 Flow Rate 97.8 F 86 22 H 120/73 99 Room Air 2 07/06/23 08:35 07/06/23 08:35 07/06/23 08:35 07/06/23 08:35 07/06/23 08:35 07/06/23 08:45 07/06/23 08:35 FiO2 93 07/06/23 08:45 Oxygen Flow Rate (L/min) 2 Oxygen Delivery Method Room Air Weight: 146 lb 2.664 oz Body Mass Index (BMI) 25.9 Intake & Output: Intake and Output for Last 24 Hours 07/04/23 07/05/23 07/06/23 23:59 23:59 23:59 Intake Total 340 / 340 300 / 420 720 / 720 Output Total 550 / 550 1390 / 2240 1850 / 1850 Balance -210 / -210 -1090 / -1820 -1130 / -1130 Lab / Micro Data 07/05/23 07:35 07/06/23 13:05 Labs: Laboratory Results - last 24 hr 07/05/23 07:35: Fluid Total Protein 2.4 07/05/23 07:58: Fluid Glucose 140 H, Fluid LDH 90 07/05/23 13:35: Fluid Source THORACENTESIS, Fluid Color YELLOW, Fluid Appearance SL CLDY, Fluid Specific Grav 1.018, Fluid WBC 0.424, Fluid RBC 0.003, Fluid Tot Cell Count 0.444 H, Fld Polynuclear WBCs # 0.053, Fld Polynuclear WBCs % 12.5, Fluid Mononuclear WBCs 0.371, Fld Mononuclear WBCs % 87.5, Fluid Neutrophils 17, Fluid Lymphocytes 73, Fluid Monocytes 1, Fld Mesothelial Cells 9, Fl Pathologist Comment May follow, Fluid Comment 2 SEE COMMENT 07/06/23 13:05: Sodium 138, Potassium 3.3 L, Chloride 93 L, Carbon Dioxide 42.0 H, Anion Gap 3 L, BUN 28 H, Creatinine 1.09 H, Estim Creat Clear Calc 35.15, Est GFR (MDRD) Af Amer 61, Est GFR (MDRD) Non-Af 51 L, BUN/Creatinine Ratio 25.7 H, Glucose 127 H, Calcium 9.0 Micro: Microbiology 07/05/23 07:58 Fluid - Thoracentesis Fluid Gram Stain - Final 07/05/23 07:58 Fluid - Thoracentesis Fluid Body Fluid Culture - Preliminary No growth-Final to follow 07/03/23 09:45 Blood Culture (Wb) - No Site/Description Given Blood Culture - Preliminary No growth in 48 hours. 07/03/23 09:30 Blood Culture (Wb) - No Site/Description Given Blood Culture - Preliminary No growth in 48 hours. 07/03/23 10:10 Urine, Clean Catch Urine Culture - Final Mixed Gram Pos & Gram Neg Org 07/03/23 10:10 Urine, Clean Catch Legionella Antigen - Final 07/03/23 10:10 Urine, Clean Catch Streptococcus pneumoniae Antigen (M - Final 07/03/23 09:30 Mucosa - Nasopharyngeal SARS-CoV-2, Influenza & RSV (PCR) - Final Radiography Diagnostic Testing: Radiology Impression Chest X-Ray 07/05/23 13:50 IMPRESSION: No evidence of pneumothorax following the right thoracentesis. Electronically Signed: Ben Nguyen MD at 14:09 EDT , Physical Exam Narrative Patient on 2 L of oxygen, pulse ox 93%. Comfortable. No acute issues. BiPAP as needed at night. Physical exam General: Alert, Oriented x3, Cooperative HEENT: Atraumatic, PERRLA, EOMI, Normocephalic Oral: Oral mucosa moist. Neck: Supple, No JVD, Negative Carotid Bruits Chest wall/Lungs: Air entry severely diminished in posterior half of both lungs. Bilateral pleural effusion status post thoracocentesis. Cardiovascular: Paced rhythm. Systolic and diastolic murmur present over right second ICS, bioprosthetic AVR Abdomen: Bowel Sounds Present, Soft, Non Tender, Non-Distended : No dysuria. No renal angle tenderness. No suprapubic tenderness. Extremities: Mild bilateral feet edema, Capillary Refill Less than 3 Seconds Skin: No rashes, No breakdown Musculoskeletal: Mild tenderness present in both knees. Has bruise. ROM restricted at knees and hip joints Neurological: Cranial nerves II-XII grossly intact, DTR 2+/4. No acute focal neurological deficit. Psych/Mental Status: Flat affect Assessment & Plan Assessment/Plan (1) Pleural effusion: PLAN: Plan This is a 82-year-old female being admitted directly from acute rehab because of respiratory distress and acute hypoxic and hypercarbic respiratory failure 1. Acute combined hypoxic and hypercarbic respiratory failure probably due to bilateral pleural effusion and atelectasis: Patient is being admitted in ICU on BiPAP. First ABG shows severe respiratory acidosis, pH 7.23, pCO2 86/bicarb 36 on 60% FiO2. Repeat ABG ordered after 1 hour. Policy Writer Sales consulted for further management.Patient clinical status and chest x-ray does not seem clinical deterioration due to respiratory infection but pneumonia workup ordered. 07/03: Repeat ABG shows improvement in acid-base status. 7.33/66/90 on 30% FiO2. Patient was on BiPAP for 3 to 4 hours last night currently on room air. 2. Bilateral pleural effusion with atelectasis due to acute on chronic HFpEF, valvular heart disease, mild to moderate mitral stenosis, 1-2+ TR,Trivial AI RVSP 38 mmHg. Stable appearing bioprosthetic aortic valve apparatus, [employer] tissue valve 2012. On auscultation, seems patient has systolic and diastolic murmur and echo mentioned above is from June 2021: Complete 2D echo ordered. Twelve-lead EKG ordered. 07/03: Repeat echo reviewed. EF 65 to 70%, stage II diastolic dysfunction. Mean transit mitral valve gradient 5.7 mmHg, mild to moderate MS, mild MR, moderate TR, PASP 60 mmHg. Mild to moderate eccentric AI. Patient was evaluated by spool cleaner hand for decompensated heart failure due to valvular heart disease with bilateral pleural effusion.Thoracocentesis ordered. 5/15: Patient on room air to 1 L of oxygen. Yesterday thoracocentesis was canceled as there was proposed plan for Pleurx catheter as told by Dr. Maryuri Lou. Surgeon was consulted. As per the patient, patient had last echo centesis in [facility] about 3 weeks ago. She said that it might cause scarring and there is risk for infection therefore she does not want it. Ultrasound-guided thoracocentesis ordered. She also has Zoom meeting with [facility] cardiology for TAVR procedure. Pneumonia workup negative. 07/05: Mild hypokalemia K3.3. Creatinine 1.09 BUN 28. Patient had 590 mL cloudy keon-colored fluid drained from right pleural cavity. Fluid total protein 2.4, LDH 90. 12.5% polynuclear cells, mononuclear 87.5%., Mesothelial cells 9%. As per lights criteria, fluid is transudative in nature due to HFpEF and valvular heart disease. Patient had Zoom meeting for which patient talked to PANFILO Hollis for Dr. Donald Rueda and he recommended inpatient evaluation for TAVR. After that given clinic transfer line was called and patient was accepted in cardiology service there. Pending bed evaluated patient will be transferred to [facility] for optimal management of valvular heart disease 3. 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 Repeat UA and urine culture ordered. 07/04: Urine culture shows mixed gram-positive and gram-negative organisms. UTI ruled out. Atherosclerotic heart disease without angina, paroxysmal A-fib on Eliquis: On monitor patient has paced rhythm 4. Hypertension, dyslipidemia: Blood pressure is in normal range. 5. GERD and hypothyroidism: Pantoprazole ordered. 6. Hypothyroidism: TSH and free T4 tomorrow a.m. Living will/advanced directive/end of life care: Patient does have living will or advanced directive. Her son is power of building coordinator for health. After discussion of benefits/risks procedures involved with full code, DNR CC arrest and DNR CC, the patient opted for full code. Patient does want artificial life support including intubation, tube feed, ventilator and/chest compression, central venous catheter, vasopressor and DC shock if needed Total time spent in [id number] encounter in discussion of advanced directive 17 minutes. Clinical Impression(s) from Imaging Studies Echocardiogram 07/03/23 08:49 Interpretation Summary The estimated ejection fraction is 65-70 %. Stage 2 diastolic dysfunction. The left atrium is markedly enlarged. Mild toMild (1+) mitral valve insufficiency. Moderate ricuspid valve insufficiency. Pulmonary artery systolic pressure estimated at 62 mmHg. Stable appearing bioprosthetic aortic valve apparatus. Mild to moderate eccentric aortic valve insufficiency. Mildly dilated aortic root. Charges/Coding Visit Charges Inpatient E&M: 18578 Subs Hosp L2
[2023-07-06] MEDS: Potassium Chloride Oral Tablet 20 MEQ 40 MEQ PO (15:29)
[2023-07-06] MEDS: Zolpidem Tartrate 5 MG Tablet 2.5 MG PO (21:19)
[2023-07-07] VITALS (10 sets, daily range): BP systolic 101–133; BP diastolic 40–48; PULSE 78–104; RESP 16–23; TEMP 2.4–36.6; O2SAT 94–99; BMI 25.4
[2023-07-07] MEDS: Acetaminophen 500 MG Tablet 1000 MG PO ×3 (05:01→20:50)
[2023-07-07 05:37] LABS: Absolute Lymphocyte Count 0.81 X10^3/uL (0.83-4.51); Absolute Neutrophil Count 4.4 X10^3/uL (2.0-7.7); Basophil# 0.02 X10^3/uL; Basophil% 0.4 % (0-1); Eosinophil# 0.02 X10^3/uL; Eosinophils% 0.4 % (0-5); Hematocrit 30.5 % (37-47); Hemoglobin 9.5 g/dL (12.0-15.0); Lymphocyte # 0.81 X10^3/ul (0.83-4.51); Lymphocyte % 14.7 % (19-41); Mean Corp Hgb Conc 31.1 g/dL (32-36); Mean Corpuscular Hgb 32.2 pg (27.0-32.0); Mean Corpuscular Volume 103.4 fL (81-99); Mean Platelet Vol. 9.7 fl (6.2-12.0); Monocyte# 0.28 X10^3/uL; Monocyte% 5.1 % (0-10); NRBC Flagged by Analyzer 0 % (0-5); Neutrophil # 4.37 X10^3/uL (2.7-7.7); POSITIVE MORPHOLOGY YES; Platelet Count 163 K/mm3 (150-450); RBC Distribution Width CV 19.4 % (11.6-14.6); RBC Distribution Width SD 73.2 fl (35.1-43.9); Red Blood Count 2.95 M/mm3 (4.2-5.4); White Blood Count 5.5 K/mm3 (4.4-11.0)
[2023-07-07 06:05] LABS: Anion Gap 4 (5-15); BUN 27 mg/dL (7-18); BUN/Creat Ratio 41.6 RATIO (10-20); Calcium,Total 9.2 mg/dL (8.5-10.1); Chloride 92 mmol/L (98-107); Creatinine, Serum 0.65 mg/dL (0.55-1.02); EST Glomerular Filtration Rate 92 mL/min (>60); Est Glom Filt Rate - Afr Amer 112 mL/min (>60); Glucose 103 mg/dL (74-106); Potassium 3.7 mmol/L (3.5-5.1); Sodium Level 137 mmol/L (136-145)
[2023-07-07 06:24] LABS: Differential Indicated SCAN CRITERIA MET
[2023-07-07 09:20] LABS: Differential Comment SCANNED
[2023-07-07 09:21] LABS: Anisocytosis 2+; Macrocytosis 1+; Microcytosis 1+
[2023-07-07] MEDS: Carvedilol 3.125 MG TABLET PO ×2 (10:06→20:49)
[2023-07-07] MEDS: Potassium Chloride Oral Tablet 20 MEQ 40 MEQ PO ×2 (10:06→17:20)
[2023-07-07] MEDS: Pantoprazole Sodium 40 MG Tablet PO (10:06)
[2023-07-07] MEDS: Furosemide 40 MG/4 ML Vial IV ×2 (10:07→17:21)
[2023-07-07] MEDS: guaiFENesin 1,200 MG Tablet 1200 MG PO (10:07)
[2023-07-07] MEDS: Empagliflozin 10 MG Tablet PO (10:07)
[2023-07-07] MEDS: Menthol/Lanolin/Calamine/Znox 113 GM Tube 1 APPLIC TOPICAL ×2 (10:07→20:50)
[2023-07-07] MEDS: Enoxaparin 40 MG/0.4 ML Syringe SC (10:07)
--- NOTE | 2023-07-07 11:31 | PCM.PN.HOSP ---
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) Objective Data Objective Data Vital Signs: Vital Signs Temp Pulse Resp BP Pulse Ox O2 Del Method O2 Flow Rate 97.9 F 98 23 H 111/40 L 94 Room Air 2 07/07/23 08:49 07/07/23 08:49 07/07/23 08:49 07/07/23 08:49 07/07/23 08:49 07/07/23 08:49 07/06/23 15:18 FiO2 30 07/07/23 04:30 Oxygen Flow Rate (L/min) 2 Oxygen Delivery Method Room Air Weight: 143 lb 8.335 oz Body Mass Index (BMI) 25.4 Intake & Output: Intake and Output for Last 24 Hours 07/05/23 07/06/23 07/07/23 23:59 23:59 23:59 Intake Total 300 / 420 1200 / 1500 500 / 500 Output Total 1390 / 2240 2150 / 3150 1500 / 1500 Balance -1090 / -1820 -950 / -1650 -1000 / -1000 Lab / Micro Data 07/07/23 05:15 07/07/23 05:15 Labs: Laboratory Results - last 24 hr 07/06/23 13:05: Sodium 138, Potassium 3.3 L, Chloride 93 L, Carbon Dioxide 42.0 H, Anion Gap 3 L, BUN 28 H, Creatinine 1.09 H, Estim Creat Clear Calc 35.15, Est GFR (MDRD) Af Amer 61, Est GFR (MDRD) Non-Af 51 L, BUN/Creatinine Ratio 25.7 H, Glucose 127 H, Calcium 9.0 07/07/23 05:15: WBC 5.5, RBC 2.95 L, Hgb 9.5 L, Hct 30.5 L, MCV 103.4 H, MCH 32.2 H, MCHC 31.1 L, RDW Std Deviation 73.2 H, RDW Coeff of Jeaneth 19.4 H, Plt Count 163, MPV 9.7, Immature Gran % (Auto) 0.400, Neut % (Auto) 79.0 H, Lymph % (Auto) 14.7 L, Ralls % (Auto) 5.1, Eos % (Auto) 0.4, Baso % (Auto) 0.4, Absolute Neuts (auto) 4.4, Absolute Lymphs (auto) 0.81 L, Nucleated RBC % 0, Differential Comment SCANNED, Anisocytosis 2+, Microcytosis 1+, Macrocytosis 1+, Sodium 137, Potassium 3.7, Chloride 92 L, Carbon Dioxide 41.0 H, Anion Gap 4 L, BUN 27 H, Creatinine 0.65, Estim Creat Clear Calc 47.90, Est GFR (MDRD) Af Amer 112, Est GFR (MDRD) Non-Af 92, BUN/Creatinine Ratio 41.6 H, Glucose 103, Calcium 9.2 Micro: Microbiology 07/05/23 07:58 Fluid - Thoracentesis Fluid Gram Stain - Final 07/05/23 07:58 Fluid - Thoracentesis Fluid Body Fluid Culture - Preliminary No growth-Final to follow 07/05/23 07:58 Fluid - Thoracentesis Fluid Anaerobic Culture - Preliminary No growth in 48 hours. 07/03/23 09:45 Blood Culture (Wb) - No Site/Description Given Blood Culture - Preliminary No growth in 48 hours. 07/03/23 09:30 Blood Culture (Wb) - No Site/Description Given Blood Culture - Preliminary No growth in 48 hours. 07/03/23 10:10 Urine, Clean Catch Urine Culture - Final Mixed Gram Pos & Gram Neg Org 07/03/23 10:10 Urine, Clean Catch Legionella Antigen - Final 07/03/23 10:10 Urine, Clean Catch Streptococcus pneumoniae Antigen (M - Final 07/03/23 09:30 Mucosa - Nasopharyngeal SARS-CoV-2, Influenza & RSV (PCR) - Final Physical Exam Narrative Patient is 94% on room air. Comfortable. No acute issues. BiPAP as needed at night. Physical exam General: Alert, Oriented x3, Cooperative HEENT: Atraumatic, PERRLA, EOMI, Normocephalic Oral: Oral mucosa moist. Neck: Supple, No JVD, Negative Carotid Bruits Chest wall/Lungs: Air entry severely diminished in posterior half of both lungs. Bilateral pleural effusion status post thoracocentesis. Cardiovascular: Paced rhythm. Systolic and diastolic murmur present over right second ICS, bioprosthetic AVR Abdomen: Bowel Sounds Present, Soft, Non Tender, Non-Distended : No dysuria. No renal angle tenderness. No suprapubic tenderness. Extremities: Mild bilateral feet edema, Capillary Refill Less than 3 Seconds Skin: No rashes, No breakdown Musculoskeletal: Mild tenderness present in both knees. Has bruise. ROM restricted at knees and hip joints Neurological: Cranial nerves II-XII grossly intact, DTR 2+/4. No acute focal neurological deficit. Psych/Mental Status: Flat affect Assessment & Plan Assessment/Plan (1) Pleural effusion: PLAN: Plan This is a 82-year-old female being admitted directly from acute rehab because of respiratory distress and acute hypoxic and hypercarbic respiratory failure 1. Acute combined hypoxic and hypercarbic respiratory failure probably due to bilateral pleural effusion and atelectasis: Patient is being admitted in ICU on BiPAP. First ABG shows severe respiratory acidosis, pH 7.23, pCO2 86/bicarb 36 on 60% FiO2. Repeat ABG ordered after 1 hour. Emu Farmer consulted for further management.Patient clinical status and chest x-ray does not seem clinical deterioration due to respiratory infection but pneumonia workup ordered. 07/03: Repeat ABG shows improvement in acid-base status. 7.33/66/90 on 30% FiO2. Patient was on BiPAP for 3 to 4 hours last night currently on room air. 2. Bilateral pleural effusion with atelectasis due to acute on chronic HFpEF, valvular heart disease, mild to moderate mitral stenosis, 1-2+ TR,Trivial AI RVSP 38 mmHg. Stable appearing bioprosthetic aortic valve apparatus, [employer] tissue valve 2012. On auscultation, seems patient has systolic and diastolic murmur and echo mentioned above is from June 2021: Complete 2D echo ordered. Twelve-lead EKG ordered. 07/03: Repeat echo reviewed. EF 65 to 70%, stage II diastolic dysfunction. Mean transit mitral valve gradient 5.7 mmHg, mild to moderate MS, mild MR, moderate TR, PASP 60 mmHg. Mild to moderate eccentric AI. Patient was evaluated by truck rental manager for decompensated heart failure due to valvular heart disease with bilateral pleural effusion.Thoracocentesis ordered. 07/04: Patient on room air to 1 L of oxygen. Yesterday thoracocentesis was canceled as there was proposed plan for Pleurx catheter as told by Dr. Maryuri Lou. Surgeon was consulted. As per the patient, patient had last echo centesis in [facility] about 3 weeks ago. She said that it might cause scarring and there is risk for infection therefore she does not want it. Ultrasound-guided thoracocentesis ordered. She also has Zoom meeting with [facility] cardiology for TAVR procedure. Pneumonia workup negative. 07/05: Mild hypokalemia K3.3. Creatinine 1.09 BUN 28. Patient had 590 mL cloudy keon-colored fluid drained from right pleural cavity. Fluid total protein 2.4, LDH 90. 12.5% polynuclear cells, mononuclear 87.5%., Mesothelial cells 9%. As per lights criteria, fluid is transudative in nature due to HFpEF and valvular heart disease. Patient had Zoom meeting for which patient talked to PANFILO Hollis for Dr. Donald Rueda and he recommended inpatient evaluation for TAVR. After that given clinic transfer line was called and patient was accepted in cardiology service there. Pending bed evaluated patient will be transferred to [facility] for optimal management of valvular heart disease 07/06: Serum potassium is 3.7. Rest of the medications to continue.Waiting for transfer to [facility]. PCU status. 3. Dysuria, UTI ruled out: Last urine culture on 07/02/2023 shows GNR lactose service engineer less than 1000 colonies. Repeat UA and urine culture ordered. 07/04: Urine culture shows mixed gram-positive and gram-negative organisms. UTI ruled out. Atherosclerotic heart disease without angina, paroxysmal A-fib on Eliquis: On monitor patient has paced rhythm 4. Hypertension, dyslipidemia: Blood pressure is in normal range. 5. GERD and hypothyroidism: Pantoprazole ordered. 6. Hypothyroidism: TSH and free T4 are 3.51 and 1.03 in normal range. Living will/advanced directive/end of life care: Patient does have living will or advanced directive. Her son is power of privacy attorney for health. After discussion of benefits/risks procedures involved with full code, DNR CC arrest and DNR CC, the patient opted for full code. Patient does want artificial life support including intubation, tube feed, ventilator and/chest compression, central venous catheter, vasopressor and DC shock if needed Total time spent in [id number] encounter in discussion of advanced directive 17 minutes. Clinical Impression(s) from Imaging Studies Echocardiogram 07/03/23 08:49 Interpretation Summary The estimated ejection fraction is 65-70 %. Stage 2 diastolic dysfunction. The left atrium is markedly enlarged. Mild toMild (1+) mitral valve insufficiency. Moderate ricuspid valve insufficiency. Pulmonary artery systolic pressure estimated at 62 mmHg. Stable appearing bioprosthetic aortic valve apparatus. Mild to moderate eccentric aortic valve insufficiency. Mildly dilated aortic root. Charges/Coding Visit Charges Inpatient E&M: 70569 Subs Hosp L2
[2023-07-07 12:03] LABS: Pathologist Comment/Body Fluid Reviewed
[2023-07-07] MEDS: 0.9% Saline Lock 10 ML Syringe IV (17:24)
[2023-07-07] MEDS: Zolpidem Tartrate 5 MG Tablet 2.5 MG PO (22:01)
[2023-07-08] VITALS (9 sets, daily range): BP systolic 96–137; BP diastolic 36–48; PULSE 84–104; RESP 16–30; TEMP 36.6–37; O2SAT 93–96; BMI 25.6
[2023-07-08] MEDS: Acetaminophen 500 MG Tablet 1000 MG PO ×2 (05:53→16:18)
--- NOTE | 2023-07-08 06:09 | NURSING ---
patient states it vázquez when she urinates and only urinates a little each time, urine specimen obtained and sent to lab for culture.
[2023-07-08 07:17] LABS: Absolute Lymphocyte Count 0.78 X10^3/uL (0.83-4.51); Absolute Neutrophil Count 5.3 X10^3/uL (2.0-7.7); Basophil# 0.02 X10^3/uL; Basophil% 0.3 % (0-1); Eosinophil# 0.03 X10^3/uL; Eosinophils% 0.5 % (0-5); Hematocrit 32.4 % (37-47); Hemoglobin 9.9 g/dL (12.0-15.0); Lymphocyte # 0.78 X10^3/ul (0.83-4.51); Mean Corp Hgb Conc 30.6 g/dL (32-36); Mean Corpuscular Hgb 31.7 pg (27.0-32.0); Mean Corpuscular Volume 103.8 fL (81-99); Mean Platelet Vol. 9.5 fl (6.2-12.0); Monocyte# 0.35 X10^3/uL; Monocyte% 5.4 % (0-10); NRBC Flagged by Analyzer 0 % (0-5); Neutrophil # 5.29 X10^3/uL (2.7-7.7); Neutrophil % 81.3 % (47-70); POSITIVE MORPHOLOGY YES; Platelet Count 181 K/mm3 (150-450); RBC Distribution Width CV 19.2 % (11.6-14.6); RBC Distribution Width SD 72.3 fl (35.1-43.9); Red Blood Count 3.12 M/mm3 (4.2-5.4); White Blood Count 6.5 K/mm3 (4.4-11.0)
[2023-07-08 07:29] LABS: Differential Indicated SCAN CRITERIA MET
[2023-07-08 08:02] LABS: Anion Gap 3 (5-15); BUN 24 mg/dL (7-18); BUN/Creat Ratio 37.2 RATIO (10-20); Calcium,Total 9.5 mg/dL (8.5-10.1); Chloride 96 mmol/L (98-107); Creatinine, Serum 0.65 mg/dL (0.55-1.02); EST Glomerular Filtration Rate 93 mL/min (>60); Est Glom Filt Rate - Afr Amer 112 mL/min (>60); Glucose 107 mg/dL (74-106); Sodium Level 138 mmol/L (136-145)
[2023-07-08] MEDS: Potassium Chloride Oral Tablet 20 MEQ 40 MEQ PO ×2 (08:23→17:31)
[2023-07-08] MEDS: Enoxaparin 40 MG/0.4 ML Syringe SC (08:24)
[2023-07-08] MEDS: Pantoprazole Sodium 40 MG Tablet PO (08:24)
[2023-07-08] MEDS: Carvedilol 3.125 MG TABLET PO ×2 (08:24→21:49)
[2023-07-08] MEDS: Empagliflozin 10 MG Tablet PO (08:25)
[2023-07-08] MEDS: Menthol/Lanolin/Calamine/Znox 113 GM Tube 1 APPLIC TOPICAL (08:25)
--- NOTE | 2023-07-08 09:13 | PN.HOSP_ITS ---
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) Objective Data Objective Data Vital Signs: Vital Signs Temp Pulse Resp BP Pulse Ox O2 Del Method O2 Flow Rate 98 F 91 16 137/48 H 96 Bi-pap 2 07/08/23 02:30 07/08/23 02:30 07/08/23 02:30 07/08/23 02:30 07/08/23 07:59 07/08/23 07:59 07/06/23 15:18 FiO2 21 07/08/23 07:59 Oxygen Flow Rate (L/min) 2 Oxygen Delivery Method Bi-pap Weight: 144 lb 13.499 oz Body Mass Index (BMI) 25.6 Intake & Output: Intake and Output for Last 24 Hours 07/06/23 07/07/23 07/08/23 23:59 23:59 23:59 Intake Total 1200 / 1500 500 / 500 Output Total 2150 / 3150 1900 / 1900 Balance -950 / -1650 -1400 / -1400 Lab / Micro Data 07/08/23 06:15 07/08/23 06:33 Labs: Laboratory Results - last 24 hr 07/05/23 13:35: Fl Pathologist Comment Reviewed 07/07/23 05:15: Differential Comment SCANNED, Anisocytosis 2+, Microcytosis 1+, Macrocytosis 1+ 07/08/23 06:15: WBC 6.5, RBC 3.12 L, Hgb 9.9 L, Hct 32.4 L, MCV 103.8 H, MCH 31.7, MCHC 30.6 L, RDW Std Deviation 72.3 H, RDW Coeff of Jeaneth 19.2 H, Plt Count 181, MPV 9.5, Immature Gran % (Auto) 0.500, Neut % (Auto) 81.3 H, Lymph % (Auto) 12.0 L, Armstrong % (Auto) 5.4, Eos % (Auto) 0.5, Baso % (Auto) 0.3, Absolute Neuts (auto) 5.3, Absolute Lymphs (auto) 0.78 L, Nucleated RBC % 0 07/08/23 06:33: Sodium 138, Potassium 4.0, Chloride 96 L, Carbon Dioxide 39.0 H, Anion Gap 3 L, BUN 24 H, Creatinine 0.65, Estim Creat Clear Calc 47.70, Est GFR (MDRD) Af Amer 112, Est GFR (MDRD) Non-Af 93, BUN/Creatinine Ratio 37.2 H, G lucose 107 H, Calcium 9.5 Micro: Microbiology 07/05/23 07:58 Fluid - Thoracentesis Fluid Gram Stain - Final 07/05/23 07:58 Fluid - Thoracentesis Fluid Body Fluid Culture - Preliminary No growth-Final to follow 07/05/23 07:58 Fluid - Thoracentesis Fluid Anaerobic Culture - Preliminary No growth in 48 hours. 07/03/23 09:45 Blood Culture (Wb) - No Site/Description Given Blood Culture - Preliminary No growth in 48 hours. 07/03/23 09:30 Blood Culture (Wb) - No Site/Description Given Blood Culture - Preliminary No growth in 48 hours. 07/03/23 10:10 Urine, Clean Catch Urine Culture - Final Mixed Gram Pos & Gram Neg Org 07/03/23 10:10 Urine, Clean Catch Legionella Antigen - Final 07/03/23 10:10 Urine, Clean Catch Streptococcus pneumoniae Antigen (M - Final 07/03/23 09:30 Mucosa - Nasopharyngeal SARS-CoV-2, Influenza & RSV (PCR) - Final Physical Exam Narrative Patient complain of burning pain, increased frequency and urgency. She is on methenamine 1 g twice daily regimen. UA with urine culture ordered. Empirically started on ceftriaxone. BiPAP as needed at night. Physical exam General: Alert, Oriented x3, Cooperative HEENT: Atraumatic, PERRLA, EOMI, Normocephalic Oral: Oral mucosa moist. Neck: Supple, No JVD, Negative Carotid Bruits Chest wall/Lungs: Air entry severely diminished in posterior half of both lungs. Bilateral pleural effusion status post thoracocentesis. Cardiovascular: Paced rhythm. Systolic and diastolic murmur present over right second ICS, bioprosthetic AVR Abdomen: Bowel Sounds Present, Soft, Non Tender, Non-Distended :No renal angle tenderness. No suprapubic tenderness. Extremities: Mild bilateral feet edema, Capillary Refill Less than 3 Seconds Skin: No rashes, No breakdown Musculoskeletal: Mild tenderness present in both knees. Has bruise. ROM restricted at knees and hip joints Neurological: Cranial nerves II-XII grossly intact, DTR 2+/4. No acute focal neurological deficit. Psych/Mental Status: Flat affect Assessment & Plan Assessment/Plan (1) Pleural effusion: PLAN: Plan This is a 82-year-old female being admitted directly from acute rehab because of respiratory distress and acute hypoxic and hypercarbic respiratory failure 1. Acute combined hypoxic and hypercarbic respiratory failure probably due to bilateral pleural effusion and atelectasis: Patient is being admitted in ICU on BiPAP. First ABG shows severe respiratory acidosis, pH 7.23, pCO2 86/bicarb 36 on 60% FiO2. Repeat ABG ordered after 1 hour. Etl Lead consulted for further management.Patient clinical status and chest x-ray does not seem clinical deterioration due to respiratory infection but pneumonia workup ordered. 07/03: Repeat ABG shows improvement in acid-base status. 7.33/66/90 on 30% FiO2. Patient was on BiPAP for 3 to 4 hours last night currently on room air. 2. Bilateral pleural effusion with atelectasis due to acute on chronic HFpEF, valvular heart disease, mild to moderate mitral stenosis, 1-2+ TR,Trivial AI RVSP 38 mmHg. Stable appearing bioprosthetic aortic valve apparatus, [place] [employer] tissue valve 2012. On auscultation, seems patient has systolic and diastolic murmur and echo mentioned above is from June 2021: Complete 2D echo ordered. Twelve-lead EKG ordered. 07/03: Repeat echo reviewed. EF 65 to 70%, stage II diastolic dysfunction. Mean transit mitral valve gradient 5.7 mmHg, mild to moderate MS, mild MR, moderate TR, PASP 60 mmHg. Mild to moderate eccentric AI. Patient was evaluated by oracle business intelligence developer for decompensated heart failure due to valvular heart disease with bilateral pleural effusion.Thoracocentesis ordered. 07/04: Patient on room air to 1 L of oxygen. Yesterday thoracocentesis was canceled as there was proposed plan for Pleurx catheter as told by Dr. Maryuri Lou. Surgeon was consulted. As per the patient, patient had last echo centesis in [facility] about 3 weeks ago. She said that it might cause scarring and there is risk for infection therefore she does not want it. Ultrasound-guided thoracocentesis ordered. She also has Zoom meeting with [facility] cardiology for TAVR procedure. Pneumonia workup negative. 07/05: Mild hypokalemia K3.3. Creatinine 1.09 BUN 28. Patient had 590 mL cloudy keon-colored fluid drained from right pleural cavity. Fluid total protein 2.4, LDH 90. 12.5% polynuclear cells, mononuclear 87.5%., Mesothelial cells 9%. As per lights criteria, fluid is transudative in nature due to HFpEF and valvular heart disease. Patient had Zoom meeting for which patient talked to PANFILO Hollis for Dr. Donald Rueda and he recommended inpatient evaluation for TAVR. After that given clinic transfer line was called and patient was accepted in cardiology service there. Pending bed evaluated patient will be transferred to [facility] for optimal management of valvular heart disease 07/06: Serum potassium is 3.7. Rest of the medications to continue.Waiting for transfer to [facility] PCU status. 07/07: Electrolytes in normal range. Continue diuretics. Still awaiting for bed for transfer to [facility] 3. 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 Repeat UA and urine culture ordered. 07/04: Urine culture shows mixed gram-positive and gram-negative organisms. UTI ruled out. 07/07: Patient did not complain of burning pain/dysuria, increase frequency and urgency. Methenamine 1 g twice daily regimen. UA with urine culture ordered. Empirically started on IV ceftriaxone. Atherosclerotic heart disease without angina, paroxysmal A-fib on Eliquis: On monitor patient has paced rhythm 4. Hypertension, dyslipidemia: Blood pressure is in normal range. 5. GERD and hypothyroidism: Pantoprazole ordered. 6. Hypothyroidism: TSH and free T4 are 3.51 and 1.03 in normal range. Living will/advanced directive/end of life care: Patient does have living will or advanced directive. Her son is power of state's attorney for health. After discussion of benefits/risks procedures involved with full code, DNR CC arrest and DNR CC, the patient opted for full code. Patient does want artificial life support including intubation, tube feed, ventilator and/chest compression, central venous catheter, vasopressor and DC shock if needed Clinical Impression(s) from Imaging Studies Echocardiogram 07/03/23 08:49 Interpretation Summary The estimated ejection fraction is 65-70 %. Stage 2 diastolic dysfunction. The left atrium is markedly enlarged. Mild toMild (1+) mitral valve insufficiency. Moderate ricuspid valve insufficiency. Pulmonary artery systolic pressure estimated at 62 mmHg. Stable appearing bioprosthetic aortic valve apparatus. Mild to moderate eccentric aortic valve insufficiency. Mildly dilated aortic root. Charges/Coding Visit Charges Inpatient E&M: 48274 Subs Hosp L2
[2023-07-08 09:28] LABS: Anisocytosis 1+
[2023-07-08] MEDS: Methenamine Hippurate 1 GM Tablet PO ×2 (09:38→21:49)
[2023-07-08] MEDS: Furosemide 40 MG/4 ML Vial IV ×2 (09:38→17:32)
[2023-07-08] MEDS: Ceftriaxone 1 GM/50 ML BAG IV (10:14)
[2023-07-08 11:16] LABS: Mucous, Urine 0 SEEN /hpf (<or=2+)
[2023-07-08 11:18] LABS: Color, Urine Yellow (Yellow); Glucose, Dipstick Normal (Normal); Ketone-Dipstick Negative (Negative); Leukocyte Esterase-Dipstick 500 /ul (Negative); Nitrite-Dipstick Negative (Negative); Occult Blood-Urine 150 /ul (Negative); Protein-Dipstick 100 mg/dl (Negative); Specific Gravity, Urine 1.005 (1.002-1.030); Urine Bilirubin Dipstick Negative (Negative); Urine Clarity Cloudy (Clear); Urine Urobilinogen 1 mg/dl (Normal)
[2023-07-08 11:25] LABS: Bacteria 3+ /hpf (None Seen); Red Blood Cells-Urine 10-25 SEEN /hpf (0-5); Squamous Epithelial Cells - UA 0-5 SEEN /hpf (5-10); White Blood Cells 25-50 SEEN /hpf (0-5)
[2023-07-08] MEDS: 0.9% Saline Lock 10 ML Syringe IV (17:32)
[2023-07-08] MEDS: Zolpidem Tartrate 5 MG Tablet 2.5 MG PO (21:49)
[2023-07-09] VITALS (8 sets, daily range): BP systolic 104–120; BP diastolic 39–42; PULSE 87–96; RESP 16–34; TEMP 36.1–36.7; O2SAT 92–100; BMI 25.4
[2023-07-09 07:17] LABS: Absolute Lymphocyte Count 1.12 X10^3/uL (0.83-4.51); Absolute Neutrophil Count 6.2 X10^3/uL (2.0-7.7); Basophil# 0.02 X10^3/uL; Basophil% 0.3 % (0-1); Eosinophil# 0.03 X10^3/uL; Eosinophils% 0.4 % (0-5); Hematocrit 35.6 % (37-47); Lymphocyte # 1.12 X10^3/ul (0.83-4.51); Lymphocyte % 14.5 % (19-41); Mean Corp Hgb Conc 30.9 g/dL (32-36); Mean Corpuscular Volume 103.5 fL (81-99); Mean Platelet Vol. 9.5 fl (6.2-12.0); Monocyte% 3.9 % (0-10); NRBC Flagged by Analyzer 0 % (0-5); Neutrophil # 6.22 X10^3/uL (2.7-7.7); Neutrophil % 80.5 % (47-70); POSITIVE MORPHOLOGY YES; Platelet Count 200 K/mm3 (150-450); RBC Distribution Width CV 19.2 % (11.6-14.6); RBC Distribution Width SD 72.8 fl (35.1-43.9); Red Blood Count 3.44 M/mm3 (4.2-5.4); White Blood Count 7.7 K/mm3 (4.4-11.0)
[2023-07-09 07:21] LABS: Differential Indicated SCAN CRITERIA MET
[2023-07-09 07:37] LABS: Anion Gap 2 (5-15); BUN 24 mg/dL (7-18); BUN/Creat Ratio 30.9 RATIO (10-20); Calcium,Total 9.6 mg/dL (8.5-10.1); Chloride 94 mmol/L (98-107); Creatinine, Serum 0.78 mg/dL (0.55-1.02); EST Glomerular Filtration Rate 75 mL/min (>60); Est Glom Filt Rate - Afr Amer 91 mL/min (>60); Estimated Creatinine Clearance 47.57 ml/min; Glucose 108 mg/dL (74-106); Sodium Level 136 mmol/L (136-145)
[2023-07-09 08:02] LABS: Anisocytosis 1+
[2023-07-09] MEDS: Ceftriaxone 1 GM/50 ML BAG IV (09:03)
[2023-07-09] MEDS: Pantoprazole Sodium 40 MG Tablet PO (09:03)
[2023-07-09] MEDS: Enoxaparin 40 MG/0.4 ML Syringe SC (09:04)
[2023-07-09] MEDS: Carvedilol 3.125 MG TABLET PO ×2 (09:04→21:47)
[2023-07-09] MEDS: Menthol/Lanolin/Calamine/Znox 113 GM Tube 1 APPLIC TOPICAL ×2 (09:05→21:47)
[2023-07-09] MEDS: Empagliflozin 10 MG Tablet PO (09:05)
[2023-07-09] MEDS: Methenamine Hippurate 1 GM Tablet PO ×2 (09:05→21:47)
[2023-07-09] MEDS: Furosemide 40 MG/4 ML Vial IV ×2 (10:42→18:14)
--- NOTE | 2023-07-09 12:56 | PN.HOSP_ITS ---
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) Objective Data Objective Data Vital Signs: Vital Signs Temp Pulse Resp BP Pulse Ox O2 Del Method O2 Flow Rate 98.1 F 94 18 104/39 L 100 Room Air 2 07/09/23 11:39 07/09/23 11:39 07/09/23 11:39 07/09/23 11:39 07/09/23 11:39 07/09/23 11:39 07/06/23 15:18 FiO2 21 07/09/23 03:06 Oxygen Flow Rate (L/min) 2 Oxygen Delivery Method Room Air Weight: 143 lb 15.39 oz Body Mass Index (BMI) 25.4 Intake & Output: Intake and Output for Last 24 Hours 07/07/23 07/08/23 07/09/23 23:59 23:59 23:59 Intake Total 500 / 500 1350 / 1350 150 / 150 Output Total 1900 / 1900 900 / 900 Balance -1400 / -1400 450 / 450 150 / 150 Lab / Micro Data 07/09/23 06:45 07/09/23 06:45 Labs: Laboratory Results - last 24 hr 07/09/23 06:45: WBC 7.7, RBC 3.44 L, Hgb 11.0 L, Hct 35.6 L, MCV 103.5 H, MCH 32.0, MCHC 30.9 L, RDW Std Deviation 72.8 H, RDW Coeff of Jeaneth 19.2 H, Plt Count 200, MPV 9.5, Immature Gran % (Auto) 0.400, Neut % (Auto) 80.5 H, Lymph % (Auto) 14.5 L, Josephine % (Auto) 3.9, Eos % (Auto) 0.4, Baso % (Auto) 0.3, Absolute Neuts (auto) 6.2, Absolute Lymphs (auto) 1.12, Nucleated RBC % 0, Anisocytosis 1+, Sodium 136, Potassium 4.0, Chloride 94 L, Carbon Dioxide 40.0 H, Anion Gap 2 L, BUN 24 H, Creatinine 0.78, Estim Creat Clear Calc 47.57, Est GFR (MDRD) Af Amer 91, Est GFR (MDRD) Non-Af 75, BUN/Creatinine Ratio 30.9 H, Glucose 108 H, Calcium 9.6 Micro: Microbiology 07/08/23 06:00 Urine, Clean Catch Urine Culture - Preliminary Presumptive E. coli 07/05/23 07:58 Fluid - Thoracentesis Fluid Gram Stain - Final 07/05/23 07:58 Fluid - Thoracentesis Fluid Body Fluid Culture - Final No growth aerobically. 07/05/23 07:58 Fluid - Thoracentesis Fluid Anaerobic Culture - Preliminary No growth in 48 hours. 07/03/23 09:45 Blood Culture (Wb) - No Site/Description Given Blood Culture - Final No growth in 5 days. 07/03/23 09:30 Blood Culture (Wb) - No Site/Description Given Blood Culture - Final No growth in 5 days. 07/03/23 10:10 Urine, Clean Catch Urine Culture - Final Mixed Gram Pos & Gram Neg Org 07/03/23 10:10 Urine, Clean Catch Legionella Antigen - Final 07/03/23 10:10 Urine, Clean Catch Streptococcus pneumoniae Antigen (M - Final 07/03/23 09:30 Mucosa - Nasopharyngeal SARS-CoV-2, Influenza & RSV (PCR) - Final Physical Exam Narrative Patient still complain of burning pain, increased frequency and urgency, empirically on IV ceftriaxone. She is on methenamine 1 g twice daily regimen. BiPAP as needed at night. Physical exam General: Alert, Oriented x3, Cooperative HEENT: Atraumatic, PERRLA, EOMI, Normocephalic Oral: Oral mucosa moist. Neck: Supple, No JVD, Negative Carotid Bruits Chest wall/Lungs: Air entry severely diminished in posterior half of both lungs. Bilateral pleural effusion status post thoracocentesis. Cardiovascular: Paced rhythm. Systolic and diastolic murmur present over right second ICS, bioprosthetic AVR Abdomen: Bowel Sounds Present, Soft, Non Tender, Non-Distended : Mild dysuria present no renal angle tenderness. No suprapubic tenderness. Extremities: Mild bilateral feet edema, Capillary Refill Less than 3 Seconds Skin: No rashes, No breakdown Musculoskeletal: Chronic tenderness in the knees, arthritis. Has bruise. ROM restricted at knees and hip joints Neurological: Cranial nerves II-XII grossly intact, DTR 2+/4. No acute focal neurological deficit. Psych/Mental Status: Flat affect Assessment & Plan Assessment/Plan (1) Pleural effusion: PLAN: Plan This is a 82-year-old female being admitted directly from acute rehab because of respiratory distress and acute hypoxic and hypercarbic respiratory failure 1. Acute combined hypoxic and hypercarbic respiratory failure probably due to bilateral pleural effusion and atelectasis: Patient is being admitted in ICU on BiPAP. First ABG shows severe respiratory acidosis, pH 7.23, pCO2 86/bicarb 36 on 60% FiO2. Repeat ABG ordered after 1 hour. Top Lift Cutter consulted for further management.Patient clinical status and chest x-ray does not seem clinical deterioration due to respiratory infection but pneumonia workup ordered. 07/03: Repeat ABG shows improvement in acid-base status. 7.33/66/90 on 30% FiO2. Patient was on BiPAP for 3 to 4 hours last night currently on room air. 07/08: Acute hypoxic and hypercarbic respiratory failure resolved 2. Bilateral pleural effusion with atelectasis due to acute on chronic HFpEF, valvular heart disease, mild to moderate mitral stenosis, 1-2+ TR,Trivial AI RVSP 38 mmHg. Stable appearing bioprosthetic aortic valve apparatus, [place] [employer] tissue valve 2012. On auscultation, seems patient has systolic and diastolic murmur and echo mentioned above is from June 2021: Complete 2D echo ordered. Twelve-lead EKG ordered. 07/03: Repeat echo reviewed. EF 65 to 70%, stage II diastolic dysfunction. Mean transit mitral valve gradient 5.7 mmHg, mild to moderate MS, mild MR, moderate TR, PASP 60 mmHg. Mild to moderate eccentric AI. Patient was evaluated by engineering inspection assistant for decompensated heart failure due to valvular heart disease with bilateral pleural effusion.Thoracocentesis ordered. 07/04: Patient on room air to 1 L of oxygen. Yesterday thoracocentesis was canceled as there was proposed plan for Pleurx catheter as told by Dr. Maryuri Lou. Surgeon was consulted. As per the patient, patient had last echo centesis in [facility] about 3 weeks ago. She said that it might cause scarring and there is risk for infection therefore she does not want it. Ultrasound-guided thoracocentesis ordered. She also has Zoom meeting with [facility] cardiology for TAVR procedure. Pneumonia workup negative. 07/05: Mild hypokalemia K3.3. Creatinine 1.09 BUN 28. Patient had 590 mL cloudy keon-colored fluid drained from right pleural cavity. Fluid total protein 2.4, LDH 90. 12.5% polynuclear cells, mononuclear 87.5%., Mesothelial cells 9%. As per lights criteria, fluid is transudative in nature due to HFpEF and valvular heart disease. Patient had Zoom meeting for which patient talked to PANFILO Hollis for Dr. Donald Rueda and he recommended inpatient evaluation for TAVR. After that given clinic transfer line was called and patient was accepted in cardiology service there. Pending bed evaluated patient will be transferred to [facility] for optimal management of valvular heart disease 07/06: Serum potassium is 3.7. Rest of the medications to continue.Waiting for transfer to [facility]. PCU status. 07/07: Electrolytes in normal range. Continue diuretics. Still awaiting for bed for transfer to [facility] 07/08: Patient still waiting for bed. No bed available on file. 3. Dysuria, possible E. coli UTI: Last urine culture on 07/02/2023 shows GNR lactose engineering and scientific programmer less than 1000 colonies. Repeat UA and urine culture ordered. 07/04: Urine culture shows mixed gram-positive and gram-negative organisms. UTI ruled out. 07/07: Patient did not complain of burning pain/dysuria, increase frequency and urgency. Methenamine 1 g twice daily regimen. UA with urine culture ordered. Empirically started on IV ceftriaxone. 07/08: UA shows LE 500, nitrite negative, WBC 25-50 cells, RBC 10-25 cells. Prelim urine culture growing E. coli more than 100,000 colonies. Continue IV ceftriaxone. Atherosclerotic heart disease without angina, paroxysmal A-fib on Eliquis: On monitor patient has paced rhythm 4. Hypertension, dyslipidemia: Blood pressure is in normal range. 5. GERD and hypothyroidism: Pantoprazole ordered. 6. Hypothyroidism: TSH and free T4 are 3.51 and 1.03 in normal range. Living will/advanced directive/end of life care: Patient does have living will or advanced directive. Her son is power of trust and estates attorney for health. After discussion of benefits/risks procedures involved with full code, DNR CC arrest and DNR CC, the patient opted for full code. Patient does want artificial life support including intubation, tube feed, ventilator and/chest compression, central venous catheter, vasopressor and DC shock if needed Clinical Impression(s) from Imaging Studies Echocardiogram 07/03/23 08:49 Interpretation Summary The estimated ejection fraction is 65-70 %. Stage 2 diastolic dysfunction. The left atrium is markedly enlarged. Mild toMild (1+) mitral valve insufficiency. Moderate ricuspid valve insufficiency. Pulmonary artery systolic pressure estimated at 62 mmHg. Stable appearing bioprosthetic aortic valve apparatus. Mild to moderate eccentric aortic valve insufficiency. Mildly dilated aortic root. Charges/Coding Visit Charges Inpatient E&M: 82490 Subs Hosp L2
[2023-07-09] MEDS: 0.9% Saline Lock 10 ML Syringe IV (18:14)
[2023-07-09] MEDS: Zolpidem Tartrate 5 MG Tablet 2.5 MG PO (21:49)
[2023-07-10] VITALS (8 sets, daily range): BP systolic 92–120; BP diastolic 34–51; PULSE 88–96; RESP 16–20; TEMP 36.3–37.2; O2SAT 91–98; BMI 25.8
[2023-07-10] MEDS: Acetaminophen 500 MG Tablet 1000 MG PO (01:38)
[2023-07-10 06:18] LABS: Absolute Lymphocyte Count 0.94 X10^3/uL (0.83-4.51); Absolute Neutrophil Count 4.1 X10^3/uL (2.0-7.7); Basophil# 0.02 X10^3/uL; Basophil% 0.4 % (0-1); Eosinophil# 0.04 X10^3/uL; Eosinophils% 0.7 % (0-5); Hematocrit 32.2 % (37-47); Hemoglobin 10.3 g/dL (12.0-15.0); Lymphocyte # 0.94 X10^3/ul (0.83-4.51); Lymphocyte % 17.6 % (19-41); Mean Corpuscular Hgb 32.5 pg (27.0-32.0); Mean Corpuscular Volume 101.6 fL (81-99); Mean Platelet Vol. 9.6 fl (6.2-12.0); Monocyte# 0.28 X10^3/uL; Monocyte% 5.2 % (0-10); NRBC Flagged by Analyzer 0 % (0-5); Neutrophil # 4.05 X10^3/uL (2.7-7.7); Neutrophil % 75.7 % (47-70); POSITIVE MORPHOLOGY YES; Platelet Count 199 K/mm3 (150-450); RBC Distribution Width CV 18.6 % (11.6-14.6); RBC Distribution Width SD 69.6 fl (35.1-43.9); Red Blood Count 3.17 M/mm3 (4.2-5.4); White Blood Count 5.4 K/mm3 (4.4-11.0)
[2023-07-10 06:32] LABS: Differential Indicated SCAN CRITERIA MET
[2023-07-10 06:56] LABS: Anion Gap 6 (5-15); BUN 22 mg/dL (7-18); Calcium,Total 9.4 mg/dL (8.5-10.1); Chloride 92 mmol/L (98-107); Creatinine, Serum 0.73 mg/dL (0.55-1.02); EST Glomerular Filtration Rate 80 mL/min (>60); Est Glom Filt Rate - Afr Amer 97 mL/min (>60); Estimated Creatinine Clearance 47.83 ml/min; Glucose 108 mg/dL (74-106); Potassium 3.2 mmol/L (3.5-5.1); Sodium Level 135 mmol/L (136-145)
[2023-07-10 08:08] LABS: Anisocytosis 1+
[2023-07-10] MEDS: Menthol/Lanolin/Calamine/Znox 113 GM Tube 1 APPLIC TOPICAL ×2 (08:56→21:26)
[2023-07-10] MEDS: Carvedilol 3.125 MG TABLET PO ×2 (08:56→21:25)
[2023-07-10] MEDS: Enoxaparin 40 MG/0.4 ML Syringe SC (08:57)
[2023-07-10] MEDS: Methenamine Hippurate 1 GM Tablet PO ×2 (08:57→21:25)
[2023-07-10] MEDS: Pantoprazole Sodium 40 MG Tablet PO (08:57)
[2023-07-10] MEDS: Empagliflozin 10 MG Tablet PO (08:57)
[2023-07-10] MEDS: Senna/Docusate Sodium 1 Tablet 2 TABLET PO (10:13)
[2023-07-10] MEDS: 0.9% Saline Lock 10 ML Syringe IV ×2 (10:24→17:28)
[2023-07-10] MEDS: Ceftriaxone 1 GM/50 ML BAG IV (10:24)
[2023-07-10] MEDS: Furosemide 40 MG/4 ML Vial IV ×2 (10:25→17:28)
[2023-07-10] MEDS: Potassium Chloride Oral Tablet 20 MEQ 60 MEQ PO (16:39)
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
[2023-07-10] MEDS: busPIRone 5 MG Tablet PO (21:24)
[2023-07-10] MEDS: Atorvastatin Calcium 20 MG Tablet PO (21:25)
[2023-07-10] MEDS: Zolpidem Tartrate 5 MG Tablet 2.5 MG PO (22:07)
[2023-07-11] VITALS (7 sets, daily range): BP systolic 99–134; BP diastolic 39–66; PULSE 94–104; RESP 16–18; TEMP 36.1–36.9; O2SAT 95–96; BMI 26.2
[2023-07-11] MEDS: Acetaminophen 500 MG Tablet 1000 MG PO (00:46)
[2023-07-11] MEDS: Levothyroxine 100 MCG Tablet PO (06:29)
[2023-07-11] MEDS: Pantoprazole Sodium 40 MG Tablet PO (06:29)
[2023-07-11 07:41] LABS: Absolute Lymphocyte Count 0.86 X10^3/uL (0.83-4.51); Absolute Neutrophil Count 4.8 X10^3/uL (2.0-7.7); Basophil# 0.02 X10^3/uL; Basophil% 0.3 % (0-1); Eosinophil# 0.04 X10^3/uL; Eosinophils% 0.7 % (0-5); Hematocrit 32.6 % (37-47); Hemoglobin 10.1 g/dL (12.0-15.0); Lymphocyte # 0.86 X10^3/ul (0.83-4.51); Lymphocyte % 14.1 % (19-41); Mean Corpuscular Hgb 32.1 pg (27.0-32.0); Mean Corpuscular Volume 103.5 fL (81-99); Mean Platelet Vol. 9.8 fl (6.2-12.0); Monocyte# 0.34 X10^3/uL; Monocyte% 5.6 % (0-10); NRBC Flagged by Analyzer 0 % (0-5); Neutrophil % 78.6 % (47-70); POSITIVE MORPHOLOGY YES; Platelet Count 220 K/mm3 (150-450); RBC Distribution Width CV 18.6 % (11.6-14.6); RBC Distribution Width SD 70.3 fl (35.1-43.9); Red Blood Count 3.15 M/mm3 (4.2-5.4); White Blood Count 6.1 K/mm3 (4.4-11.0)
[2023-07-11 07:46] LABS: Anion Gap 4 (5-15); BUN 19 mg/dL (7-18); Calcium,Total 9.3 mg/dL (8.5-10.1); Chloride 94 mmol/L (98-107); Creatinine, Serum 0.83 mg/dL (0.55-1.02); EST Glomerular Filtration Rate 70 mL/min (>60); Est Glom Filt Rate - Afr Amer 85 mL/min (>60); Estimated Creatinine Clearance 46.48 ml/min; Glucose 103 mg/dL (74-106); Potassium 3.4 mmol/L (3.5-5.1); Sodium Level 136 mmol/L (136-145)
[2023-07-11 08:03] LABS: Differential Indicated SCAN CRITERIA MET
[2023-07-11 09:27] LABS: Anisocytosis 2+; Differential Comment SCANNED; Macrocytosis 1+; Microcytosis 1+
[2023-07-11] MEDS: 0.9% Saline Lock 10 ML Syringe IV ×2 (09:48→17:38)
[2023-07-11] MEDS: Methenamine Hippurate 1 GM Tablet PO ×2 (09:49→20:12)
[2023-07-11] MEDS: Menthol/Lanolin/Calamine/Znox 113 GM Tube 1 APPLIC TOPICAL ×2 (09:49→20:14)
[2023-07-11] MEDS: Carvedilol 3.125 MG TABLET PO ×2 (09:49→20:13)
[2023-07-11] MEDS: Empagliflozin 10 MG Tablet PO (09:49)
[2023-07-11] MEDS: busPIRone 5 MG Tablet PO ×2 (09:49→20:12)
[2023-07-11] MEDS: Furosemide 40 MG/4 ML Vial IV ×2 (09:50→17:38)
[2023-07-11] MEDS: Ceftriaxone 1 GM/50 ML BAG IV (09:50)
[2023-07-11] MEDS: Enoxaparin 40 MG/0.4 ML Syringe SC (09:50)
--- NOTE | 2023-07-11 15:59 | PCM.PN.HOSP ---
Reason for Visit Reason for Visit: Shortness of breath Subjective Subjective No issues overnight. Patient states she is not having any shortness of breath at rest however she gets significantly short of breath with exertion related to her aortic valve. She is frustrated that she has not yet but [facility] being evaluated for TAVR. We did call again today and they gave us no indication that they would have a bed today. Call was made later in the afternoon state that they may have a bed for her tomorrow. Objective Data Objective Data Vital Signs: Vital Signs Temp Pulse Resp BP Pulse Ox O2 Del Method O2 Flow Rate 98.4 F 97 16 110/39 L 95 Room Air 2 07/11/23 14:10 07/11/23 14:10 07/11/23 14:10 07/11/23 14:10 07/11/23 14:10 07/11/23 14:10 07/06/23 15:18 FiO2 21 07/10/23 22:50 Oxygen Flow Rate (L/min) 2 Oxygen Delivery Method Room Air Weight: 67.3 kg Body Mass Index (BMI) 26.2 Intake & Output: Intake and Output for Last 24 Hours 07/09/23 07/10/23 07/11/23 23:59 23:59 23:59 Intake Total 850 / 850 150 / 450 700 / 700 Output Total 350 / 350 Balance 850 / 850 -200 / 100 700 / 700 Lab / Micro Data 07/11/23 06:20 07/11/23 06:20 Labs: Laboratory Results - last 24 hr 07/11/23 06:20: WBC 6.1, RBC 3.15 L, Hgb 10.1 L, Hct 32.6 L, MCV 103.5 H, MCH 32.1 H, MCHC 31.0 L, RDW Std Deviation 70.3 H, RDW Coeff of Ejaneth 18.6 H, Plt Count 220, MPV 9.8, Immature Gran % (Auto) 0.700, Neut % (Auto) 78.6 H, Lymph % (Auto) 14.1 L, Towns % (Auto) 5.6, Eos % (Auto) 0.7, Baso % (Auto) 0.3, Absolute Neuts (auto) 4.8, Absolute Lymphs (auto) 0.86, Nucleated RBC % 0, Differential Comment SCANNED, Anisocytosis 2+, Microcytosis 1+, Macrocytosis 1+, Sodium 136, Potassium 3.4 L, Chloride 94 L, Carbon Dioxide 38.0 H, Anion Gap 4 L, BUN 19 H, Creatinine 0.83, Estim Creat Clear Calc 46.48, Est GFR (MDRD) Af Amer 85, Est GFR (MDRD) Non-Af 70, BUN/Creatinine Ratio 23.0 H, Glucose 103, Calcium 9.3 Micro: Microbiology 07/08/23 06:00 Urine, Clean Catch Urine Culture - Final Presumptive E. coli 07/05/23 07:58 Fluid - Thoracentesis Fluid Gram Stain - Final 07/05/23 07:58 Fluid - Thoracentesis Fluid Body Fluid Culture - Final No growth aerobically. 07/05/23 07:58 Fluid - Thoracentesis Fluid Anaerobic Culture - Final No growth in 5 days. 07/03/23 09:45 Blood Culture (Wb) - No Site/Description Given Blood Culture - Final No growth in 5 days. 07/03/23 09:30 Blood Culture (Wb) - No Site/Description Given Blood Culture - Final No growth in 5 days. 07/03/23 10:10 Urine, Clean Catch Urine Culture - Final Mixed Gram Pos & Gram Neg Org 07/03/23 10:10 Urine, Clean Catch Legionella Antigen - Final 07/03/23 10:10 Urine, Clean Catch Streptococcus pneumoniae Antigen (M - Final 07/03/23 09:30 Mucosa - Nasopharyngeal SARS-CoV-2, Influenza & RSV (PCR) - Final Physical Exam Const alert, oriented x3, no apparent distress, average body habitus and well nourished; Negative for healthy appearing Constitutional Narrative: Older, white female, sitting up in a chair at the bedside, appears comfortable, does not appear toxic, reclined, on room air, reading a book on her computer HEENT head/scalp atraumatic and moist oral mucous membranes Head and Scalp: normocephalic Resp normal respiratory effort, no retractions, no use of accessory muscles and clear to auscultation bilaterally Auscultation: Negative for crackles, rhonchi or wheezes Cardio regular rate, regular rhythm, S1 normal heart sound, no rub, no gallops and no clicks; Negative for S2 normal heart sound or no murmurs Cardio Narrative: 3 out of 6 systolic murmur with soft S2 GI normal to inspection, nondistended, normoactive bowel sounds, soft to palpation and non-tender Extremity no clubbing, cyanosis or edema Extremity Narrative: 2+ pedal pulses Neuro oriented x3, moves all extremities and no focal motor deficits Neuro Narrative: Generalized weakness noted with no focal deficits Speech: speech normal Psych affect normal Psych Narrative: Interacts appropriately, remains frustrated Assessment & Plan Assessment/Plan (1) Paroxysmal atrial fibrillation: (2) Pleural effusion due to CHF (congestive heart failure): (3) Acute on chronic diastolic (congestive) heart failure: (4) Pulmonary hypertension: PLAN: Plan Acute hypoxic and hypercapnic respiratory failure secondary to bilateral pleural effusions/acute on chronic HFpEF/valvular heart disease -Resolved and now on room air -Continue IV diuretics as patient currently appears to be euvolemic and tolerating diuresis well -Continue goal-directed therapy with carvedilol, Jardiance -Not on HANSA inhibitor due to blood pressure and aortic valve disease -Monitor lab -Continue nocturnal BiPAP and supplemental oxygen as needed -Currently on room air and only getting BiPAP nocturnally -Likely related to decompensated aortic valve disease with previous bioprosthetic valve -Patient had total evaluation with outpatient cardiology and recommended evaluation at [facility] for TAVR -Patient has been accepted and awaiting bed availability in [place]--> call center is hopeful for tomorrow Hypokalemia - will give 60 more mill equivalents today and check a.m. magnesium level -Recheck in a.m. Bilateral pleural effusions with compressive atelectasis -Status postthoracentesis for 600 cc -Transudative -Infectious workup negative -Plan is to treat the underlying condition with TAVR once bed available in [place] E. coli UTI -Continue ceftriaxone -Day 4 of 7 Chronic anemia -Hemoglobin appears to be stable -Continue to monitor -No acute signs of bleeding CAD/PAF -Patient has pacemaker at baseline -Continue beta-tiffanie -Previously was on Eliquis however this is currently on hold for potential procedures and upcoming TAVR HTN/HPL -Continue carvedilol -Continue home statin History of GERD/history of GI bleed -Continue home Protonix Hypothyroidism -Continue home levothyroxine -TSH is within normal limits on 07/04/2023 at 3.51 DVT prophylaxis -Continue enoxaparin CODE STATUS -Full code is verified on presentation Charges/Coding Visit Charges Inpatient E&M: 29054 Subs Hosp L2
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
[2023-07-11] MEDS: Potassium Chloride Oral Tablet 20 MEQ 40 MEQ PO (17:37)
[2023-07-11] MEDS: Polyethylene Glycol 3350 17 GM PACKET PO (20:13)
[2023-07-11] MEDS: Atorvastatin Calcium 20 MG Tablet PO (20:13)
[2023-07-12 01:57] VITALS: BP 141/50; PULSE 83; RESP 16; TEMP 36.8; O2SAT 97
== END 2023-07-12 02:25 | disposition short-term general hospital (02) | DRG 291 ==
LOC: ICU 07-04 14:19 → PCU 07-07 13:40
PROVIDERS: Internal Medicine; Admitting Provider Internal Medicine; PCP Internal Medicine; Visit Provider Internal Medicine
DX: I11.0 Hypertensive heart disease with heart failure (principal); J96.02 Acute respiratory failure with hypercapnia; J96.01 Acute respiratory failure with hypoxia; I50.33 Acute on chronic diastolic (congestive) heart failure; G93.49 Other encephalopathy; J91.8 Pleural effusion in other conditions classified elsewhere; N39.0 Urinary tract infection, site not specified; I27.20 Pulmonary hypertension, unspecified; I48.0 Paroxysmal atrial fibrillation; E03.9 Hypothyroidism, unspecified; I77.819 Aortic ectasia, unspecified site; I08.3 Combined rheumatic disorders of mitral, aortic and tricuspid valves; D64.9 Anemia, unspecified; I25.10 Atherosclerotic heart disease of native coronary artery without angina pectoris; E78.00 Pure hypercholesterolemia, unspecified; K21.9 Gastro-esophageal reflux disease without esophagitis; E87.6 Hypokalemia; Z79.01 Long term (current) use of anticoagulants; B96.20 Unspecified Escherichia coli [E. coli] as the cause of diseases classified elsewhere; Z79.84 Long term (current) use of oral hypoglycemic drugs; Z79.890 Hormone replacement therapy; Z79.899 Other long term (current) drug therapy; Z95.3 Presence of xenogenic heart valve
CPT/HCPCS: 32555; 36415; 36600; 71046; 80048; 81001; 81002; 82803; 82945; 83615; 84156; 84157; 84439; 84443; 85025; 87040; 87070; 87075; 87086; 87088; 87186; 87205; 87449; 87631; 88108; 88305; 88313; 88341; 88342; 89050; 93005; 93306; 94002; 94003; 94640; 94762; 97110; 97116; 97162; 97166; 97530; 97535; Q9957; A4216; J1940

== ENCOUNTER 2023-08-03 18:33 | Inpatient (IN) | payer MEDICARE, SELFPAY ==
[2023-08-03 18:41] VITALS: BP 107/44; PULSE 86; RESP 20; TEMP 36.4; O2SAT 96
[2023-08-03 20:20] VITALS: O2SAT 99
[2023-08-03 21:00] VITALS: PULSE 85; RESP 20; O2SAT 96; BMI 25.0
[2023-08-03] MEDS: Pantoprazole Sodium 40 MG Tablet PO (21:55)
[2023-08-03] MEDS: Atenolol 25 MG Tablet 12.5 MG PO (21:55)
[2023-08-03] MEDS: Senna/Docusate Sodium 1 Tablet 2 TABLET PO (21:55)
[2023-08-03] MEDS: APIXABAN 5 MG TABLET PO (21:56)
[2023-08-03] MEDS: Acetaminophen 325 MG Tablet 975 MG PO (21:56)
[2023-08-03] MEDS: Atorvastatin Calcium 40 MG Tablet PO (21:56)
[2023-08-03 22:15] VITALS: PULSE 84; RESP 12; RESP 27; O2SAT 97
[2023-08-04] VITALS (11 sets, daily range): BP systolic 96–118; BP diastolic 34–42; PULSE 70–89; RESP 12–28; TEMP 36.2–36.6; O2SAT 93–97; BMI 25.0
--- NOTE | 2023-08-04 01:24 | CPS ---
[0117] Adjusted pt.'s BiPAP mask on her right side to help address high-pitched squeaking sound from pt.'s breathing.
--- NOTE | 2023-08-04 03:50 | CPS ---
[0342] Pt. unable to get comfortable with V60 BiPAP. The mask was too tight she stated. I switched this unit out for a sleep lab unit. Pt. states that it is more comfortable, and she is willing to try and wear it throughout the remainder of the morning.
[2023-08-04 05:44] LABS: Hematocrit 30.7 % (37-47); Hemoglobin 9.6 g/dL (12.0-15.0); Mean Corp Hgb Conc 31.3 g/dL (32-36); Mean Corpuscular Hgb 32.3 pg (27.0-32.0); Mean Corpuscular Volume 103.4 fL (81-99); Mean Platelet Vol. 10.2 fl (6.2-12.0); Platelet Count 143 K/mm3 (150-450); RBC Distribution Width CV 14.9 % (11.6-14.6); RBC Distribution Width SD 56.6 fl (35.1-43.9); Red Blood Count 2.97 M/mm3 (4.2-5.4); White Blood Count 4.9 K/mm3 (4.4-11.0)
[2023-08-04 06:02] LABS: ALB/GLOB Ratio 0.7 RATIO (0.9-2.4); AST(SGOT) 18 U/L (15-37); Alanine Aminotransfer ALT/SGPT 18 U/L (13-56); Albumin, Serum 2.7 g/dL (3.2-5.0); Alkaline Phosphatase 66 U/L (45-117); Anion Gap 6 (5-15); BUN 46 mg/dL (7-18); BUN/Creat Ratio 41.1 RATIO (10-20); Calcium,Total 9.6 mg/dL (8.5-10.1); Chloride 95 mmol/L (98-107); Creatinine, Serum 1.12 mg/dL (0.55-1.02); EST Glomerular Filtration Rate 49 mL/min (>60); Est Glom Filt Rate - Afr Amer 60 mL/min (>60); Estimated Creatinine Clearance 33.67 ml/min; Globulin 4.1 g/dL (2.2-4.2); Glucose 127 mg/dL (74-106); Magnesium 2.3 mg/dL (1.6-2.6); Phosphorus 3.1 mg/dL (2.5-4.9); Potassium 3.5 mmol/L (3.5-5.1); Protein, Total 6.8 g/dL (6.4-8.2); Sodium Level 134 mmol/L (136-145)
[2023-08-04] MEDS: Levothyroxine 100 MCG Tablet PO (06:02)
[2023-08-04] MEDS: Ipratropium/Albuterol Sulfate 3 ML AMPUL.NEB INHALATION ×3 (07:15→19:12)
[2023-08-04] MEDS: Methenamine Hippurate 1 GM Tablet PO ×2 (08:10→17:21)
[2023-08-04] MEDS: Nystatin Powder 15gm Bottle 1 APPLIC TOPICAL (08:10)
[2023-08-04] MEDS: Cholecalciferol (VIT D3) 25 MCG TABLET (1,000 UNITS) PO (08:10)
[2023-08-04] MEDS: Vitamin B Comp W-C Capsule 1 CAP PO (08:10)
[2023-08-04] MEDS: APIXABAN 5 MG TABLET PO ×2 (08:10→22:00)
[2023-08-04] MEDS: Furosemide 40 MG Tablet PO ×2 (08:22→17:21)
[2023-08-04] MEDS: Spironolactone 25 MG Tablet PO (08:22)
[2023-08-04] MEDS: Atenolol 25 MG Tablet 12.5 MG PO ×2 (08:22→22:00)
--- NOTE | 2023-08-04 08:25 | NURSING ---
Notified Dr Lou of pt's BP, received orders to give all morning BP meds.
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
[2023-08-04 16:28] LABS: Platelet Count 140 K/mm3 (150-450); RET-HE 26.9 pg (30-35); Reticulocyte Count 1.43 % (0.5-1.5)
[2023-08-04 16:40] LABS: Ferritin 242 ng/mL (8-252); Iron 12 ug/dL (50-170); Iron Binding Capacity,Total 199 ug/dL (250-450)
--- NOTE | 2023-08-04 16:51 | PCM.RU.PYE ---
Admission Information Primary Diagnosis:: Debility due to generalized weakness Status Changes from Prescreening?: No changes Identified Actual Problem List:: Pain, ALteration in Cmfrt, Alteration in Nutrition, Mobility Impaired, Self Care Deficit, Alteration/ Air Exchange, Fluid Overload r/t CHF and Alteration-Leisure Activ. Potential Problem List:: DVT, Bleeding, Infection, UTI, Aspiration, Falls, Skin Integrity and Depression Risk of Complications DVT: RANCHO Hose (Or Gregg wraps to the bilateral lower extremities) and - (Apixaban) Bleeding: Monitor Lab Values, Nursing to Teach Precautions for anti-coagulation therapy., Wound, if applicable, to be assessed every shift. and Stroke patients assessed for lethargy or change in status. Infection: Clinical Staff to Monitor for S/S of infection: and S/S of infection include fever, redness, warmth, etc. Urinary Tract Infection: Monitor for frequency, burning, discomfort, or incontinence. and Nursing will obtain urine sample for urinalysis and C&S when ordered. Aspiration: Clinical staff will monitor for coughing, drooling, congestion., Speech will evaluate swallowing and dsyphasia. and Nursing will monitor patient swallowing during meals. Falls: Patient will be evaluated for Fall Precautions and Patient will be placed on Fall Precautions as indicated per protocol. Skin Breakdown: Nursing will assess skin daily using assessment tool. and Nursing will place on Skin Breakdown Precautions as indicated. Pain: Clinical staff will assess patient's pain level per protocol., Medications will be given, if needed, and the pain level reassessed. and Other methods: Massage, distraction, decrease stimulus, etc. used PRN. Plan of Care Patient requires physician specializing in physical medicine and rehab oversight to provide close medical supervision of rehab issues including: Pain Management, Sleep Problems, Bowel and Bladder, Medical and co-morbidity Management, DVT prophylaxis, Rehabilitation Leadership and Coordination of treatment team Patient needs Physical Therapy: For a minimum of 1 hour and At least 5 out of 7 days Patient needs Physical Therapy to improve:: Mobility, Strengthening, Transfers, Stretching, ROM, Endurance, Stairs, Gait and Balance Patient needs Occupational Therapy: For a minimum of 1 hour and At least 5 out of 7 days Patient needs Occupational Therapy to improve ADL's incl.: Eating, Grooming, Bathing, Dressing, Toileting, Toilet transfers, Community Reintegration, Higher functioning activities, Household tasks, Adaptive Equipment, Splinting and Other activities as determined Patient requires 24/7 Rehabilitation Nursing for: Pain Issues, Identifying and preventing risk factors, Monitoring and reporting current medical conditions, Assisting with ambulation, transfer, and all ADL's, Teaching patients about disease process and medications, Family teaching, Providing safe environment, Bowel and Bladder Issues, Skin integrity and Medication Management Patient needs Special Events Assistant/ Case Management for: Discharge Planning, Arranging Home Equipment or Services and Family Interventions Patient needs Dietary and Nutrition Services for: Adequate Nutrition, Nutritional Supplements and Nutritional Education Goals Goals Patient will remain: free from falls Patient will perform eating at: MOD I level of assist. Patient will perform bed mobility at: MOD I level of assist. Patient will complete transfers from bed to chair at: MOD I level of assist. Patient will ambulate: - (250 feet with least restrictive device at standby assist on various surfaces) Patient will complete upper body dressing at: - (Set up level) Patient will complete lower body dressing at: - (Supervision with adaptive equipment as needed) Patient will complete toilet transfer at: - (Distant supervision) Patient will complete toileting at: - (Distant supervision) Patient will perform bathing at: - (Supervision with adaptive equipment as needed for lower body bathing.) Patient will perform Tub/Shower transfer at: - (Supervision using DME as needed as needed.) Patient will complete grooming at: - (At supervision level while standing at the sink.) Patient will achieve: - (2 steps with 2 handrails at standby assist to allow access to her home entrance) Patient will have pain level of: of 3 or less Patient's skin will: remain intact Patient will receive: adequate nutrition. Discharge Planning Estimated Length of stay (days): 21 Anticipated D/C Destination: TBD Was Preadmission Assessment Accurate?: Yes
--- NOTE | 2023-08-04 16:59 | RAD_ITS ---
STUDY: X-RAY CHEST REASON FOR EXAM: Female, 82 years old. shortness of Breath with chronic CHF TECHNIQUE: Frontal and lateral views of the chest. COMPARISON: 07/05/2023. FINDINGS: Normal lung volumes. Atelectasis or infiltrate in both lung bases with small effusions. On the right, there has been worsening since prior study. On the left there has been improvement since prior study. Sternal cerclage wires and vascular clips are present from a prior sternotomy and coronary artery bypass graft procedure (CABG). Pacemaker is seen with leads terminating in the right atrium and right ventricle. Normal mediastinum and ting. Normal visualized pulmonary arteries. There is atherosclerotic calcification of the aortic arch with tortuosity. Normal visualized thoracic spine. Normal visualized ribs, clavicles, and shoulders. There is no demonstrated abnormality of the visualized soft tissue structures of the upper abdomen. RAD/Chest PA and Lateral IMPRESSION: Atelectasis or infiltrate in both lung bases with pleural effusions. Electronically Signed: Keo Ortega MD at 17:16 EDT ,
[2023-08-04] MEDS: CLARIFY ORDER 1 EACH NOTE (17:21)
[2023-08-04] MEDS: Potassium Chloride Oral Tablet 10 MEQ PO (17:21)
[2023-08-04] MEDS: Atorvastatin Calcium 40 MG Tablet PO (21:59)
[2023-08-04] MEDS: Pantoprazole Sodium 40 MG Tablet PO (22:00)
[2023-08-05] VITALS (8 sets, daily range): BP systolic 100–113; BP diastolic 38–49; PULSE 76–95; RESP 18–26; TEMP 36.7–36.8; O2SAT 92–95; BMI 25.4
--- NOTE | 2023-08-05 04:39 | NURSING ---
Reviewed and agree with Kisha MONTES, documentation and assessment charting.
[2023-08-05] MEDS: Levothyroxine 100 MCG Tablet PO (06:07)
[2023-08-05] MEDS: Methenamine Hippurate 1 GM Tablet PO ×2 (08:10→17:29)
[2023-08-05] MEDS: Vitamin B Comp W-C Capsule 1 CAP PO (08:10)
[2023-08-05] MEDS: Cholecalciferol (VIT D3) 25 MCG TABLET (1,000 UNITS) PO (08:10)
[2023-08-05] MEDS: Potassium Chloride Oral Tablet 10 MEQ PO (08:10)
[2023-08-05] MEDS: Spironolactone 25 MG Tablet PO (08:10)
[2023-08-05] MEDS: APIXABAN 5 MG TABLET PO ×2 (09:51→21:33)
[2023-08-05] MEDS: Atenolol 25 MG Tablet 12.5 MG PO ×2 (09:52→21:32)
[2023-08-05] MEDS: Furosemide 40 MG Tablet PO ×2 (09:52→17:29)
[2023-08-05] MEDS: Ipratropium/Albuterol Sulfate 3 ML AMPUL.NEB INHALATION ×2 (13:31→19:36)
[2023-08-05] MEDS: Pantoprazole Sodium 40 MG Tablet PO (21:33)
[2023-08-05] MEDS: Atorvastatin Calcium 40 MG Tablet PO (21:33)
[2023-08-06] VITALS (7 sets, daily range): BP systolic 105–135; BP diastolic 39–42; PULSE 64–93; RESP 19–36; TEMP 36.4–36.9; O2SAT 93–100; BMI 25.1
[2023-08-06] MEDS: Levothyroxine 100 MCG Tablet PO (05:06)
[2023-08-06] MEDS: Ipratropium/Albuterol Sulfate 3 ML AMPUL.NEB INHALATION ×3 (07:05→19:35)
[2023-08-06] MEDS: Potassium Chloride Oral Tablet 10 MEQ PO (08:27)
[2023-08-06] MEDS: Atenolol 25 MG Tablet 12.5 MG PO ×2 (08:28→21:11)
[2023-08-06] MEDS: APIXABAN 5 MG TABLET PO ×2 (08:28→21:11)
[2023-08-06] MEDS: Methenamine Hippurate 1 GM Tablet PO ×2 (08:28→16:58)
[2023-08-06] MEDS: Vitamin B Comp W-C Capsule 1 CAP PO (08:28)
[2023-08-06] MEDS: Furosemide 40 MG Tablet PO ×2 (10:57→17:00)
[2023-08-06] MEDS: Cholecalciferol (VIT D3) 25 MCG TABLET (1,000 UNITS) PO (10:57)
[2023-08-06] MEDS: Spironolactone 25 MG Tablet PO (10:57)
--- NOTE | 2023-08-06 19:47 | CPS ---
[1942] Oxygen bleed-in to BiPAP machine increased to 3L at this time. RN made aware of oxygen increase.
[2023-08-06] MEDS: Pantoprazole Sodium 40 MG Tablet PO (21:11)
[2023-08-06] MEDS: Atorvastatin Calcium 40 MG Tablet PO (21:13)
[2023-08-07] VITALS (10 sets, daily range): BP systolic 109–130; BP diastolic 34–47; PULSE 76–136; RESP 16–28; TEMP 36.9–37; O2SAT 92–98; BMI 25.5
[2023-08-07] MEDS: Levothyroxine 100 MCG Tablet PO (05:41)
[2023-08-07 05:51] LABS: Blood Gas Specimen Type VEN; Comment 14/6; O2 Delivery Device BiPAP; SITE Not entered; VBG BASE EXCESS 11 mmol/L (-1.0-3.5); VBG Bicarbonate 35 mmol/L (22-26); VBG PO2 148 mmHg (25-40); VBG SO2 99 % (50-70); VBG TCO2 37 mmol/L (23-33); VBG pCO2 49.4 mmHg (41-51); VBG pH 7.46 (7.32-7.42)
[2023-08-07 06:43] LABS: Anion Gap 7 (5-15); BUN 54 mg/dL (7-18); BUN/Creat Ratio 54.1 RATIO (10-20); Chloride 98 mmol/L (98-107); EST Glomerular Filtration Rate 56 mL/min (>60); Est Glom Filt Rate - Afr Amer 68 mL/min (>60); Estimated Creatinine Clearance 38.08 ml/min; Glucose 141 mg/dL (74-106); Magnesium 2.1 mg/dL (1.6-2.6); Sodium Level 137 mmol/L (136-145)
[2023-08-07] MEDS: Atenolol 25 MG Tablet 12.5 MG PO ×2 (07:47→20:24)
[2023-08-07] MEDS: APIXABAN 5 MG TABLET PO ×2 (07:47→20:26)
[2023-08-07] MEDS: Methenamine Hippurate 1 GM Tablet PO ×2 (07:47→18:25)
[2023-08-07] MEDS: Furosemide 40 MG Tablet PO (07:47)
[2023-08-07] MEDS: Cholecalciferol (VIT D3) 25 MCG TABLET (1,000 UNITS) PO (07:47)
[2023-08-07] MEDS: Spironolactone 25 MG Tablet PO (07:48)
[2023-08-07] MEDS: Potassium Chloride Oral Tablet 10 MEQ PO (07:48)
[2023-08-07] MEDS: Vitamin B Comp W-C Capsule 1 CAP PO (07:48)
[2023-08-07 08:51] LABS: Vitamin B12 908 pg/mL (211-911)
--- NOTE | 2023-08-07 10:58 | PN_ITS ---
Subjective Subjective Cely was seen on TEAM rounds today. Her dtr Param was present in the room and her son participated by phone. In our meeting prior to meeting in the pat room the therapists and nurses expressed concern because her exercise tolerance has decreased since admission last Monday. Cely told me that she was doing much less therapy at the previous institution. Afebrile VSS -blood pressure over the past 24 hours has ranged from 105/39 to 135/42. Heart rate is within normal limits. Maintaining appropriate oxygen saturation -on a 3 L/min nasal cannula. Pulse ox has ranged from 92% to 100% over the past 24 hours. Oral intake - FOOD fair to good FLUIDS good fluid balance yesterday was -861 Weight is up approximately 3 pounds since admission. Discussed with nursing - no problems that need addressed Reviewed the THERAPY notes Medication list reviewed. She is feeling SOB, even at rest. She is not coughing. Breathing is rapid and shallow. She admits to feeling anxious. She has been agreeable to wearing the BIPAP when she is sitting in the recliner. She denies lightheadedness. She is c/o dry mouth and the MM are very dry. She denies CP, but, she is having palpitations. She tells me that she slept well last night but, the night nurses say after she got up to go to the she had a hard time getting back to sleep. All labs personally reviewed. Hemoglobin is 9.3, down from 9.6 on 08/04/2023. Sodium is 135 and stable. Potassium is 4. The serum bicarb is 35, up from 33 at admission. The BUN is 53, up from 46 on 08/04/2023 and the creatinine is 1.01 which is stable. Magnesium is 2.3. Iron studies showed a low serum iron at 12, TIBC at 199 and a very low iron saturation at 6.0. Ferritin was 242. BNP is elevated at 581.6. B12 was normal. A venous blood gas was ordered by the hospitalist and the PH was 7.46 indicating the metabolic alkalosis may be due to volume contraction related to diuretics. She was taking 40 mg BID of Lasix when she presented to rehab and this was decreased to 40 mg daily starting 08/06/23. Objective Data Objective Data Vital Signs: Vital Signs Temp Pulse Resp BP Pulse Ox O2 Del Method O2 Flow Rate 98.6 F 84 24 H 130/47 H 98 Nasal Cannula 3 08/07/23 07:40 08/07/23 07:40 08/07/23 07:40 08/07/23 07:40 08/07/23 09:13 08/07/23 10:00 08/07/23 10:00 FiO2 30 08/04/23 01:17 Oxygen Flow Rate (L/min) 3 Oxygen Delivery Method Nasal Cannula Weight: 144 lb 3 oz Body Mass Index (BMI) 25.5 Intake & Output: Intake and Output for Last 24 Hours 08/05/23 08/06/23 08/07/23 23:59 23:59 23:59 Intake Total 1575 / 1695 1240 / 1240 Output Total 1320 / 1645 2101 / 2101 Balance 255 / 50 -861 / -861 Lab / Micro Data 08/07/23 11:42 08/07/23 11:42 Labs: Laboratory Results - last 24 hr 08/05/23 05:07: Vitamin B12 908 08/07/23 05:30: Sodium 137, Potassium 4.0, Chloride 98, Carbon Dioxide 32.0, Anion Gap 7, BUN 54 H, Creatinine 1.00, Estim Creat Clear Calc 38.08, Est GFR (MDRD) Af Amer 68, Est GFR (MDRD) Non-Af 56 L, BUN/Creatinine Ratio 54.1 H, G lucose 141 H, Calcium 10.0, Magnesium 2.1 Micro: Microbiology 08/05/23 11:20 Stool Stool Occult Blood (CAILIN) - Final Occult Blood Positive ABG Data ABG results: ABG 08/07/23 05:48 Specimen Type YOMAIRA Sample Site Not entered O2 % 3.0 VBG pH 7.46 H VBG pO2 148 H VBG HCO3 35 H VBG Total CO2 37 H VBG O2 Sat (Calc) 99 H VBG Base Excess 11 H POC Mix VBG pCO2 Pt Tmp 49.4 O2 Delivery Device BiPAP Clinical Comments 03/08 Physical Exam Const alert Constitutional Narrative: Looks very fatigued. She is perseverating on her labs. HEENT Mouth: dry mucous membranes Resp Resp Narrative: Shallow rapid breathing. Rate increases when she is anxious........increased with the ST and they practised some deep breathing exercises and her rate slowed down and she was able to get a deeper breath. Very diminished in the bases. No wheezing. Some crackles in the base on the left. Cardio Cardio Narrative: Regular with increased rate and increased ectopy. GI normal to inspection, nondistended, normoactive bowel sounds, soft to palpation and non-tender Extremity Extremity Narrative: No pitting of the ankles Skin Rashes: no rashes Neuro Neuro Narrative: Very anxious. She is worried about the surgery and her labs and is faced with only a few more months if she does not have the surgery. Seems very overwhelmed. Psych thought process normal Appearance: appropriate Assessment & Plan Assessment/Plan (1) Iron deficiency: PLAN: Plan 1. Continue therapy 2. Start Buspar 5 mg BID now. 3. Check a BMP, HH and mag now. 4. Continue daily weights and accurate I&O's. the weight is up 3 lbs and she is now back down to Lasix 40 mg only once a day......may need to go back up. 5. She will wear the BIPAP anytime she is sitting in the recliner resting and anytime she is sleeping. 6. She is not able to tolerate 3 hours of therapy a day. She had PT for 30 minutes this AM, ST and OT and she was exhausted when I saw her. She is scheduled for admission to [facility] on 08/14/23 for a scheduled TAVR on 08/15/23. This may happen sooner per her dtr. Tiring her out so much is making her worse. Will focus on doing short periods of therapy, no more than 10-15 minutes at a time. 7. will give a test dose of Iron sucrose today - 100 mg and if she tolerates without any adverse side effects will increase the dose to 200 mg and give 2 doses for a total of 500 mg. All questions were answered to the pt and family satisfaction. Charges/Coding Visit Charges Inpatient E&M: 25709 Subs Hosp L2
[2023-08-07] MEDS: busPIRone 5 MG Tablet PO ×2 (11:48→20:24)
[2023-08-07 11:57] LABS: Hematocrit 30.3 % (37-47); Hemoglobin 9.3 g/dL (12.0-15.0)
[2023-08-07 12:41] LABS: BNP,B-Type NATRIURETIC PEPTIDE 581.6 pg/mL (0-100)
[2023-08-07 12:48] LABS: Anion Gap 4 (5-15); BUN 53 mg/dL (7-18); BUN/Creat Ratio 52.5 RATIO (10-20); Calcium,Total 9.7 mg/dL (8.5-10.1); Chloride 96 mmol/L (98-107); Creatinine, Serum 1.01 mg/dL (0.55-1.02); EST Glomerular Filtration Rate 55 mL/min (>60); Est Glom Filt Rate - Afr Amer 67 mL/min (>60); Glucose 183 mg/dL (74-106); Magnesium 2.3 mg/dL (1.6-2.6); Sodium Level 135 mmol/L (136-145)
[2023-08-07] MEDS: Ipratropium/Albuterol Sulfate 3 ML AMPUL.NEB INHALATION (12:56)
--- NOTE | 2023-08-07 14:35 | CASEMGMT ---
Team meeting held today with pt and pt's daughter present. PT/OT/SN updated pt, daughter and team on pt progress with therapy. Pt fatiguing quickly during therapy sessions due to medical issues which are limiting progress with therapy. SW updated pt that NRD with insurance is 08/13. Pt has a scheduled procedure at the [facility] on 08/13 and will discharge from to [facility] on 08/13. Pt and daughter expressing understanding and agreement. Will continue with treatment plan at this time and ReTeam next week. DICK Comer
[2023-08-07] MEDS: Sodium Ferric Gluconat/Sucrose 125 MG in 0.9% Normal Saline (100mL Bag) 100 ML 110 MG IV (18:26)
[2023-08-07] MEDS: Atorvastatin Calcium 40 MG Tablet PO (20:24)
[2023-08-07] MEDS: Pantoprazole Sodium 40 MG Tablet PO (20:24)
[2023-08-07] MEDS: Acetaminophen 325 MG Tablet 975 MG PO (22:06)
--- NOTE | 2023-08-07 22:36 | NURSING ---
0 daughter in room with pt and call light goes that pt wants to be adjusted in her chair d/t her bottom was getting sore, software applications architect stated that pts iv was leaking. pt currently had iv iron infusing, pt stated that her heart rate was elevated, staff checked and her heart rate was 136. pt was monitoring on her smart watch [id number] rn made aware of pts heart rate and rn texted the doctor. the doctor wanted the pt to have her buspar early and stop iv iron at this time and monitor her heart rate. family made aware of the what the doctor stated and family and pt was agreeable. pt requested to use the bsc and clinical findings were completed at this time. pt went to bed and medications were given, pt taking a few bites of banana , before putting bi-pap back on 2099 staff to check on pt and pt was noted to be awake and reports that she is unable to sleep and voices no other needs 2204 pt rings and wanted her mask off,, pt stated that she needed a break, pt was strongly encouraged not to remove mask but did anyway. pt reports that she is unable to sleep and feels that the machine is turning off when her breathing slows. pt states that she hurts all over and tylenol was given as per order. mask reapplied after tylenol was taken pts sp02 was down to 81%. pulse rate checked and was 138 and regular, pt also requested to have her temp checked and was found to be 98.4 pt is worried about her heart rate and stated that its more than just my nerves. reassurance given with fair effect and CPS called to talk to pt and check bi-pap machine
[2023-08-08] VITALS (10 sets, daily range): BP systolic 111–127; BP diastolic 35–40; PULSE 79–88; RESP 20–28; TEMP 36.2–36.8; O2SAT 93–98; BMI 26.0
--- NOTE | 2023-08-08 00:21 | NURSING ---
20:00- Staff alerted by RT that pt's hr was elevated to 138 and RT was not going to give breathing tx at this time. Pt's IV had started leaking about the same time and pt was a difficult stick earlier in the day. Dr Dutton made aware of these issues. Dr Dutton. gave order to give Buspar early, no more IV attempts today, and let the pt relax.
--- NOTE | 2023-08-08 00:40 | NURSING ---
0035n pt up to the br and requested to sit in the recliner, staff assisted to the pt to the recliner call light in reach, respirations remain high at 22 that increase with exertion pt requested to leave light on in the room and door open.
--- NOTE | 2023-08-08 04:15 | NURSING ---
Reviewed and agree with Kisha MONTES, documentation and assessment charting.
--- NOTE | 2023-08-08 04:40 | NURSING ---
pt rings wanting mask off and staff encouraged pt to keep it on, pt was assisted to the bsc and 02 via n/c was replaced while pt was doing this. pt stated i should be allowed to have a 5minute break from time to time, i feel like i'm in penitentiary pt is only voiding small amts of approx 50cc and having hard extremely small stool, pt has been refusing stool softeners, pt is drinking only sips. sp02 checked and was 94% with the bi-pap on and ap was 84.
[2023-08-08] MEDS: Levothyroxine 100 MCG Tablet PO (06:29)
[2023-08-08] MEDS: Ipratropium/Albuterol Sulfate 3 ML AMPUL.NEB INHALATION ×2 (06:50→12:05)
[2023-08-08] MEDS: Potassium Chloride Oral Tablet 10 MEQ PO (07:57)
[2023-08-08] MEDS: APIXABAN 5 MG TABLET PO ×2 (07:57→20:38)
[2023-08-08] MEDS: Furosemide 40 MG Tablet PO (07:57)
[2023-08-08] MEDS: Methenamine Hippurate 1 GM Tablet PO (07:57)
[2023-08-08] MEDS: Atenolol 25 MG Tablet 12.5 MG PO ×2 (07:57→20:38)
[2023-08-08] MEDS: Vitamin B Comp W-C Capsule 1 CAP PO (07:58)
[2023-08-08] MEDS: Spironolactone 25 MG Tablet PO (07:58)
[2023-08-08] MEDS: busPIRone 5 MG Tablet PO ×2 (07:58→20:38)
[2023-08-08] MEDS: Cholecalciferol (VIT D3) 25 MCG TABLET (1,000 UNITS) PO (07:58)
--- NOTE | 2023-08-08 09:31 | CASEMGMT ---
Team meeting held today with pt and pt's daughter present. PT/OT/SN updated pt, daughter and team on pt progress with therapy. Pt fatiguing quickly during therapy sessions due to medical issues which are limiting progress with therapy. SW updated pt that NRD with insurance is 08/13. Pt has a scheduled procedure at the [facility] on 08/13 and will discharge from to [facility] on 08/13. Pt and daughter expressing understanding and agreement. Will continue with treatment plan at this time and ReTeam next week. DICK Comer
--- NOTE | 2023-08-08 10:22 | PN_ITS ---
Subjective Subjective Afebrile VSS - She was tachycardic last night in the 130's but, HR this morning was 86. Respiratory rate this morning was down to 20. She is 97% saturated on 3 L nasal cannula. Maintaining appropriate oxygen saturation on RA Oral intake - FOOD poor FLUIDS poor She had a standing weight on 08/05/2023 and it was 144 pounds. The following day the weight was 141 pounds and 15 ounces. This was also a standing weight. Bed weight today is 147 pounds which is up from 144 pounds and 3 ounces yesterday (also a bed weight). Urine output yesterday was only 475 cc. Fluid balance was +117. 1 day prior the fluid balance was -861. Discussed with nursing - She was restless last night. She slept in the bed until about 1 and then got into the recliner. The IV came out and pt was very anxious about restarting so we discontinued the order for IV iron sucrose. Reviewed the THERAPY notes Medication list reviewed. She denies CP and lightheadedness. She also denies nausea. She tells me that she is having some trouble swallowing (this could be related to the tachypnea and not being able to breath and swallow with her RR increased). Will discuss with ST. Denies calf pain. Denies dysuria. Needs a lot of reminders to slow her breathing down and take deep breaths. Has urinated only 75 cc today. Not drinking and she is eating poorly. Poor response to the 40 mg of PO Lasix given this AM. She seems less fatigued today. Has been in the bed today. Objective Data Objective Data Vital Signs: Vital Signs Temp Pulse Resp BP Pulse Ox O2 Del Method O2 Flow Rate 97.1 F L 86 20 H 111/37 L 97 Bi-pap 3 08/08/23 07:43 08/08/23 07:43 08/08/23 07:43 08/08/23 07:43 08/08/23 09:04 08/08/23 07:43 08/08/23 09:04 FiO2 30 08/04/23 01:17 Oxygen Flow Rate (L/min) 3 Oxygen Delivery Method Bi-pap Weight: 147 lb Body Mass Index (BMI) 26.0 Intake & Output: Intake and Output for Last 24 Hours 08/06/23 08/07/23 08/08/23 23:59 23:59 23:59 Intake Total 1240 / 1240 592.33 / 592.33 220 / 220 Output Total 2101 / 2101 475 / 475 Balance -861 / -861 117.33 / 117.33 220 / 220 Lab / Micro Data 08/07/23 11:42 08/07/23 11:42 Labs: Laboratory Results - last 24 hr 08/07/23 11:42: Hgb 9.3 L, Hct 30.3 L, Sodium 135 L, Potassium 4.0, Chloride 96 L, Carbon Dioxide 35.0 H, Anion Gap 4 L, BUN 53 H, Creatinine 1.01, Estim Creat Clear Calc 37.70, Est GFR (MDRD) Af Amer 67, Est GFR (MDRD) Non-Af 55 L, B UN/Creatinine Ratio 52.5 H, Glucose 183 H, Calcium 9.7, Magnesium 2.3, B- Natriuretic Peptide 581.6 H Micro: Microbiology 08/05/23 11:20 Stool Stool Occult Blood (CAILIN) - Final Occult Blood Positive Physical Exam Const alert Constitutional Narrative: anxious, cooperative, tachypneic and taking shallow breaths. HEENT HEENT Narrative: + JVD Resp Resp Narrative: Shallow respirations but, when you softball coach her to slow down and take a deeper breath she can. MM are dry. She has no wheezing. BS's in the bases are very diminished. She is not coughing and she denies CP. She has crackles in the left lung [address] the posterior lung field and they can also be heard laterally and anterior on the left. BS's in the R base are even more diminished than on the left. R effusion is bigger than the Left. Some crackles heard on the R posteriorly but mostly just diminished BS's due to effusion. Effort and Inspection: tachypneic Cardio Cardio Narrative: Regular today with an occasional ectopic. No change in MM. Heart rate since this a.m. is ranged from 79-86. Currently she is 94% saturated on a 2-1/2 L nasal cannula. Extremity Extremity Narrative: No pitting edema in the legs or the flanks. Skin General Skin Exam: no breakdown Rashes: no rashes Assessment & Plan Assessment/Plan (1) Debility: (2) Acute on chronic diastolic (congestive) heart failure: (3) Bilateral pleural effusion: (4) Alkalosis, metabolic: (5) Pulmonary hypertension: (6) Aortic regurgitation: QUALIFIERS: Cardiac valve disease etiology: nonrheumatic Q ualified Code(s): I35.1 - Nonrheumatic aortic (valve) insufficiency (7) Acute on chronic blood loss anemia: (8) Iron deficiency: PLAN: Plan 1. Continue therapy - very limited due to very poor exercise tolerance and exacerbation CHF 2. Insert a midline and give Diamox 250 mg IV and Bumex 1 mg IV 3. Recheck a CBC, BMP and MAG in the AM 4. CXR today shows increasing BL pulmonary effusions and increased PVC. Weight is increasing and she is not responding to PO Lasix given this AF. I suspect the tachycardia last night has lead to acute decompensation. 5. Insert a Conner catheter for accurate I&O. 6. Send a UA today after the Conner is inserted. 7. Continue daily weights 8. Hold therapy until we get the CHF under control. 9. Consider giving iron sucrose in the AM via the midline. Charges/Coding Visit Charges Inpatient E&M: 02418 Subs Hosp L2
--- NOTE | 2023-08-08 12:30 | CASEMGMT ---
Social Work SW met with pt and completed assessment. Pt is on bipap but able to communicate with SW. Pt does have a HCPOA on file naming her son Donald Nava as primary and her dgt Param Renteria as secondary. Pt has a document on file at [facility] dated 07/27/22 that revokes pt living will that was signed on 04/16/14. Pt's spouse is currently residing at [facility]. Pt has a planned procedure at [facility] on 08/13 and will discharge from to [facility] on that date. Pt's medical complications are limiting ability to complete therapy. PHQ9 completed and with pt score of 12 indicating moderate depression. Pt stating that positive responses on the assessment are all related to current medical decline. Pt is able to site her family as a positive coping support. SW provided active listening and support. Physician is aware and handling medications. DICK Comer
--- NOTE | 2023-08-08 12:35 | RAD_ITS ---
STUDY: X-RAY CHEST REASON FOR EXAM: Female, 82 years old. Shortness of breath. TECHNIQUE: Single frontal view of the chest. COMPARISON: August 04, 2023 FINDINGS: Low volume inspiration with diffuse interstitial pattern, slightly increased in the bases. Increase in bilateral pleural effusions. Stable cardiomegaly, sternotomy wires and dual lead cardiac pacer. Normal mediastinum and ting. Normal visualized pulmonary arteries. Aortic tortuosity with calcification unchanged. No abnormality of the visualized soft tissue structures of the upper abdomen. RAD/Chest 1 View (Portable) IMPRESSION: Slight radiographic worsening with increase in diffuse interstitial prominence and increased effusions. Findings compatible with worsening interstitial edema/congestive failure. Follow-up chest imaging to resolution recommended. Electronically Signed: Brad Cerrato MD at 12:54 EDT ,
[2023-08-08 15:11] LABS: Mucous, Urine 0 SEEN /hpf (<or=2+)
--- NOTE | 2023-08-08 15:13 | NURSING ---
Notified PICC nurse of need for Midline placement, she stated she is not available this week. Contacted coke drawer, waiting for call back.
[2023-08-08 15:14] LABS: Color, Urine Yellow (Yellow); Glucose, Dipstick Normal (Normal); Ketone-Dipstick Negative (Negative); Leukocyte Esterase-Dipstick 25 /ul (Negative); Nitrite-Dipstick Negative (Negative); Occult Blood-Urine 10 /ul (Negative); Protein-Dipstick 30 mg/dl (Negative); Specific Gravity, Urine 1.015 (1.002-1.030); Urine Bilirubin Dipstick Negative (Negative); Urine Clarity Cloudy (Clear); Urine Urobilinogen Normal (Normal)
[2023-08-08 15:21] LABS: Red Blood Cells-Urine 0-5 SEEN /hpf (0-5); Squamous Epithelial Cells - UA 25-50 SEEN /hpf (5-10)
[2023-08-08 15:23] LABS: Renal Epithelial Cells 10-25 SEEN /hpf (0-5)
[2023-08-08 15:24] LABS: White Blood Cells 5-10 SEEN /hpf (0-5)
[2023-08-08 15:26] LABS: Bacteria 2+ /hpf (None Seen); Hyaline Cast 0-5 SEEN /lpf (0-5)
[2023-08-08] MEDS: Bumetanide 1 MG/4 ML Vial IV (18:52)
[2023-08-08] MEDS: AcetaZOLAMIDE 500 MG/10 ML Vial 250 MG IV (18:52)
[2023-08-08] MEDS: Pantoprazole Sodium 40 MG Tablet PO (20:38)
[2023-08-08] MEDS: Atorvastatin Calcium 40 MG Tablet PO (20:39)
--- NOTE | 2023-08-08 22:31 | NURSING ---
Addendum entered by Miladys Markham 08/08/23 22:39: urinary output at this time was 32.5cc out of the zaragoza bag after receiving bumex and diomox . rn made aware 2229 urinary out checked again and was noted to have approximately 20cc in the zaragoza bag, rn aware Original Note: 2029 pt was noted to anxious when getting breathing tx, wanting the mask off before the tx had completed. reassurance given with fair effect. clinical findings completed at this time and pt was found to have cold ble and feet, with no mottling. pt was noted to be diaphoretic and repositioned for comfort. vs were stable, but had crackles lower anterior pinzon and mid and post bases. urinary out b
[2023-08-09] VITALS (11 sets, daily range): BP systolic 115–123; BP diastolic 33–37; PULSE 17–88; RESP 18–28; TEMP 36.3–36.4; O2SAT 92–95; BMI 25.9
--- NOTE | 2023-08-09 01:01 | NURSING ---
0045 pt awake and requesting a sip of water, staff checked zaragoza for kinks in the tubing. tubing with out kinks , urinary output remains low. rn aware
--- NOTE | 2023-08-09 02:25 | NURSING ---
REVIEWED AND AGREE WITH Kisha MONTES, DOCUMENTATION AND ASSESSMENT CHARTING.
[2023-08-09] MEDS: 0.9% Saline Lock 10 ML Syringe IV ×2 (05:33→10:59)
[2023-08-09] MEDS: Levothyroxine 100 MCG Tablet PO (05:33)
[2023-08-09 05:57] LABS: Absolute Lymphocyte Count 0.69 X10^3/uL (0.83-4.51); Absolute Neutrophil Count 8.2 X10^3/uL (2.0-7.7); Basophil# 0.01 X10^3/uL; Basophil% 0.1 % (0-1); Hematocrit 29.4 % (37-47); Lymphocyte # 0.69 X10^3/ul (0.83-4.51); Lymphocyte % 7.2 % (19-41); Mean Corp Hgb Conc 30.6 g/dL (32-36); Mean Corpuscular Hgb 31.5 pg (27.0-32.0); Mean Corpuscular Volume 102.8 fL (81-99); Mean Platelet Vol. 10.7 fl (6.2-12.0); Monocyte# 0.61 X10^3/uL; Monocyte% 6.3 % (0-10); NRBC Flagged by Analyzer 0.2 % (0-5); Neutrophil # 8.24 X10^3/uL (2.7-7.7); Neutrophil % 85.4 % (47-70); Platelet Count 242 K/mm3 (150-450); RBC Distribution Width CV 15.6 % (11.6-14.6); RBC Distribution Width SD 59.7 fl (35.1-43.9); Red Blood Count 2.86 M/mm3 (4.2-5.4); White Blood Count 9.7 K/mm3 (4.4-11.0)
[2023-08-09 06:43] LABS: Anion Gap 9 (5-15); BUN 75 mg/dL (7-18); Calcium,Total 9.8 mg/dL (8.5-10.1); Chloride 93 mmol/L (98-107); Creatinine, Serum 1.47 mg/dL (0.55-1.02); EST Glomerular Filtration Rate 36 mL/min (>60); Est Glom Filt Rate - Afr Amer 44 mL/min (>60); Glucose 138 mg/dL (74-106); Magnesium 2.4 mg/dL (1.6-2.6); Potassium 4.9 mmol/L (3.5-5.1); Sodium Level 132 mmol/L (136-145)
[2023-08-09] MEDS: Ipratropium/Albuterol Sulfate 3 ML AMPUL.NEB INHALATION ×2 (07:50→13:05)
[2023-08-09] MEDS: Senna/Docusate Sodium 1 Tablet 2 TABLET PO (08:41)
[2023-08-09] MEDS: Spironolactone 25 MG Tablet PO (08:41)
[2023-08-09] MEDS: Atenolol 25 MG Tablet 12.5 MG PO (08:41)
[2023-08-09] MEDS: APIXABAN 5 MG TABLET PO (08:41)
[2023-08-09] MEDS: Cholecalciferol (VIT D3) 25 MCG TABLET (1,000 UNITS) PO (08:41)
[2023-08-09] MEDS: busPIRone 5 MG Tablet PO (08:42)
[2023-08-09] MEDS: Potassium Chloride Oral Tablet 10 MEQ PO (08:42)
[2023-08-09] MEDS: Vitamin B Comp W-C Capsule 1 CAP PO (08:42)
--- NOTE | 2023-08-09 09:03 | PCM.PROGNOTE ---
Subjective Subjective Afebrile VSS -heart rate over the past 24 hours has remained within normal limits. Respiratory rate this morning is 18-20. Blood pressure this a.m. is 115/37 and she had no hypotension yesterday. Maintaining appropriate oxygen saturation on RA Oral intake - FOOD poor FLUIDS poor fluid balance yesterday was +212 despite Diamox and Bumex but, she was incontinent of urine prior to insertion of the Conner. Overnight she was +120. The weight today is 146 pounds and 10 ounces Discussed with nursing - no problems that need addressed Reviewed the THERAPY notes Medication list reviewed. All lab drawn this morning was personally reviewed. The white blood cell count is 9.7 and hemoglobin is 9.0. Platelets are within normal limits. Sodium is 132 and the chloride is 93. CO2 is down to 30 from 35 on 617 1:24 dose of Diamox. The BUN is elevated at 75 and the creatinine is 1.47. The BUN/creatinine ratio is 51 which is up from 41.1 at admission to rehab. Unfortunately weight is also up. Magnesium is 2.4. UA yesterday showed 5-10 WBC's with 2+ bacteria. It was a catheterized specimen. There were 25-50 renal epithelial cells. Urine culture is pending. She is too weak to swallow. C/O severe fatigue and increased work of breathing. Denies CP. Not coughing. Objective Data Objective Data Vital Signs: Vital Signs Temp Pulse Resp BP Pulse Ox O2 Del Method O2 Flow Rate 97.3 F L 88 20 H 115/37 L 94 Nasal Cannula 3 08/09/23 06:00 08/09/23 08:33 08/09/23 08:33 08/09/23 06:00 08/09/23 08:33 08/09/23 08:33 08/09/23 08:33 FiO2 30 08/04/23 01:17 Oxygen Flow Rate (L/min) 3 Oxygen Delivery Method Nasal Cannula Weight: 146 lb 9.718 oz Body Mass Index (BMI) 25.9 Intake & Output: Intake and Output for Last 24 Hours 08/07/23 08/08/23 08/09/23 23:59 23:59 23:59 Intake Total 592.33 / 592.33 420 / 420 220 / 220 Output Total 475 / 475 208 / 208 100 / 100 Balance 117.33 / 117.33 212 / 212 120 / 120 Lab / Micro Data 08/09/23 05:40 08/09/23 05:40 Labs: Laboratory Results - last 24 hr 08/08/23 15:00: Urine Color Yellow, Urine Clarity Cloudy, Urine pH 5.0, Ur Specific [place] 1.015, Urine Protein 30 H, Urine Glucose (UA) Normal, Urine Ketones Negative, Urine Occult Blood 10 H, Urine Nitrite Negative, Urine Bilirubin Negative, Urine Urobilinogen Normal, Ur Leukocyte Esterase 25 H, Urine RBC 0-5 SEEN, Urine WBC 5-10 SEEN, Ur Squamous Epith Cells 25-50 SEEN, Ur Renal Epithelial Cell 10-25 SEEN, Urine Bacteria 2+, Hyaline Casts 0-5 SEEN, Urine Mucus 0 SEEN 08/09/23 05:40: WBC 9.7, RBC 2.86 L, Hgb 9.0 L, Hct 29.4 L, MCV 102.8 H, MCH 31.5, MCHC 30.6 L, RDW Std Deviation 59.7 H, RDW Coeff of Jeaneth 15.6 H, Plt Count 242, MPV 10.7, Immature Gran % (Auto) 1.000 H, Neut % (Auto) 85.4 H, Lymph % (Auto) 7.2 L, [place] % (Auto) 6.3, Eos % (Auto) 0.0, Baso % (Auto) 0.1, Absolute Neuts (auto) 8.2 H, Absolute Lymphs (auto) 0.69 L, Nucleated RBC % 0.2, Sodium 132 L, Potassium 4.9, Chloride 93 L, Carbon Dioxide 30.0, Anion Gap 9, BUN 75 H, Creatinine 1.47 H, Estim Creat Clear Calc 26.10, Est GFR (MDRD) Af Amer 44 L, Est GFR (MDRD) Non-Af 36 L, BUN/Creatinine Ratio 51.0 H, Glucose 138 H, Calcium 9.8, Magnesium 2.4 Micro: Microbiology 08/05/23 11:20 Stool Stool Occult Blood (CAILIN) - Final Occult Blood Positive Radiography Diagnostic Testing: Radiology Impression Chest X-Ray 08/08/23 12:35 IMPRESSION: Slight radiographic worsening with increase in diffuse interstitial prominence and increased effusions. Findings compatible with worsening interstitial edema/congestive failure. Follow-up chest imaging to resolution recommended. Electronically Signed: Brad Cerrato MD at 12:54 EDT , Physical Exam Const Constitutional Narrative: She is arousable. She has conversational dyspnea. Breathing is labored. Her color is not good. HEENT Mouth: dry mucous membranes Resp Resp Narrative: She is tachypneic and respirations are very shallow. No wheezing. Markedly diminished BS's in both bases, R>L. BL crackles. Respirations are labored. Marked conversational dyspnea. No accessory muscle use. Effort and Inspection: tachypneic and labored Cardio regular rate and regular rhythm Cardio Narrative: Having ectopics. No change in the MM. Radial pulses are still strong. GI normal to inspection, nondistended, normoactive bowel sounds, soft to palpation and non-tender GI Narrative: No guarding with palpation. No pitting in the flanks Extremity no calf tenderness Extremity Narrative: No pitting edema of the ankles or distal LE's. The hands are warm to the touch but, the toes are cool. There is no cyanosis. Skin General Skin Exam: no breakdown Rashes: no rashes Assessment & Plan Assessment/Plan (1) Debility: (2) Acute on chronic diastolic (congestive) heart failure: (3) Bilateral pleural effusion: (4) Alkalosis, metabolic: (5) Pulmonary hypertension: (6) Aortic regurgitation: QUALIFIERS: Cardiac valve disease etiology: nonrheumatic Qualified Code(s): I35.1 - Nonrheumatic aortic (valve) insufficiency (7) Acute on chronic blood loss anemia: (8) Iron deficiency: (9) Acute renal failure: (10) Cystitis: PLAN: Plan 1. No therapy today. she is much too weak and SOB. 2. The FEUrea if 13.3% which is consistent with prerenal azotemia. That being said she is up 5 and 1/2 lbs since admission to rehab and the effusions are larger. She has increased work of breathing and is requiring increased oxygen supplementation. She is getting weaker by the day. She likely has IV volume depletion with decreased renal perfusion. The fluid is in the pleural space and we have not been able to improve this with diuretics. I called Dr. Bourne's office and spoke with the personal secretary. He is in surgery but, she was going to send a text to him and ask him to call me between cases. I left a for her dtr Param to call me. In my opinion she needs transferred to [facility] for a higher level of care. I asked if she still wanted to go ahead with TAVR and she said, I have to. No diuretics today. Continue BIPAP. 3. She had 2+ bacteria in a catheterized specimen yesterday and the WBC count is normal but, It went up from 4.9-9.7 in the past 5 days since admission. She is afebrile. Urine culture is pending. Will start Rocephin 1 g IV daily. She lists ampicillin as an allergy but the reaction was diarrhea and not rash or angioedema. 4. She is so weak I do not know if she will be able to survive a TAVR procedure. After I talk with Dr. Bourne may need to discuss code status again with the pt and her family. Charges/Coding Visit Charges Inpatient E&M: 82419 Subs Hosp L2
[2023-08-09 09:47] LABS: Urea Nitrogen, Urine 557 mg/dL (NO RANGE EST.)
[2023-08-09] MEDS: Ceftriaxone 1 GM/50 ML BAG IV (10:59)
[2023-08-09] MEDS: 0.9% Normal Saline (250mL Bag) 250 ML 15 ML IV (10:59)
--- NOTE | 2023-08-09 14:36 | CPS ---
Found patient to be hypoxic (86%) and dyaphoretic on the bipap with a 3 lpm bleed in. Patient was responsive when I called her name. Talked with nursing, they stated that she has been like this before. Turned oxygen up to 6 lpm, rechecked patient and she was 91%. Checked settings on bipap, noted that smart start was enabled, machine looked fine. Cor texted Dr. Lou to make her aware of my findings.
--- NOTE | 2023-08-09 14:50 | CASEMGMT ---
Social Work SW notified by physician that pt has had a decline in health and pt and family has been told pt is near end of life. SW met with pt dgt Param and offered emotional support. Param inquiring about transfer to [facility] for pt. Physician is aware. SW will remain available for emotional support as needed. DICK Comer
--- NOTE | 2023-08-09 21:26 | NURSING ---
[facility] here and patient is discharged at this time to [facility]. Family present with patient.
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
== END 2023-08-09 21:27 | disposition short-term general hospital (02) | DRG 291 ==
PROVIDERS: Admitting Provider Internal Medicine; PCP Internal Medicine; Visit Provider Internal Medicine
DX: I11.0 Hypertensive heart disease with heart failure (principal); I50.33 Acute on chronic diastolic (congestive) heart failure; R57.0 Cardiogenic shock; E87.3 Alkalosis; D62 Acute posthemorrhagic anemia; J91.8 Pleural effusion in other conditions classified elsewhere; N17.9 Acute kidney failure, unspecified; N30.00 Acute cystitis without hematuria; I27.20 Pulmonary hypertension, unspecified; I48.0 Paroxysmal atrial fibrillation; D53.9 Nutritional anemia, unspecified; E03.9 Hypothyroidism, unspecified; I35.1 Nonrheumatic aortic (valve) insufficiency; I25.10 Atherosclerotic heart disease of native coronary artery without angina pectoris; K21.9 Gastro-esophageal reflux disease without esophagitis; E78.00 Pure hypercholesterolemia, unspecified; Z95.4 Presence of other heart-valve replacement; R13.10 Dysphagia, unspecified; I49.3 Ventricular premature depolarization; Z95.0 Presence of cardiac pacemaker; Z79.01 Long term (current) use of anticoagulants; Z79.899 Other long term (current) drug therapy; Z79.890 Hormone replacement therapy
CPT/HCPCS: 36415; 71045; 71046; 80048; 80053; 81001; 82274; 82570; 82607; 82728; 82803; 83540; 83550; 83735; 83880; 84100; 84540; 85014; 85018; 85025; 85027; 85045; 87077; 87086; 87088; 92507; 92523; 94002; 94003; 94640; 94668; 94762; 97110; 97116; 97162; 97166; 97530; 97535; 97802; J7050; A4216; J2916